=== PATIENT | male | born 1960 | race Caucasian/White ===

== ENCOUNTER 2019-11-11 16:50 | Emergency (ER) | payer OTHER, SELFPAY ==
--- NOTE | ~2019-11-11 | XR_ITS ---
EXAMINATION: XR ankle RT min 3V DATE: 11/11/2019 17:48 INDICATION: Twisting right knee injury with fibular fracture. TECHNIQUE: Anteroposterior, oblique, mortise, and lateral views of the right ankle includes the mid t o distal lower leg were obtained. COMPARISON: Right foot radiographs dated 05/21/2017 FINDINGS: Alignment is normal. No fracture. Joint spaces are normal. Increase in size of a now moderate sized p lantar calcaneal spur. Soft tissues are unremarkable with no ankle joint effusion. IMPRESSION: 1. No acute osseous abnormality. Reviewed, dictated and finalized at location A. CLEANER
--- NOTE | ~2019-11-11 | XR_ITS ---
EXAMINATION: XR knee RT min 4V DATE: 11/11/2019 17:21 INDICATION: Lateral sided right knee pain post twisting injury TECHNIQUE: Anteroposterior, 2 oblique and crosstable lateral views of the right knee were obtained COMPARISON: 07/30/2018 FINDINGS: One cortical width lateral displacement of an oblique extra-articular fracture at the proximal metadi aphyseal region of the right fibula. No other fractures identified. Normal alignment and joint spaces at the right knee on nonweightbearing imaging. No joint effusion/layering lipohemarthrosis. IMPRESSION: 1. One cortical width lateral displacement of an oblique fracture of the proximal right fibular metad iaphysis. Consider dedicated radiographs of the right tibia and fibula to exclude a nonvisualized mor e caudal injury. Reviewed, dictated and finalized at location A. 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 One cortical width lateral displacement of an oblique fracture of the proxim al right fibular metadiaphysis. Consider dedicated radiographs of the right tib ia and fibula to exclude a nonvisualized more caudal injury.
--- NOTE | 2019-11-11 17:47 | ED.LOWEXIN ---
HPI - Extremity Injury (Lower) General Chief Complaint: Extremity Injury, Lower Stated Complaint: knee injury Time Seen by Provider: 11/11/19 17:09 History of Present Illness HPI Narrative: Patient is a 59-year-old male who presents ER with right lower extremity pain. Patient was ambulating up some steps after doing laundry when he turned to the left side while planting his right leg. He then had sudden onset pain in the proximal aspect of his [place] and knee area. Reports his knee gave out on him. He has mild medial ankle pain. He is able to perform range of motion and has no new numbness or tingling. The pain radiates from the knee down to the ankle and then back up. It is worse with pointing his toes. Does not take any pain medicine. Related Data Allergies Allergy/AdvReac Type Severity Reaction Status Date / Time No Known Allergies Allergy Unverified 07/30/18 08:58 Review of Systems Musculoskeletal: Musculoskeletal: Reports arthralgias, Denies joint swelling and Denies muscle cramps Neurologic: Denies focal weakness and Denies numbness PMFSH Past Medical History Medical History (Updated 11/11/19 @ 19:07 by Live Caputo MD) Diabetes type 2, controlled Pneumothorax Traumatic hyphema of left eye Surgical History Surgical History (Updated 11/11/19 @ 17:53 by Live Caputo MD) S/P partial colectomy Family History Family History (Updated 04/13/16 @ 23:19 by DOCTOR UNKNOWN) Father Cerebrovascular accident Family history of diabetes mellitus in first degree relative Family history of malignant neoplasm Mother Family history of arthritis Other Diabetes mellitus Family history of allergic disorder Family history of cardiovascular disease Hypertension Social History Social History Smoking status: Current every day smoker Alcohol intake: current Exam Narrative: Exam Narrative: GENERAL: Well-appearing, well-nourished, and in no acute distress. HEAD: Normocephalic, atraumatic. EXTREMITIES: Normal range of motion. Tender palpation over the proximal fibula in the right lower extremity and mild tenderness over the medial malleolus of the ankle. Otherwise normal strength and sensation to the affected lower extremity on the right. SKIN: Warm, dry, no rash. NEURO: No focal deficits. Alert and oriented x3. PSYCH: Normal mood and affect. Course Course Emergency Course: Patient informed of results. Discussed with Dr. Grebing. Patient will be placed in knee immobilizer by nursing staff and given crutches to ambulate. Vital Signs Vital signs: Vital Signs Temperature 97.8 F 11/11/19 18:02 Pulse Rate 91 11/11/19 18:02 Respiratory Rate 20 11/11/19 18:02 Blood Pressure 121/79 11/11/19 18:02 Pulse Oximetry 95 11/11/19 18:02 Temperature 97.8 F 11/11/19 18:02 Pulse Rate 91 11/11/19 18:02 Respiratory Rate 20 11/11/19 18:02 Blood Pressure 121/79 11/11/19 18:02 Pulse Oximetry 95 11/11/19 18:02 MDM - Extremity Injury (Lower) Imaging Data Radiologist's impression: ITS Impressions Knee X-Ray 11/11/19 17:29 IMPRESSION: 1. One cortical width lateral displacement of an oblique fracture of the proximal right fibular metadiaphysis. Consider dedicated radiographs of the right tibia and fibula to exclude a nonvisualized more caudal injury. Ankle X-Ray 11/11/19 18:06 IMPRESSION: 1. No acute osseous abnormality. Discharge Plan Discharge Clinical Impression: Closed right fibular fracture Qualifiers: Encounter type: initial encounter Fibula location: proximal Fracture morphology: unspecified fracture morphology Qualified Code(s): S82.831A - Other fracture of upper and lower end of right fibula, initial encounter for closed fracture Patient Disposition: Home, Self-Care Condition: Stable Instructions: Leg Fracture (ED) Additional Instructions: Bear weight as tolerated on the affected lower extremity. Take [place] as need
[2019-11-11 18:02] VITALS: BP 121/79; PULSE 91; RESP 20; TEMP 36.6; O2SAT 95
[2019-11-11 19:28] VITALS: BP 140/82; PULSE 80; RESP 18; TEMP 36.8; O2SAT 97
== END 2019-11-11 19:30 | disposition home or self-care (01) ==
PROVIDERS: Emergency Provider Emergency Medicine; PCP Emergency Medicine
DX: S82.831A Other fracture of upper and lower end of right fibula, initial encounter for closed fracture (principal); E11.9 Type 2 diabetes mellitus without complications; X50.0XXA Overexertion from strenuous movement or load, initial encounter
CPT/HCPCS: 73564; 73610; 99284

== ENCOUNTER 2020-04-09 10:40 | Emergency (ER) | payer OTHER, SELFPAY ==
[2020-04-09 11:10] VITALS: BP 148/92; PULSE 118; RESP 20; TEMP 36.6; O2SAT 95
[2020-04-09 11:30] LABS: Basophils Absolute Auto 0.1 K/mm3 (0.0-0.1); Basophils Percent Auto 0.6 % (0.2-1.2); Eosinophils Absolute Auto 0.1 K/mm3 (0-0.3); Eosinophils Percent Auto 1.1 % (0-4.4); Hematocrit 42.4 % (42.0-52.0); Hemoglobin 14.4 g/dL (14.0-18.0); Immature Granulocyte Absolute 0.12 K/mm3 (0.00-0.031); Lymphocytes Absolute Auto 1.71 K/mm3 (0.9-3.2); Lymphocytes Percent Auto 13.9 % (18.3-44.2); Mean Corpuscular Hemoglobin 30.9 pg (26-34); Monocytes Absolute Auto 0.9 K/mm3 (0.1-0.6); Monocytes Percent Auto 6.9 % (2.6-8.5); Neutrophils Absolute Auto 9.4 K/mm3 (1.3-6.7); Neutrophils Percent Auto 76.5 % (45.5-73.1); Platelet Count Result 379 k/mm3 (150-375); Red Blood Count 4.66 M/mm3 (4.6-6.20); Red Cell Distribution Width 14.6 % (11.5-14.5); White Blood Count 12.3 K/mm3 (4.5-10.0)
[2020-04-09] MEDS: CLINDAMYCIN 900 MG/NS 50 ML 900 MG/50 ML PIGGYBACK 50 MG IVPB (11:39)
[2020-04-09 11:44] LABS: Alanine Aminotransferase 29 U/L (4-50); Albumin Level 4.4 g/dL (3.5-5.1); Alkaline Phosphatase 127 U/L (38-126); Anion Gap 16.9 mmol/L (7-16); Aspartate Amino Transferase 20 U/L (17-59); Bilirubin,Total 0.5 mg/dL (0.2-1.3); Blood Urea Nitrogen 9 mg/dL (9-20); CRP 6.4 mg/dL (<1.0); Calcium 9.3 mg/dL (8.4-10.2); Carbon Dioxide 21 mmol/L (22-30); Chloride 101 mmol/L (98-107); Estimated CRCL calculation 126 ml/min; Estimated Glomerular Filt Rate > 60; Glucose 134 mg/dL (75-110); Potassium 3.9 mmol/L (3.4-5.0); Sodium 135 mmol/L (137-145)
[2020-04-09] MEDS: FAMOTIDINE 20 MG/2 ML VIAL IV PUSH (12:06)
--- NOTE | 2020-04-09 12:34 | ED.EXTPRO ---
HPI - Extremity Problem General Chief complaint: Extremity Problem,Nontraumatic <EDGAR Vick Last Filed: 04/09/20 13:09> Stated complaint: abcess lt leg <EDGAR Vick Last Filed: 04/09/20 13:09> Time Seen by Provider: 04/09/20 10:47 <EDGAR Vick Last Filed: 04/09/20 13:09> Source: patient <EDGAR Vick Last Filed: 04/09/20 13:09> Mode of arrival: ambulatory <EDGAR Vick Last Filed: 04/09/20 13:09> Limitations: no limitations <EDGAR Vick Filed: 04/09/20 13:09> History of Present Illness HPI Narrative: Patient is a 59-year-old male who presents to emergency department for evaluation of red tender swollen areas to the left inner thigh patient notes that the pain began over the course of the last week patient attempted to mitesh the lesion unsuccessfully patient notes having had similar occurrences in the past patient noted chills but denies any fever vomiting weakness or immunocompromise. Patient has been taking [id number] medications with minimal improvement patient presents per private vehicle in no distress <EDGAR Vick Last Filed: 04/09/20 13:09> Related Data Home medications: Home Medications Medication Instructions Recorded Confirmed aspirin 81 mg tablet,delayed 81 mg PO DAILY 11/13/19 02/18/20 release bupropion HCl 150 mg 24 hr tablet, 150 mg PO QAM 11/13/19 02/18/20 extended release diltiazem HCl 360 mg 360 mg PO DAILY 11/13/19 02/18/20 capsule,extended release 24 hr losartan 100 mg tablet 100 mg PO DAILY 11/13/19 02/18/20 spironolactone 50 mg tablet 50 mg PO DAILY 11/13/19 02/18/20 tamsulosin 0.4 mg capsule 0.4 mg PO DAILY 11/13/19 02/18/20 omeprazole 40 mg capsule,delayed 40 mg PO DAILY 01/14/20 02/18/20 release ipratropium bromide 0.02 % 2.5 ml INHALATION Q6H PRN 01/27/20 02/18/20 solution for inhalation <Juan Jacob PA-C - Last Filed: 04/09/20 13:09> Allergies/Adverse reactions: Allergies Allergy/AdvReac Type Severity Reaction Status Date / Time No Known Allergies Allergy Verified 04/09/20 11:19 <Jaun Jacob PA-C - Last Filed: 04/09/20 13:09> Review of Systems Review of Systems: All systems reviewed & are unremarkable except as noted in HPI and below <Juan Jacob PA-C - Last Filed: 04/09/20 13:09> [facility] Past Medical History Medical History: Medical History Anxiety Arthritis Arthritis of knee, degenerative Bilateral knee pain BMI greater than 40 Collapsed lung Diabetes type 2, controlled Emphysema of lung Fracture of ankle (11/11/19) GERD (gastroesophageal reflux disease) Hypertension Maisonneuve fracture of right lower extremity Pneumonia Pneumothorax Shortness of breath Sleep apnea Traumatic hyphema of left eye Weight gain <Juan Jacob PA-C - Last Filed: 04/09/20 13:09> Surgical History Surgical History: Surgical History S/P partial colectomy <Juan Jacob PA-C - Last Filed: 04/09/20 13:09> Social History Social History: Social History Smoking status: Former smoker Smoking end date: 09/16/18 Alcohol intake: current Drinks per week: 5 Gender identity (if verbalized by the patient): Male <Juan Jacob PA-C - Last Filed: 04/09/20 13:09> Exam Narrative: Exam Narrative: GENERAL: Well-appearing, obese, and in no acute distress. HEAD: Normocephalic, atraumatic. EYES: No conjunctival injection or discharge noted ENT: Nares clear, no rhinorrhea or epistaxis. Mucous membranes moist. CHEST: Clear to auscultation. No respiratory distress. No wheezes rales or rhonchi HEART: Regular rate and rhythm. No murmur heard. EXTREMITIES: Normal range of motion. No edema. SKIN: Warm, dry, no rash. Te
[2020-04-09 13:20] VITALS: BP 140/88; PULSE 100; RESP 20; O2SAT 96
[2020-04-09] MEDS: TETANUS,DIPHTHERIA,AC PERTUSSIS ADULT (0.5 ML) BOOSTRIX IM (13:32)
== END 2020-04-09 13:40 | disposition home or self-care (01) ==
PROVIDERS: Emergency Medicine Emergency Medical Services; Emergency Provider General Practice; PCP Emergency Medicine
DX: L02.416 Cutaneous abscess of left lower limb (principal); Z23 Encounter for immunization; Z90.49 Acquired absence of other specified parts of digestive tract; Z79.82 Long term (current) use of aspirin; F41.9 Anxiety disorder, unspecified; M19.90 Unspecified osteoarthritis, unspecified site; E11.9 Type 2 diabetes mellitus without complications; J43.9 Emphysema, unspecified; K21.9 Gastro-esophageal reflux disease without esophagitis; I10 Essential (primary) hypertension; G47.30 Sleep apnea, unspecified
CPT/HCPCS: 10061; 36415; 80053; 85025; 86140; 87070; 87075; 87077; 87205; 90471; 90715; 96365; 96367; 96375; 99284; J0131

== ENCOUNTER 2020-06-01 11:42 | Outpatient (CLI) | payer OTHER, SELFPAY ==
--- NOTE | ~2020-06-01 | CT_ITS ---
EXAMINATION: CT lung screening DATE: 06/01/2020 12:15 INDICATION: History of tobacco dependence TECHNIQUE: Computed tomography (CT) of the chest was performed without intravenous contrast. The dose -length product was 461.45 mGy-cm. Automated exposure control and iterative reconstruction technique were employed. COMPARISON: CT dated 02/25/2017 FINDINGS: No thoracic lymphadenopathy. No significant pleural or pericardial effusion. Severe emphyse ma. There is bronchiectasis. Stable 5 mm right upper lobe nodule, image 57. Stable 8 mm left upper lo be nodule, image 50. New right lower lobe nodule measuring 5 mm, image 95. New 4 mm right lower lobe nodule, image 83. New left lower lobe nodules, largest measuring 6 mm, image 69. No pneumothorax. Mild thoracic spondyl osis. IMPRESSION: 1. Lung-Rads 4A: [address], or pet/CT follow-up is recommended. Reviewed, dictated and finalized at location B.
== END 2020-06-01 11:43 | disposition home or self-care (01) ==
LOC: ANHIMG 11:46
PROVIDERS: PCP Emergency Medicine; Visit Provider Emergency Medicine
DX: Z12.2 Encounter for screening for malignant neoplasm of respiratory organs (principal); Z87.891 Personal history of nicotine dependence; R91.8 Other nonspecific abnormal finding of lung field
CPT/HCPCS: G0297

== ENCOUNTER 2020-07-05 11:39 | Outpatient (NON) | payer OTHER, SELFPAY ==
[2020-07-05 22:15] LABS: SARS-CoV-2 RNA PCR Negative
== END 2020-07-05 11:40 ==
PROVIDERS: PCP Emergency Medicine; Visit Provider Emergency Medicine
DX: Z20.828 Contact with and (suspected) exposure to other viral communicable diseases (principal); R05 Cough
CPT/HCPCS: 87635; C9803; U0003

== ENCOUNTER 2020-09-01 06:37 | Outpatient (CLI) | payer OTHER, SELFPAY ==
--- NOTE | ~2020-09-01 | CT_ITS ---
EXAMINATION: CT lung screening DATE: 09/01/2020 07:00 INDICATION: History of tobacco dependence TECHNIQUE: Computed tomography (CT) of the chest was performed without intravenous contrast. The dose -length product was 446.36 mGy-cm. Automated exposure control and iterative reconstruction technique were employed. COMPARISON: Comparison to multiple prior studies sequentially, with oldest reviewed study dated 02/25 FINDINGS: There are are right upper pleural calcifications, possibly from previous asbestos exposure. There is gynecomastia. No thoracic lymphadenopathy. Heart size normal. No significant pleural or per icardial effusion. Severe emphysema.. Left lower lobe nodules are not significantly changed measuring 5 mm maximum dimension, image 65 stable left upper lobe nodule measuring 5 mm, image 55. Mild thorac ic spondylosis. No acute osseous abnormality. Visualized aspects of the upper abdomen are unremarkabl e. Gallbladder is present. Small accessory splenule noted.. IMPRESSION: 1. Lung Rads 4A: 3 month follow-up low dose CT or PET/CT recommended. Reviewed, dictated and finalized at location A. 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
== END 2020-09-01 06:38 | disposition home or self-care (01) ==
PROVIDERS: PCP Emergency Medicine; Visit Provider Nurse Practitioner Family
DX: R91.8 Other nonspecific abnormal finding of lung field (principal)
CPT/HCPCS: G0297

== ENCOUNTER 2020-09-14 08:17 | Outpatient (CLI) | payer OTHER, SELFPAY ==
[2020-09-14 09:00] VITALS: PULSE 98; O2SAT 94
[2020-09-14 09:05] VITALS: PULSE 108; O2SAT 86
[2020-09-14 09:10] VITALS: PULSE 110; O2SAT 87
[2020-09-14 09:15] VITALS: PULSE 116; O2SAT 90
[2020-09-14 09:25] VITALS: PULSE 89; O2SAT 94
--- NOTE | 2020-09-14 09:53 | HOMEO2EVAL ---
Home Oxygen Evaluation RC: Home Oxygen (O2) Evaluation Start: 09/14/20 09:50 Freq: Status: Active Protocol: RPE Activity Type Activity Date Activity User E-Sign Co-Sign Detail Recorded Client Recorded Date Recorded By Document 09/14/20 09:00 [email or web address] [email or web address] 09/14/20 09:52 DJO Document 09/14/20 09:05 [email or web address] [email or web address] 09/14/20 09:52 DJO Document 09/14/20 09:10 [email or web address] [email or web address] 09/14/20 09:52 DJO Document 09/14/20 09:15 [email or web address] [email or web address] 09/14/20 09:52 DJO Document 09/14/20 09:25 [email or web address] [email or web address] 09/14/20 09:52 DJO 09/14/20 09/14/20 09/14/20 09:00 09:05 09:10 Home O2 Evaluation Test Phase Resting Exercise Exercise Oxygen Delivery Room Air Room Air Nasal Cannula Oxygen Flow Rate (L/min) 1 Pulse Oximetry (90-100 %) 94 86 L 87 L Pulse Rate (60-100 beats/min) 98 108 H 110 H Activity Tolerance Rating of Perceived Dyspnea (PD) Ambulation Distance (feet) Treatment Charges O2 Evaluation 09/14/20 09/14/20 09:15 09:25 Home O2 Evaluation Test Phase Exercise Resting Oxygen Delivery Nasal Cannula Room Air Oxygen Flow Rate (L/min) 2 Pulse Oximetry (90-100 %) 90 94 Pulse Rate (60-100 beats/min) 116 H 89 Activity Tolerance Good Rating of Perceived Dyspnea (PD) +2 Mild, Some Difficulty, Noticeable to the Observer Ambulation Distance (feet) 700 Treatment Charges
--- NOTE | 2020-09-14 09:53 | PCRCNOTE ---
PT FAILED 6 MINUTE WALK, HOME O2 EVAL DONE AND FAXED TO [facility]
--- NOTE | 2020-09-15 12:03 | P.PCNPFT_ITS ---
PFT Interpretation Full pulmonary function testing 09/14/2020. 1. Flows appear lower side of normal with FEV1 2.42/79% PRED. 2. Following inhaled bronchodilator, there is little objective change. 3. Lung volumes appear normal. 4. Diffusing capacity appears disproportionately reduced. 5. Comparison to prior full pulmonary function testing of 10/04/2015 finds v olumes and diffusing capacity to be unchanged but flows to have declined since that time, disproportionately to aging. Fuad Bartlett MD MSc FACP FCCP
== END 2020-09-14 08:18 | disposition home or self-care (01) ==
PROVIDERS: PCP Emergency Medicine; Visit Provider Nurse Practitioner Family
DX: J43.9 Emphysema, unspecified (principal)
CPT/HCPCS: 94060; 94618; 94726; 94729

== ENCOUNTER 2020-12-23 09:30 | Outpatient (CLI) | payer OTHER, SELFPAY ==
--- NOTE | ~2020-12-23 | XR_ITS ---
EXAMINATION: XR wrist LT min 3V EXAM DATE: 12/23/2020 09:49 INDICATION: No known recent injury provided at this time. Pain of the left wrist. TECHNIQUE: Left wrist frontal, frontal with ulnar deviation, oblique and lateral projections obtained and reviewed. There is no prior study for comparison. FINDINGS: Left wrist scapholunate joint space is maintained. Moderate primary osteoarthritis at the radioscaphoid articulation and the 1st carpometacarpal joint. There are no bony erosions identified. There are no acute fractures or dislocations identified. There is no subcutaneous gas. The soft tis jennifer is unremarkable. There are no radiopaque foreign bodies. IMPRESSION: Moderate primary osteoarthritis at the left radioscaphoid articulation and the 1st carpom etacarpal joint. Reviewed, dictated and finalized at location A. IMPRESSION: Moderate primary osteoarthritis at the left radioscaphoid articulat ion and the 1st carpometacarpal joint.
== END 2020-12-23 09:31 | disposition home or self-care (01) ==
PROVIDERS: PCP Emergency Medicine; Visit Provider Emergency Medicine
DX: M19.032 Primary osteoarthritis, left wrist (principal)
CPT/HCPCS: 73110

== ENCOUNTER → 2021-02-04 01:39 | Outpatient (CLI) | payer OTHER, SELFPAY ==
[2021-02-04 19:55] LABS: SARS-CoV-2 RNA PCR Negative
== END ==
PROVIDERS: PCP Emergency Medicine; Visit Provider Internal Medicine Gastroenterology
DX: Z01.812 Encounter for preprocedural laboratory examination (principal); Z20.822 Contact with and (suspected) exposure to COVID-19
CPT/HCPCS: C9803; U0003; U0005

== ENCOUNTER 2021-02-07 03:12 | Day surgery (SDC) | payer OTHER, SELFPAY ==
[2021-01-26 14:02] VITALS: BMI 41.9
[2021-02-07 06:46] VITALS: BP 141/75; PULSE 95; RESP 18; TEMP 36.8; O2SAT 95; BMI 41.8
[2021-02-07] MEDS: LACTATED RINGERS 1,000 ML 150 ML IV CONT (06:57)
[2021-02-07 07:04] LABS: Glucose Point of Care 138 mg/dl (65-105)
--- NOTE | 2021-02-07 07:23 | WPDANESEPPF ---
Anes - Initial Pre Proc Eval Procedure: Operation Date: 02/07/21 08:00 Proposed Procedures p Esophagogastroduodenoscopy - Oz Rojas MD Date/Time: 02/07/21 07:23 Surgeon: Oz Rojas MD Pre Op Diagnosis: barretts esophagus Patient Data Age: 60 Gender: M Height: 5 ft 7 in Weight: 121.3 kg Last Vital Signs Temp 98.2 F 02/07/21 06:46 Pulse 95 02/07/21 06:46 Resp 18 02/07/21 06:46 BP 141/75 H 02/07/21 06:46 Pulse Ox 95 02/07/21 06:46 Allergies Allergy/AdvReac Type Severity Reaction Status Date / Time No Known Allergies Allergy Verified 02/07/21 06:42 Home Medications Medication Instructions Recorded Confirmed Type aspirin 81 mg tablet,delayed 81 mg PO DAILY 11/13/19 01/26/21 History release bupropion HCl 150 mg 24 hr tablet, 150 mg PO QAM 11/13/19 01/26/21 History extended release diltiazem HCl 360 mg 360 mg PO DAILY 11/13/19 01/26/21 History capsule,extended release 24 hr losartan 100 mg tablet 100 mg PO DAILY 11/13/19 01/26/21 History spironolactone 50 mg tablet 50 mg PO DAILY 11/13/19 01/26/21 History tamsulosin 0.4 mg capsule 0.4 mg PO DAILY 11/13/19 01/26/21 History omeprazole 40 mg capsule,delayed 40 mg PO DAILY 01/14/20 01/26/21 History release albuterol sulfate 90 mcg/actuation 2 inh INHALATION Q6H PRN #1 each 07/29/20 01/26/21 Rx breath activated powder inhaler fluticasone propionate 50 1 spray NASAL BID PRN #18.2 ml 07/29/20 01/26/21 Rx mcg/actuation nasal spray,suspension ipratropium 0.5 mg-albuterol 3 mg 3 ml INHALATION QID PRN #360 ml 07/29/20 01/26/21 Rx (2.5 mg base)/3 mL nebulization soln mometasone-formoterol HFA 200 2 puff INHALATION BID #13 gm 07/29/20 01/26/21 Rx mcg-5 mcg/actuation aerosol inhaler metformin 500 mg tablet 500 mg PO DAILY 01/04/21 01/26/21 History tiotropium bromide 18 mcg capsule 1 cap INHALATION DAILY #30 cap 01/04/21 01/26/21 Rx with inhalation device metformin 500 mg PO BID 02/07/21 02/07/21 History Laboratory Tests 02/07/21 07:00 POC Capillary Glucose 138 mg/dl H mg/dl (65-105) Patient hx anesthesia problems: none Family hx anesthesia problems: none PMFSH Past Medical History Medical History Anxiety Arthritis Arthritis of knee, degenerative Bilateral knee pain BMI greater than 40 Collapsed lung Diabetes type 2, controlled Emphysema of lung Fracture of ankle (11/11/19) GERD (gastroesophageal reflux disease) Hypertension Left knee DJD Maisonneuve fracture of right lower extremity Pneumonia Pneumothorax Right knee DJD Shortness of breath Sleep apnea Traumatic hyphema of left eye Weight gain Surgical History Surgical History S/P partial colectomy Family History Family History Father Cerebrovascular accident Family history of diabetes mellitus in first degree relative Family history of malignant neoplasm Mother Family history of arthritis Other Arthritis Diabetes mellitus Family history of allergic disorder Family history of cardiovascular disease Heart disease Hypertension Social History Social History Smoking status: Former smoker Tobacco type: cigarettes Smoking end date: 09/16/18 Alcohol intake: current Drinks per week: 5 Substance use: never Substance use type: does not use Living arrangements: with friend(s) Gender identity (if verbalized by the patient): Male Spiritual care concerns: No Anes - Eval Final PreProcedure Day of Procedure 02/07/21 07:23 Patient weight: morbidly obese Heart: regular rate and rhythm Lungs: clear to auscultation Airway: Mallampati scale class III Neurological: alert and oriented Last oral intake: >/= 8 hours ASA classification: IV Emergent: no Anesthetic plan: p
[2021-02-07] MEDS: BENZOCAINE (*SP) 60 ML SPRAY CAN (HURRICAINE) 1 SPRAY MUCOUS MEM (07:49)
[2021-02-07 08:01] VITALS: BP 123/71; PULSE 99; RESP 28; O2SAT 95
[2021-02-07 08:11] VITALS: BP 118/74; PULSE 92; RESP 17; O2SAT 96
[2021-02-07 08:21] VITALS: BP 127/85; PULSE 91; RESP 20; O2SAT 98
--- NOTE | 2021-02-08 14:40 | PM.HPGS ---
History of Present Illness History of Present Illness Consent: Risks, benefits, and alternatives have been discussed and questions answered. Patient agrees to proceed with procedure. Chief complaint: barretts esophagus Narrative: Ivan Lawson is a 60 year old male with known Julian's esophagus who is overdue for his follow-up endoscopy. Also, his father from esophageal cancer. He is having minimal symptoms now and no dysphagia Review of Systems Review of Systems: All systems reviewed & are unremarkable except as noted in HPI and below PMFSH Past Medical History Medical History Anxiety Arthritis Arthritis of knee, degenerative Bilateral knee pain BMI greater than 40 Collapsed lung Diabetes type 2, controlled Emphysema of lung Fracture of ankle (11/11/19) GERD (gastroesophageal reflux disease) Hypertension Left knee DJD Maisonneuve fracture of right lower extremity Pneumonia Pneumothorax Right knee DJD Shortness of breath Sleep apnea Traumatic hyphema of left eye Weight gain Surgical History Surgical History S/P partial colectomy Family History Family History Father Cerebrovascular accident Family history of diabetes mellitus in first degree relative Family history of malignant neoplasm Mother Family history of arthritis Other Arthritis Diabetes mellitus Family history of allergic disorder Family history of cardiovascular disease Heart disease Hypertension Social History Social History Smoking status: Former smoker Tobacco type: cigarettes Smoking end date: 09/16/18 Alcohol intake: current Drinks per week: 5 Substance use: never Substance use type: does not use Living arrangements: with friend(s) Gender identity (if verbalized by the patient): Male Spiritual care concerns: No Meds Home Medications and Allergies Home Medications Medication Instructions Recorded Confirmed Type aspirin 81 mg tablet,delayed 81 mg PO DAILY 11/13/19 01/26/21 History release bupropion HCl 150 mg 24 hr tablet, 150 mg PO QAM 11/13/19 01/26/21 History extended release diltiazem HCl 360 mg 360 mg PO DAILY 11/13/19 01/26/21 History capsule,extended release 24 hr losartan 100 mg tablet 100 mg PO DAILY 11/13/19 01/26/21 History spironolactone 50 mg tablet 50 mg PO DAILY 11/13/19 01/26/21 History tamsulosin 0.4 mg capsule 0.4 mg PO DAILY 11/13/19 01/26/21 History omeprazole 40 mg capsule,delayed 40 mg PO DAILY 01/14/20 01/26/21 History release albuterol sulfate 90 mcg/actuation 2 inh INHALATION Q6H PRN #1 each 07/29/20 01/26/21 Rx breath activated powder inhaler fluticasone propionate 50 1 spray NASAL BID PRN #18.2 ml 07/29/20 01/26/21 Rx mcg/actuation nasal spray,suspension ipratropium 0.5 mg-albuterol 3 mg 3 ml INHALATION QID PRN #360 ml 07/29/20 01/26/21 Rx (2.5 mg base)/3 mL nebulization soln mometasone-formoterol HFA 200 2 puff INHALATION BID #13 gm 07/29/20 01/26/21 Rx mcg-5 mcg/actuation aerosol inhaler metformin 500 mg tablet 500 mg PO DAILY 01/04/21 01/26/21 History tiotropium bromide 18 mcg capsule 1 cap INHALATION DAILY #30 cap 01/04/21 01/26/21 Rx with inhalation device metformin 500 mg PO BID 02/07/21 02/07/21 History Allergies Allergy/AdvReac Type Severity Reaction Status Date / Time No Known Allergies Allergy Verified 02/07/21 06:42 Exam Const: General: alert Orientation/consciousness: patient oriented x3 Resp: Auscultation: clear to auscultation bilaterally Cardio: Rhythm: regular rhythm GI: GI Palp: Yes Soft to palpation and No Tenderness to palpation present (GI) Neuro: General: patient oriented x3 Assessment and Plan Assessment and plan (1) Julian's esophagus: Code(s): K22.70 - B
== END 2021-02-07 08:30 | disposition home or self-care (01) ==
PROVIDERS: PCP Emergency Medicine; Visit Provider Internal Medicine Gastroenterology
PROC: 0DJ08ZZ Inspection of Upper Intestinal Tract, Via Natural or Artificial Opening Endoscopic (ICD-10-PCS; CPT 43235; principal; 2021-02-07 08:00)
DX: K22.70 Barrett's esophagus without dysplasia (principal); I10 Essential (primary) hypertension; E11.9 Type 2 diabetes mellitus without complications; J43.9 Emphysema, unspecified; K21.9 Gastro-esophageal reflux disease without esophagitis; M17.0 Bilateral primary osteoarthritis of knee; R63.5 Abnormal weight gain; G47.30 Sleep apnea, unspecified; F41.9 Anxiety disorder, unspecified; Z90.49 Acquired absence of other specified parts of digestive tract; Z80.0 Family history of malignant neoplasm of digestive organs; Z87.891 Personal history of nicotine dependence
CPT/HCPCS: 43239; 82948; 88305; J2704; J7120

== ENCOUNTER 2021-03-16 05:10 | Emergency (ER) | payer OTHER, SELFPAY ==
[2021-03-16] VITALS (12 sets, daily range): BP systolic 140–164; BP diastolic 88–99; PULSE 95–105; RESP 15–23; TEMP 37.2; O2SAT 96–98
--- NOTE | ~2021-03-16 | CT_ITS ---
EXAMINATION: CT brain wo con DATE: 03/16/2021 05:33 INDICATION: Altered mental status. TECHNIQUE: Computed tomography (CT) of the head was performed without intravenous contrast. Sagittal and coronal reconstructions were performed. The mA was adjusted according to patient size. Iterative reconstruction technique was employed. The dose-length product was 605.33 mGy-cm. COMPARISON: None FINDINGS: No acute intracranial hemorrhage, acute infarction or abnormal extra axial fluid collection. There is mild scattered white matter hypoattenuation consistent with chronic small vessel ischemic disease. V entricles are normal and symmetric. No mass/mass effect. Changes of left intraocular lens replacement . The orbits, paranasal sinuses and mastoid air cells are normal. Intracranial calcified cerebral ath erosclerosis is noted. IMPRESSION: 1. No acute intracranial process. 2. Mild scattered white matter hypoattenuation consistent with chronic small vessel ischemic disease. Reviewed, dictated and finalized at location A. IMPRESSION: 1. No acute intracranial process. 2. Mild scattered white matter hypoattenuation consistent with chronic small ve ssel ischemic disease.
--- NOTE | 2021-03-16 05:54 | ECG_ITS ---
Measurements Intervals [place] Rate: 98 P: 33 [place]: 178 QRS: 10 QRSD: 92 T: 28 QT: 338 QTc: 432 Interpretive Statements SINUS RHYTHM BASELINE ARTIFACT- I, III NORMAL ECG Electronically Signed On 03-16-2021 6:32:25 CDT by Doug Leon D.O.
--- NOTE | 2021-03-16 05:55 | ED.GENADULT ---
HPI - General Adult General Chief complaint: Unspecified Stated complaint: anxiety/weakness Time Seen by Provider: 03/16/21 05:51 Source: patient Mode of arrival: ambulatory Limitations: no limitations History of Present Illness HPI narrative: Patient is a 60-year-old male complaining of having a dream about having a dream about having another dream about having a stroke and so it worried him and now he is here in the emergency room. Patient denies any speech or visual disturbance, focal weakness or numbness, unsteady gait, chest pain, shortness of breath, abdominal pain, nausea, vomiting, fever or chills. Related Data Home Medications Medication Instructions Recorded Confirmed aspirin 81 mg tablet,delayed 81 mg PO DAILY 11/13/19 03/14/21 release bupropion HCl 150 mg 24 hr tablet, 150 mg PO QAM 11/13/19 03/14/21 extended release diltiazem HCl 360 mg 360 mg PO DAILY 11/13/19 03/14/21 capsule,extended release 24 hr losartan 100 mg tablet 100 mg PO DAILY 11/13/19 03/14/21 spironolactone 50 mg tablet 50 mg PO DAILY 11/13/19 03/14/21 tamsulosin 0.4 mg capsule 0.4 mg PO DAILY 11/13/19 03/14/21 omeprazole 40 mg capsule,delayed 40 mg PO DAILY 01/14/20 03/14/21 release metformin 500 mg PO BID 02/07/21 03/14/21 Allergies Allergy/AdvReac Type Severity Reaction Status Date / Time No Known Allergies Allergy Verified 03/16/21 05:21 Review of Systems Review of Systems: All systems reviewed & are unremarkable except as noted in HPI and below Constitutional: Constitutional: Denies body ache(s), Denies chills, Denies excessive sweating, Denies fatigue, Denies fever(s), Denies headache(s), Denies lethargy, Denies malaise, Denies weakness and Denies weight loss Eyes: Eyes: Denies blurry vision, Denies change in vision and Denies loss of vision ENT: Denies dizziness, Denies ear discharge, Denies headache(s), Denies lip swelling, Denies epistaxis, Denies nasal congestion, Denies neck pain, Denies throat swelling and Denies tongue swelling Cardiovascular: Cardiovascular: Denies chest pain, Denies chest pain at rest, Denies chest pain with activity, Denies diaphoresis, Denies rapid heart rate, Denies edema, Denies irregular heart rhythm, Denies lightheadedness, Denies palpitations, Denies dyspnea and Denies dyspnea on exertion Respiratory: Respiratory: Denies chest congestion, Denies cough, Denies hemoptysis, Denies dyspnea and Denies dyspnea on exertion Gastrointestinal: Gastrointestinal: Denies abdominal pain, Denies melena, Denies hematochezia, Denies diarrhea, Denies nausea, Denies vomiting and Denies hematemesis Musculoskeletal: Musculoskeletal: Denies abnormal gait, Denies deformity, Denies joint swelling, Denies limited range of motion, Denies neck pain and Denies numbness Neurologic: Denies Abnormal speech present, Denies abnormal gait, Denies confusion, Denies dizziness, Denies headache(s), Denies focal weakness, Denies loss of vision, Denies numbness, Denies Other visual disturbances, Denies Sensory deficit (Neuro) and Denies weakness Psychiatric: Psychiatric: Denies confusion, Denies depression, Denies auditory hallucinations, Denies homicidal ideation and Denies suicidal ideation Endocrine: Endocrine: Denies cold intolerance, Denies excessive sweating, Denies fatigue, Denies heat intolerance and Denies palpitations Hematologic/Lymphatic: Hematologic/Lymphatic: Denies easy bleeding and Denies easy bruising Allergic/Immunologic: Allergic/Immunologic: Denies lip swelling, Denies throat swelling and Denies tongue swelling PMFSH Past Medical History Medical History Anxiety Arthritis Arthritis of knee, degenerative Bilateral knee pain BMI greater than 40 Collapsed lung Diabetes type 2, controlled Emphysema of lung Fracture of ankle (11/11/19) GERD (gastroesophageal reflux disease) Hypertension Knee joint effusion Left knee DJD Maisonneuve fracture of right lower ex
[2021-03-16 06:04] LABS: Basophils Percent Auto 0.2 % (0.2-1.2); Eosinophils Percent Auto 0.1 % (0-4.4); Hematocrit 44.6 % (42.0-52.0); Hemoglobin 14.9 g/dL (14.0-18.0); Immature Granulocyte Absolute 0.21 K/mm3 (0.00-0.031); Immature Granulocyte Percent A 1.1 % (0-0.5); Lymphocytes Absolute Auto 2.02 K/mm3 (0.9-3.2); Lymphocytes Percent Auto 10.8 % (18.3-44.2); Mean Corpuscular HGB Conc 33.4 g/dl (32-36); Mean Corpuscular Hemoglobin 31.4 pg (26-34); Mean Corpuscular Volume 94.1 fl (80-100); Monocytes Absolute Auto 1.1 K/mm3 (0.1-0.6); Monocytes Percent Auto 5.7 % (2.6-8.5); Neutrophils Absolute Auto 15.3 K/mm3 (1.3-6.7); Neutrophils Percent Auto 82.1 % (45.5-73.1); Platelet Count Result 428 k/mm3 (150-375); Red Blood Count 4.74 M/mm3 (4.6-6.20); Red Cell Distribution Width 13.2 % (11.5-14.5); White Blood Count 18.7 K/mm3 (4.5-10.0)
[2021-03-16 06:24] LABS: Anion Gap 14 mmol/L (8-16); Blood Urea Nitrogen 10 mg/dL (9-20); Calcium 9.5 mg/dL (8.4-10.2); Carbon Dioxide 21 mmol/L (22-30); Chloride 105 mmol/L (98-107); Estimated CRCL calculation 139 ml/min; Estimated Glomerular Filt Rate > 60; Glucose 158 mg/dL (75-110); Potassium 3.8 mmol/L (3.4-5.0); Sodium 140 mmol/L (137-145)
[2021-03-16 06:36] LABS: Troponin I < 0.012 ng/mL (0.000-0.034)
[2021-03-16] MEDS: ASPIRIN 81 MG CHEWABLE TABLET 324 MG PO (07:13)
== END 2021-03-16 07:15 | disposition home or self-care (01) ==
PROVIDERS: Emergency Provider Emergency Medicine; PCP Emergency Medicine
DX: I10 Essential (primary) hypertension (principal); E11.9 Type 2 diabetes mellitus without complications; J43.9 Emphysema, unspecified; F41.9 Anxiety disorder, unspecified; Z87.891 Personal history of nicotine dependence; Z79.82 Long term (current) use of aspirin; Z79.84 Long term (current) use of oral hypoglycemic drugs
CPT/HCPCS: 36415; 70450; 80048; 84484; 85025; 93005; 99284; A9270

== ENCOUNTER 2021-04-06 12:50 | Outpatient (CLI) | payer OTHER, SELFPAY ==
--- NOTE | ~2021-04-06 | US_ITS ---
EXAMINATION: US carotid duplex BI DATE: 04/06/2021 13:39 INDICATION: Slurred speech, hemiparesis and facial weakness. TECHNIQUE: Grayscale, color Doppler, and pulsed Doppler images of the cervical carotid arteries were obtained. The degree of vessel stenosis is placed in one of the following categories: normal, <50%, 5 0-69%, >=70% but less than near-occlusion, near-occlusion, or total occlusion. Note that percent sten osis relative to normal distal artery lumen diameter is indirectly measured from velocity measurement s as described by Williams, et al. Radiology 2003; 229:340-346. COMPARISON: None. FINDINGS: RIGHT: The right common carotid artery (CCA) peak systolic velocity (PSV) is 127 cm/s. The right internal ca rotid artery (ICA) PSV is 59 cm/s. The right ICA end-diastolic velocity (EDV) is 19 cm/s. The right I CA/CCA PSV ratio is 0.5. Grayscale and color Doppler images yield an estimate of <50% diameter reduct ion from plaque in the ICA. The external carotid artery (ECA) PSV is 188 cm/s. There is antegrade kashif w in the right vertebral artery. LEFT: The left CCA PSV is 93 cm/s. The left ICA PSV is 81 cm/s. The left ICA EDV is 28 cm/s. The left ICA/C CA PSV ratio is 0.9. Grayscale and color Doppler images yield an estimate of <50% diameter reduction from plaque in the ICA. The ECA PSV is 93 cm/s. There is antegrade flow in the left vertebral artery. IMPRESSION: 1. <50% stenosis in the right internal carotid artery. 2. <50% stenosis in the left internal carotid artery. Reviewed, dictated and finalized at location A.
== END 2021-04-06 12:51 | disposition home or self-care (01) ==
PROVIDERS: PCP Emergency Medicine; Visit Provider Emergency Medicine
DX: I65.23 Occlusion and stenosis of bilateral carotid arteries (principal); R47.81 Slurred speech; R20.2 Paresthesia of skin
CPT/HCPCS: 93880

== ENCOUNTER 2021-05-11 08:40 | Outpatient (CLI) | payer OTHER, SELFPAY ==
--- NOTE | ~2021-05-11 | CT_ITS ---
EXAMINATION: CT diagnostic chest wo con EXAM DATE: 05/11/2021 09:12 INDICATION: R91.8 - Other nonspecific abnormal finding of lung field. Cough and shortness of breath. TECHNIQUE: Spiral CT of the chest without contrast. Axial, coronal and sagittal images of the chest were reviewed. Coronal maximum intensity pixel images of chest reviewed. The dose-length product ( DLP) for this examination was 451.92 mGy-cm. The exposure was tailored according to patient size (au to mA exposure control), and iterative reconstruction (ASIR) was used as additional dose reduction te chnique. Comparison is made to prior examination from 09/01/2020. FINDINGS: Interval development of left upper lobe peripheral wedge-shaped opacity measuring about 4 cm, with some soft tissue density extension toward the hilum. Differential diagnosis includes pneumon ia and cancer. Please clinically correlate. Interval development of mildly enlarged prevascular lymph node measuring 1.5 x 1.1 cm. There is severe bilateral upper lobe emphysema. There are no pleural or pericardial effusions. Trac heobronchial tree is patent. There is no pneumothorax. Heart normal in size. There is mild to m oderate coronary arterial calcification, arterial sclerosis. Upper abdomen is unremarkable. There is thoracic spondylosis without osteoblastic or osteolytic lesions identified. Right upper pleural ca lcification. Bilateral gynecomastia. IMPRESSION: 1. Interval development of ill-defined 4 cm left upper lobe masslike opacity, differential diagnosis including cancer, pneumonia, cryptogenic organizing pneumonia. If patient has pneumonia clinically, consider treating and obtaining repeat chest x-ray or CT in 2-4 weeks. If not, consider percutaneous biopsy. 2. Development of mildly enlarged prevascular lymph node. 3. Severe upper lobe emphysema. I left a message for Dr. Sadiq Nunez on 05/11/2021 12:37 CDT. I provided my direct number, request ed call back to discuss findings in this case. Reviewed, dictated and finalized at location A. IMPRESSION: 1. Interval development of ill-defined 4 cm left upper lobe masslike opacity, differential diagnosis including cancer, pneumonia, cryptogenic organizing pneu monia. If patient has pneumonia clinically, consider treating and obtaining rep eat chest x-ray or CT in 2-4 weeks. If not, consider percutaneous biopsy. 2. Development of mildly enlarged prevascular lymph node. 3. Severe upper lobe emphysema. I left a message for Dr. Sadiq Nunez on 05/11/2021 12:37 CDT. I provided my direct number, requested call back to discuss findings in this case.
== END 2021-05-11 08:41 | disposition home or self-care (01) ==
PROVIDERS: PCP Emergency Medicine; Visit Provider Nurse Practitioner Family
DX: R91.8 Other nonspecific abnormal finding of lung field (principal); J43.9 Emphysema, unspecified
CPT/HCPCS: 71250

== ENCOUNTER 2021-05-24 09:06 | Outpatient (CLI) | payer OTHER, SELFPAY ==
[2021-05-17 10:24] VITALS: BMI 41.5
--- NOTE | ~2021-05-24 | CT_ITS ---
EXAMINATION:CT diagnostic chest wo con DATE: 05/24/2021 11:12 INDICATION: Left lung upper lobe mass. TECHNIQUE: Computed tomography (CT) of the chest was performed without intravenous contrast. Automate d exposure control and iterative reconstruction technique were employed. The dose-length product (DLP ) was 709.02 mGy-cm. COMPARISON: Chest CT 05/11/2021, 09/01/2020 FINDINGS: There is moderate emphysema including areas of focally severe emphysema in the upper lobes. There is a 5 mm nodule in right lung upper lobe, stable from 09/01/2020, likely benign. There is a 4 mm nodule in right lower lobe is stable from 09/01/2020, likely benign. There are peripheral areas o f mild atelectasis and scarring in right lung. In left upper lobe, there are airspace opacities shanti ing 7.5 x 6.7 cm including areas of cavitation and peripheral air bronchograms. No pleural effusion. There is a staple line in right lung upper lobe. There is a 10 x 14 mm node in the aorticopulmonary w indow, increased from 12 x 9 mm on 09/01/2020. There is mild left hilar lymphadenopathy, similarly wo rsened from 09/01/2020. The heart size is normal. There are coronary artery calcifications. No perica rdial effusion. There is diffuse hepatic steatosis. There is a 13 mm mass in left adrenal gland measu ring low-attenuation, consistent with an adenoma. Bilateral gynecomastia is noted. There is severe th oracic spondylosis. IMPRESSION: 1. Airspace opacities in left lung upper lobe with worsening from 05/11/21, consistent with pneumonia. The patient has not received recent antibiotics. Chest CT with contrast is recommended in [address] administration of a course of antibiotics to confirm improvement or resolution and exclude malign jake. I discussed this case with Sadiq Nunez. 2. Mild left hilar and mediastinal lymphadenopathy, likely reactive. 3. Moderate emphysema. Reviewed, dictated and finalized at location A. IMPRESSION: 1. Airspace opacities in left lung upper lobe with worsening from 05/11/21, cons istent with pneumonia. The patient has not received recent antibiotics. Chest C T with contrast is recommended in 1 month after administration of a course of a ntibiotics to confirm improvement or resolution and exclude malignancy. I discu ssed this case with Sadiq Nunez. 2. Mild left hilar and mediastinal lymphadenopathy, likely reactive. 3. Moderate emphysema.
[2021-05-24 09:46] LABS: Mean Platelet Volume 8.9 fl (7.4-10.4); Platelet Count Result 403 k/mm3 (150-375)
[2021-05-24 09:53] LABS: Prothrombin Time 12.7 Seconds (11.1-14.7)
== END 2021-05-24 09:07 | disposition home or self-care (01) ==
PROVIDERS: Radiology Diagnostic Radiology; PCP Emergency Medicine; Visit Provider Nurse Practitioner Family
DX: J43.9 Emphysema, unspecified (principal); R91.8 Other nonspecific abnormal finding of lung field; R59.0 Localized enlarged lymph nodes
CPT/HCPCS: 36415; 71250; 85049; 85610

== ENCOUNTER 2021-06-21 07:59 | Outpatient (CLI) | payer OTHER, SELFPAY ==
--- NOTE | ~2021-06-21 | XR_ITS ---
XR chest 2V DATE: 06/21/2021 08:14 INDICATION: One-month follow-up of left upper lobe airspace opacities consistent with pneumonia TECHNIQUE: PA and lateral views COMPARISON: 05/24/[address] chest FINDINGS: There is focal patchy consolidation in the left upper lobe which appears mildly improved si nce 05/24/2021 CT chest examination. Continued radiographic follow-up in 2-4 weeks is recommended. Emphysematous changes are again noted. Heart size is within normal range. No pleural effusion or pulmonary vascular congestion or pneumothor ax. IMPRESSION: Mild improvement of patchy left upper lobe consolidating infiltrate; continued radiograph ic follow-up in 2-4 weeks is recommended Emphysema Reviewed, dictated and finalized at location A. IMPRESSION: Mild improvement of patchy left upper lobe consolidating infiltrate ; continued radiographic follow-up in 2-4 weeks is recommended Emphysema
== END 2021-06-21 08:00 | disposition home or self-care (01) ==
LOC: ANHIMG 08:01
PROVIDERS: PCP Emergency Medicine; Visit Provider Nurse Practitioner Family
DX: J43.9 Emphysema, unspecified (principal)
CPT/HCPCS: 71046

== ENCOUNTER 2021-07-03 08:45 | Outpatient (CLI) | payer OTHER, SELFPAY ==
--- NOTE | ~2021-07-03 | CT_ITS ---
EXAMINATION:CT diagnostic chest wo con DATE: 07/03/2021 09:31 INDICATION: Other nonspecific abnormal finding of lung field. TECHNIQUE: Computed tomography (CT) of the chest was performed without intravenous contrast. Automate d exposure control and iterative reconstruction technique were employed. The dose-length product (DLP ) was 645.54 mGy-cm. COMPARISON: Chest CT 05/24/2021, 09/01/2020, 05/11/2021, chest 2 views 06/21/2021 FINDINGS: There is moderate emphysema. There is mild atelectasis and scarring bilaterally. There is a 5 mm nodule in peripheral right upper lobe, stable from 09/01/20. There are airspace opacities in le ft upper lobe measuring 5.7 x 5.0 cm, decreased from 7.1 x 6.1 cm on 05/24/21 and with interval change in morphology. There are 4 mm and 3 mm nodules in left lower lobe, stable from 09/01/20. There is a s taple line in right upper lobe. No pleural effusion. There is diffuse hepatic steatosis. The heart si ze is normal. There are coronary artery calcifications. No pericardial effusion. There is mild medias tinal and left hilar lymphadenopathy. A node in the aorticopulmonary window measures 14 x 10 mm. Ther e is severe thoracic spondylosis. IMPRESSION: 1. Left upper lobe airspace opacities with interval improvement, consistent with pneumonia. Continued imaging follow-up is recommended to confirm resolution. 2. Moderate emphysema. 3. Mild mediastinal and left hilar lymphadenopathy, likely reactive. Reviewed, dictated and finalized at location A. IMPRESSION: 1. Left upper lobe airspace opacities with interval improvement, consistent wit h pneumonia. Continued imaging follow-up is recommended to confirm resolution. 2. Moderate emphysema. 3. Mild mediastinal and left hilar lymphadenopathy, likely reactive.
== END 2021-07-03 08:46 | disposition home or self-care (01) ==
LOC: ANHIMG 08:46
PROVIDERS: PCP Emergency Medicine; Visit Provider Nurse Practitioner Family
DX: R91.8 Other nonspecific abnormal finding of lung field (principal); J43.9 Emphysema, unspecified; R59.0 Localized enlarged lymph nodes
CPT/HCPCS: 71250

== ENCOUNTER 2021-09-12 11:38 | Outpatient (CLI) | payer OTHER, SELFPAY ==
--- NOTE | ~2021-09-12 | XR_ITS ---
EXAMINATION: XR chest 2V DATE: 09/12/2021 11:54 INDICATION: Pneumonia, unspecified organism. TECHNIQUE: Frontal and lateral views of the chest were obtained. COMPARISON: Chest 2 views 06/21/2021, chest CT 07/03/2021 FINDINGS: The lungs demonstrate lucencies and reticular opacities with architectural distortion, cons istent with emphysema. There is a nodule in left upper lobe. No pleural effusion or pneumothorax. The heart size is normal. IMPRESSION: 1. Nodule in left lung upper lobe with interval improvement, likely infection. 2. Emphysema. Reviewed, dictated and finalized at location B. NG OFFICER
== END 2021-09-12 11:39 | disposition home or self-care (01) ==
LOC: ANHIMG 11:39
PROVIDERS: PCP Emergency Medicine; Visit Provider Nurse Practitioner Family
DX: J18.9 Pneumonia, unspecified organism (principal); J43.9 Emphysema, unspecified
CPT/HCPCS: 71046

== ENCOUNTER 2021-10-03 07:46 | Outpatient (CLI) | payer OTHER, SELFPAY ==
--- NOTE | 2021-10-03 07:54 | ECG_ITS ---
Measurements Intervals [place] Rate: 93 P: 14 HI: 191 QRS: 10 QRSD: 89 T: 46 QT: 334 QTc: 416 Interpretive Statements SINUS RHYTHM BASELINE ARTIFACT- AVF, V5 NORMAL ECG Electronically Signed On 10-03-2021 8:18:12 DIRECTOR HEDIS by Doug Leon D.O.
[2021-10-03 08:34] LABS: Anion Gap 12 mmol/L (8-16); Blood Urea Nitrogen 8 mg/dL (9-20); Calcium 9.1 mg/dL (8.4-10.2); Carbon Dioxide 26 mmol/L (22-30); Chloride 97 mmol/L (98-107); Estimated Glomerular Filt Rate > 60; Glucose 141 mg/dL (65-110); Potassium 4.4 mmol/L (3.4-5.0); Sodium 135 mmol/L (137-145)
== END 2021-10-03 07:47 | disposition home or self-care (01) ==
LOC: ANHSURGERY 07:52
PROVIDERS: Anesthesiology; PCP Emergency Medicine; Visit Provider Plastic Surgery
DX: E11.9 Type 2 diabetes mellitus without complications (principal); I10 Essential (primary) hypertension; Z01.818 Encounter for other preprocedural examination
CPT/HCPCS: 36415; 80048; 93005

== ENCOUNTER 2021-10-05 01:32 | Day surgery (SDC) | payer OTHER, SELFPAY ==
[2021-09-29 14:20] VITALS: BMI 41.6
--- NOTE | 2021-09-29 14:33 | PC.NURSE ---
Report to the Outpatient Waiting Room, entrance under the green pavilion located off [facility], at time 7:00 on date 10/05/21. OR Time: 9:00. - You will be asked a series of questions to screen for COVID 19 for your protection. - A mask is required within the hospital. - No visitors are allowed at this time. Preoperative COVID Testing Requirements: TO BRING COPY OF CARD No COVID Test needed if: (proof is required; if not received patient will have Rapid Test prior to entry) - Patient has received COVID Vaccine at least 14 days prior to procedure date or - Patient has positive COVID test result within last 90 days of surgery date. COVID Test needed if above criteria is not met Patients may have clear liquids (water, carbonated beverages, clear teas, apple juice) until 3 hours prior to surgery (6:00) with a maximum of 20 ounces. - No food from midnight until time of surgery Take the following medications with a SIP of water the morning of surgery: INHALERS, BUPROPION, DILTIAZEM Medications to discontinue per physician: VITAMINS/SUPPLEMENTS Date to take last dose: 10/01/21 Please no make-up, nail khmer, hairspray, perfume, deodorant, or body powder the day of surgery. No jewelry (including any body piercings) or valuables the day of surgery, leave them at home. Please take a shower or bath the night before, or the morning of, surgery with an antibacterial soap. Wear comfortable, loose fitting clothing. - Jewelry must be removed prior to entering the operating room. Rings and piercings that are not removed may be cut off. - The hospital will not accept responsibility for valuables. - Please leave all valuables, including medications, at home the day of surgery. If you are going home after surgery, a licensed milk wagon driver must drive you home. - NO public transportation without another adult. - We recommend that an adult stay with you for 24 hours following discharge. - We also recommend that you do not drive, make important decision, drink alcoholic beverages, or take any drugs that were not prescribed by your health care provider for at least 24 hours after your discharge time. Follow any additional instructions given to you from your surgeon. Telephone instructions given to BRIAN VALDEZ and asked if any additional questions and then verbalized understanding. Patient advised to call surgeon office or pre surgery nurse liaison [phone] if any additional questions.
--- NOTE | 2021-10-04 16:01 | WPDANESEPPF ---
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 Patient Data Age: 61 Gender: M Height: 1.71 m Weight: 122.47 kg Allergies Allergy/AdvReac Type Severity Reaction Status Date / Time No Known Allergies Allergy Verified 10/05/21 07:30 Home Medications Medication Instructions Recorded Confirmed Type aspirin 81 mg tablet,delayed 81 mg PO DAILY 11/13/19 09/29/21 History release bupropion HCl 150 mg 24 hr tablet, 150 mg PO QAM 11/13/19 09/29/21 History extended release diltiazem HCl 360 mg 360 mg PO DAILY 11/13/19 09/29/21 History capsule,extended release 24 hr losartan 100 mg tablet 100 mg PO DAILY 11/13/19 09/29/21 History spironolactone 50 mg tablet 50 mg PO DAILY 11/13/19 09/29/21 History tamsulosin 0.4 mg capsule 0.4 mg PO DAILY 11/13/19 09/29/21 History omeprazole 40 mg capsule,delayed 40 mg PO DAILY 01/14/20 09/29/21 History release fluticasone propionate 50 1 spray NASAL BID PRN #18.2 ml 07/29/20 09/29/21 Rx mcg/actuation nasal spray,suspension ipratropium 0.5 mg-albuterol 3 mg 3 ml INHALATION QID PRN #360 ml 07/29/20 09/29/21 Rx (2.5 mg base)/3 mL nebulization soln mometasone-formoterol HFA 200 2 puff INHALATION BID #13 gm 07/29/20 09/29/21 Rx mcg-5 mcg/actuation aerosol inhaler tiotropium bromide 18 mcg capsule 1 cap INHALATION DAILY #30 cap 01/04/21 09/29/21 Rx with inhalation device metformin 500 mg PO BID 02/07/21 09/29/21 History Ventolin HFA 90 mcg/actuation See Rx Instructions .ROUTE 06/28/21 09/29/21 Rx aerosol inhaler .COMPLEX #18 gram NS multivitamin 1 tablet PO DAILY 09/29/21 09/29/21 History Patient hx anesthesia problems: none Family hx anesthesia problems: none Results Review: All pre-operative results and documents have been reviewed as part of the pre-operative evaluation. [facility] Past Medical History Medical History (Updated 10/04/21 @ 16:02 by Gabriele Ortiz MD) Anxiety Arthritis Arthritis of knee, degenerative Julian's esophagus Bilateral knee pain BMI greater than 40 Collapsed lung Diabetes type 2, controlled Emphysema of lung Fracture of ankle (11/11/19) GERD (gastroesophageal reflux disease) Hepatomegaly Hypertension Hypoxemia Knee joint effusion Left knee DJD Lung nodules Maisonneuve fracture of right lower extremity Morbid obesity with BMI of 40.0-44.9, adult Pneumonia Pneumothorax Right knee DJD Shortness of breath Sleep apnea Traumatic hyphema of left eye Weight gain Surgical History Surgical History S/P partial colectomy Family History Family History Father Cerebrovascular accident Family history of diabetes mellitus in first degree relative Family history of malignant neoplasm Mother Family history of arthritis Other Arthritis Diabetes mellitus Family history of allergic disorder Family history of cardiovascular disease Heart disease Hypertension Social History Social History Smoking packs per day: 1 Smoking cigarettes per day: 20.0 Years smoked: 20 Smoking pack-years: 20.00 Smoking status: Former smoker Tobacco type: cigarettes Smoking end date: 09/16/15 Alcohol intake: current Drinks per week: 5 Alcohol use details: 4-5/MONTH Substance use: never Substance use type: does not use Living arrangements: with family Gender identity (if verbalized by the patient): Male Spiritual care concerns: No Anes - Eval Final PreProcedure Day of Procedure 10/04/21 16:01 Patient weight: morbidly obese Heart: regular rate and rhythm Lungs: clear to auscultation and normal air movement Airway: Mallamp
[2021-10-05] VITALS (9 sets, daily range): BP systolic 122–153; BP diastolic 65–89; PULSE 81–99; RESP 14–20; TEMP 36.2–36.4; O2SAT 93–98
--- NOTE | ~2021-10-05 | XR_ITS ---
EXAMINATION: XR surgery orthopedic DATE: 10/05/2021 10:59 INDICATION: Left wrist proximal row carpectomy TECHNIQUE: 4 fluoroscopic images of the left wrist and carpus were obtained during procedure performe d by Dr. Ty. Radiologist was not present for the imaging or procedure. The amount of fluoroscopy t francy used during this procedure was 0.3 minutes. COMPARISON: None. FINDINGS: Initial image demonstrates the needle was projecting over the midcarpal joint and subsequen tly the adjacent proximal pole of the scaphoid which appears subtly sclerotic relative to the distal pole and surrounding carpal bones. Subsequent image demonstrates resection of the scaphoid and proxim al/radial aspect of the capitate. Expected postoperative gas at the site of the osteotomy and extendi ng into the adjacent joint spaces. IMPRESSION: 1. Fluoroscopy utilized during resection of the scaphoid and proximal left radial aspect of the capit ate. See procedure note for further detail. Reviewed, dictated and finalized at location A. OSOPHY FACULTY IMPRESSION: 1. Fluoroscopy utilized during resection of the scaphoid and proximal left radi al aspect of the capitate. See procedure note for further detail.
[2021-10-05] MEDS: ACETAMINOPHEN 500 MG TABLET 1000 MG PO (07:39)
[2021-10-05 08:04] LABS: Glucose Point of Care 137 mg/dl (65-105)
[2021-10-05] MEDS: LACTATED RINGERS 1,000 ML 30 ML IV CONT ×2 (08:15→10:58)
[2021-10-05] MEDS: KETOROLAC 15 MG/ML VIAL (*BKC) IV PUSH (08:22)
[2021-10-05] MEDS: ceFAZolin 2 GM/D5W 50 ML 2 GM/50 ML BAG IVPB (08:30)
[2021-10-05] MEDS: BUPIVACAINE HCL 0.5% PF 30 ML VIAL INFILTRATE (09:08)
--- NOTE | 2021-10-05 11:19 | SUR.PHASEI ---
Simple mask removed at 1118.
[2021-10-05 11:26] LABS: Glucose Point of Care 129 mg/dl (65-105)
--- NOTE | 2021-10-05 16:31 | P.OP_ITS ---
Procedure Note - Detailed Date of Procedure 10/06/21 Pre-op Diagnosis Radio-scaphoid osteoarthritis of left wrist. Post-op Diagnosis same Procedure Performed Single bone carpectomy of left wrist. Surgeon Horacio Ty MD Window Glass Cutter Off Ezekiel Anesthesia general Indications Debilitating pain of left wrist do to localized radio-scaphoid osteoarthritis. Findings Same Description of Procedure The left dorsal wrist was marked as the patient waited in the holding area. He was then taken to the operating and placed supine on the operating table. Time- out was held and confirmed. He was given endotracheal anesthesia. The left upper extremity was prepped and draped in the usual fashion. The surgical access site was marked with a pen, the line running longitudinally centered on Ruddy's tubercle. This area was locally infiltrated with 1% lidocaine with epinephrine. The hand and forearm were exsanguinated with an Esmarch bandage and the tourniquet inflated to 250 mmHg. The incision was made and carefully dissected through the subcutaneous tissue to the extensor retinaculum. This was dissected free with blunt dissection from the overlying subcutaneous tissue exposing broadly the extensor retinaculum. The 3rd extensor compartment was incised and the extensor pollicis longus retracted radially. The 4th dorsal compartment was opened longitudinally. The dorsal interosseous nerve was identified and a 1 1/2 cm segmental resection was made. The capsule was further opened as needed. The scaphoid was identified visually. The radial and lateral extent of that confirmed with C-arm images with hypodermic needle orientation. This was removed piecemeal with a rongeur. Care was taken to preserve the radial scaphoid capitate volar ligament. Additional images were made to identif y the capito- lunate interval . As the process of proximal row carpectomy proceeded, images revealed inadvertent removal of a portion of the capitate. This irreversibly changed my plans. The area was reexamined visually and radiographically confirming the lunate and lunate fossa were in satisfactory condition At that point I stepped out to review preoperative x-rays and the patient's history. I placed a call to Dr. Grant at the plastic surgery department at [facility]. Our conversation led to the plan to close this wound and refer the patient to Dr. Grant's clinic next week for further intervention. I was not prepared at this time to perform a fusion alternative. The pt was appraised of this development after he had recovered and prior to discharge. Estimated Blood Loss 10 Drains No Packing No Pathology none sent Complications Other complications (See procedure dictation.) Condition stable Disposition PACU
== END 2021-10-05 13:30 | disposition home or self-care (01) ==
PROVIDERS: PCP Emergency Medicine; Visit Provider Plastic Surgery
PROC: (CPT 25215; principal; 2021-10-05 08:30)
DX: M19.032 Primary osteoarthritis, left wrist (principal); E11.9 Type 2 diabetes mellitus without complications; I10 Essential (primary) hypertension; G47.30 Sleep apnea, unspecified; F41.9 Anxiety disorder, unspecified; K21.9 Gastro-esophageal reflux disease without esophagitis; Z90.49 Acquired absence of other specified parts of digestive tract; Z87.891 Personal history of nicotine dependence; E66.01 Morbid (severe) obesity due to excess calories; Z68.41 Body mass index [BMI] 40.0-44.9, adult; Z79.82 Long term (current) use of aspirin; Z79.51 Long term (current) use of inhaled steroids; Z79.84 Long term (current) use of oral hypoglycemic drugs
CPT/HCPCS: 25210; 82948; A9270; J0690; J1885; J2250; J2405; J2704; J3010; J7120

== ENCOUNTER → 2022-02-09 01:05 | Outpatient (CLI) | payer OTHER, SELFPAY ==
[2022-02-09 13:34] LABS: SARS-CoV-2 RNA PCR Negative
== END ==
PROVIDERS: PCP Emergency Medicine; Visit Provider Emergency Medicine
DX: Z20.822 Contact with and (suspected) exposure to COVID-19 (principal)
CPT/HCPCS: C9803; U0003; U0005

== ENCOUNTER 2022-02-22 07:36 | Outpatient (CLI) | payer OTHER, SELFPAY ==
--- NOTE | ~2022-02-22 | XR_ITS ---
EXAMINATION: XR hip BI wo pelvis DATE: 02/22/2022 07:50 INDICATION: Bilateral hip pain. TECHNIQUE: 2 views of right hip and 2 views of left hip were obtained. COMPARISON: Left hip radiographs 03/28/2017 FINDINGS: Bone alignment is normal. No fracture. There is mild left hip osteoarthritis. Right hip denise nt space is normal. IMPRESSION: 1. Mild left hip osteoarthritis. Reviewed, dictated and finalized at location A.
== END 2022-02-22 07:37 | disposition home or self-care (01) ==
PROVIDERS: PCP Emergency Medicine; Visit Provider Emergency Medicine
DX: M16.12 Unilateral primary osteoarthritis, left hip (principal)
CPT/HCPCS: 73521

== ENCOUNTER 2022-04-16 08:32 | Outpatient (CLI) | payer OTHER, SELFPAY ==
--- NOTE | ~2022-04-16 | XR_ITS ---
XR chest 2V DATE: 04/16/2022 09:05 INDICATION: Abnormal lung field finding. COPD. TECHNIQUE: PA and lateral views COMPARISON: 09/04/2011 2 view chest 07/03/2021 CT chest FINDINGS: Approximately 3.3 cm cavitary lesion is suggested in the left upper lobe. Prominent bullous emphysema and fibrotic change of the lungs. No pleural effusion or pulmonary vascular congestion or pneumothorax. Normal heart size. IMPRESSION: Bullous emphysema and chronic fibrotic changes 3.3 cm cavitary lesion of left upper lobe is suggested Reviewed, dictated and finalized at location B.
== END 2022-04-16 08:33 | disposition home or self-care (01) ==
LOC: ANHIMG 08:42
PROVIDERS: PCP Emergency Medicine; Visit Provider Emergency Medicine
DX: R91.8 Other nonspecific abnormal finding of lung field (principal); J43.8 Other emphysema
CPT/HCPCS: 71046

== ENCOUNTER 2022-05-07 09:12 | Outpatient (CLI) | payer OTHER, SELFPAY ==
--- NOTE | ~2022-05-07 | CT_ITS ---
EXAMINATION:CT diagnostic chest wo con DATE: 05/07/2022 09:35 INDICATION: Left upper lobe pulmonary nodule. TECHNIQUE: Computed tomography (CT) of the chest was performed without intravenous contrast. Automate d exposure control and iterative reconstruction technique were employed. The dose-length product (DLP ) was 384.24 mGy-cm. COMPARISON: Chest CT 07/03/2021, chest 2 views 04/16/2022 FINDINGS: There is moderate emphysema. There is a stable 5 mm nodule in right middle lobe, likely viktoriya ign. There is a 3.4 x 2.0 cm thick-walled cavitary mass in left upper lobe that measured 5.7 x 5.4 cm on 07/03/2021. No pleural effusion. There is a staple line in right upper lobe. The heart size is no rmal. There are coronary artery calcifications. No pericardial effusion. There is bilateral gynecomas tia. There is stable mild mediastinal lymphadenopathy, likely reactive. For example, a prevascular no de measures 15 x 11 mm. There is severe thoracic spondylosis. IMPRESSION: 1. Cavitary mass in left lung upper lobe with improvement from 07/03/2021, most likely infection. 2. Moderate emphysema. 3. Chronic mild mediastinal lymphadenopathy, likely reactive. Reviewed, dictated and finalized at location A.
== END 2022-05-07 09:13 | disposition home or self-care (01) ==
PROVIDERS: PCP Emergency Medicine; Visit Provider Nurse Practitioner Family
DX: R91.8 Other nonspecific abnormal finding of lung field (principal); J43.9 Emphysema, unspecified
CPT/HCPCS: 71250

== ENCOUNTER 2022-09-04 10:34 | Outpatient (CLI) | payer OTHER, SELFPAY ==
--- NOTE | ~2022-09-04 | XR_ITS ---
Clinical Indication: Cough PA and lateral views of the chest: Comparison: 04/16/2022 Findings: Extensive chronic interstitial disease in the lungs is similar to prior exam. Suspected cav itary lesion left upper lobe, probably unchanged.. Cardiomediastinal silhouette is within normal anderson its. Bones and soft tissues are unremarkable. Impression: Left upper lobe cavitary lesion, probably unchanged from most recent prior exam. Stable chronic interstitial disease in the lungs. Reviewed, dictated and finalized at location M. OLOGY TECHNOLOGIST Impression: Left upper lobe cavitary lesion, probably unchanged from most recent prior exam . Stable chronic interstitial disease in the lungs.
== END 2022-09-04 10:35 | disposition home or self-care (01) ==
LOC: ANHIMG 10:39
PROVIDERS: PCP Emergency Medicine; Visit Provider Emergency Medicine
DX: R05.9 Cough, unspecified (principal)
CPT/HCPCS: 71046

== ENCOUNTER 2022-11-07 08:01 | Outpatient (CLI) | payer OTHER, SELFPAY ==
--- NOTE | ~2022-11-07 | CT_ITS ---
CT Scan of the Chest without Contrast: Clinical Indication: Pulmonary nodules Technique: Contiguous sections were acquired throughout the chest without intravenous contrast. Dose reduction technique was used on this scan by utilizing automated exposure control and iterative recon struction technique. The dose-length product (DLP) was 532.27 mGy-cm. COMPARISON: 05/07/2022, 09/01/2020 Findings: There is no evidence of any significant mediastinal, hilar or axillary lymphadenopathy. Coronary arlene ry calcifications are present. No aortic aneurysm. There is no evidence of pleural or pericardial effusion. Advanced emphysema is present, especially the upper lobes, similar to prior exams. Cavitary lesion in the left upper lobe is decreased since 05/07/2022, now measuring approximately 2.6 x 1.9 cm in extent . Stable 5 mm pleural-based nodule at the right middle lobe. Images through the upper abdomen reveal no abnormalities. Impression: Continued interval decrease in size of cavitary lesion in the left upper lobe, which now measures 2.6 x 1.9 cm. Stable 5 mm right middle lobe pulmonary nodule. Advanced emphysema. Reviewed, dictated and finalized at [facility]. CTOR OF MATH Impression: Continued interval decrease in size of cavitary lesion in the left upper lobe, which now measures 2.6 x 1.9 cm. Stable 5 mm right middle lobe pulmonary nodule. Advanced emphysema.
== END 2022-11-07 08:02 | disposition home or self-care (01) ==
LOC: ANHIMG 08:03
PROVIDERS: PCP Emergency Medicine; Visit Provider Nurse Practitioner Family
DX: R91.8 Other nonspecific abnormal finding of lung field (principal); J43.9 Emphysema, unspecified
CPT/HCPCS: 71250

== ENCOUNTER 2023-02-20 08:26 | Outpatient (CLI) | payer OTHER, SELFPAY ==
[2023-02-20 08:37] LABS: Basophils Absolute Auto 0.1 K/mm3 (0.0-0.1); Basophils Percent Auto 0.9 % (0.2-1.2); Eosinophils Absolute Auto 0.4 K/mm3 (0-0.3); Eosinophils Percent Auto 4.1 % (0-4.4); Hemoglobin 14.3 g/dL (14.0-18.0); Immature Granulocyte Absolute 0.07 K/mm3 (0.00-0.031); Immature Granulocyte Percent A 0.7 % (0-0.5); Lymphocytes Absolute Auto 2.48 K/mm3 (0.9-3.2); Lymphocytes Percent Auto 23.1 % (18.3-44.2); Mean Corpuscular Volume 90.9 fl (80-100); Mean Platelet Volume 8.5 fl (7.4-10.4); Monocytes Absolute Auto 0.7 K/mm3 (0.1-0.6); Monocytes Percent Auto 6.6 % (2.6-8.5); Neutrophils Absolute Auto 6.9 K/mm3 (1.3-6.7); Neutrophils Percent Auto 64.6 % (45.5-73.1); Platelet Count Result 349 k/mm3 (150-375); Red Blood Count 4.62 M/mm3 (4.6-6.20); Red Cell Distribution Width 13.5 % (11.5-14.5); White Blood Count 10.7 K/mm3 (4.5-10.0)
[2023-02-20 09:28] LABS: Iron 65 ug/dL (49-181)
[2023-02-20 09:37] LABS: Alanine Aminotransferase 34 U/L (6-50); Albumin Level 4.3 g/dL (3.5-5.1); Alkaline Phosphatase 111 U/L (38-126); Anion Gap 10 mmol/L (8-16); Aspartate Amino Transferase 24 U/L (17-59); Bilirubin,Total 0.3 mg/dL (0.2-1.3); Blood Urea Nitrogen 8 mg/dL (9-20); Calcium 8.5 mg/dL (8.4-10.2); Carbon Dioxide 23 mmol/L (22-30); Chloride 103 mmol/L (98-107); Estimated Glomerular Filt Rate > 60; Glucose 109 mg/dL (65-110); Potassium 4.5 mmol/L (3.4-5.0); Sodium 136 mmol/L (137-145)
[2023-02-20 09:41] LABS: Percent Iron Saturation 17 % (20-50)
[2023-02-26 11:44] LABS: CALR Exon 9 Mutation Not Detected (Not Detected); CSF3R Exon 14/17 Mutation Not Detected (Not Detected); JAK2 Exon 12 Mutation Not Detected (Not Detected); JAK2 V617F Mutation Not Detected (Not Detected); MPL Exon 10 Mutation Not Detected (Not Detected); Specimen Source Blood
== END 2023-02-20 08:27 | disposition home or self-care (01) ==
PROVIDERS: PCP Emergency Medicine; Visit Provider Internal Medicine Hematology & Oncology
DX: D47.3 Essential (hemorrhagic) thrombocythemia (principal)
CPT/HCPCS: 36415; 80053; 81219; 81270; 81279; 81339; 81479; 82728; 83540; 83550; 85025; 86140

== ENCOUNTER 2023-06-26 11:33 | Outpatient (CLI) | payer OTHER, SELFPAY ==
--- NOTE | ~2023-06-26 | XR_ITS ---
Right foot Technique: AP, oblique, and lateral views were obtained. Clinical History: Pain and swelling Findings: No acute fracture or dislocation is seen. Osseous alignment is anatomic. There is moderate degenerative change at the first MTP joint. Soft tissues are unremarkable. Impression: Moderate degenerative change the first MTP joint. Reviewed, dictated and finalized at [facility]. Impression: Moderate degenerative change the first MTP joint.
== END 2023-06-26 11:34 | disposition home or self-care (01) ==
PROVIDERS: PCP Emergency Medicine; Visit Provider Emergency Medicine
DX: M19.071 Primary osteoarthritis, right ankle and foot (principal)
CPT/HCPCS: 73630

== ENCOUNTER 2023-07-12 07:12 | Outpatient (CLI) | payer OTHER, SELFPAY ==
--- NOTE | ~2023-07-12 | US_ITS ---
US abdomen limited INDICATION: Right upper abdominal pain PROCEDURE: Realtime right upper abdominal ultrasound. COMPARISON: Ultrasound dated 06/10/2019 FINDINGS: The pancreas is normal without focal mass or pancreatic ductal dilation. Liver echotexture is increased, consistent with fatty infiltration. There is normal directional flow in the portal ve in. There are gallstones. Common bile duct measures 3 mm. IMPRESSION: 1: Cholelithiasis. 2: Fatty infiltration of the liver. Reviewed, dictated and finalized at location B.
== END 2023-07-12 07:13 | disposition home or self-care (01) ==
PROVIDERS: PCP Emergency Medicine; Visit Provider Emergency Medicine
DX: R10.11 Right upper quadrant pain (principal); M79.671 Pain in right foot; K80.20 Calculus of gallbladder without cholecystitis without obstruction; K76.0 Fatty (change of) liver, not elsewhere classified
CPT/HCPCS: 76705

== ENCOUNTER 2023-08-26 10:46 | Outpatient (CLI) | payer OTHER, SELFPAY ==
[2023-08-26 11:09] LABS: Basophils Absolute Auto 0.1 K/mm3 (0.0-0.1); Basophils Percent Auto 0.9 % (0.2-1.2); Eosinophils Absolute Auto 0.3 K/mm3 (0-0.3); Eosinophils Percent Auto 2.2 % (0-4.4); Hemoglobin 13.6 g/dL (14.0-18.0); Immature Granulocyte Absolute 0.09 K/mm3 (0.00-0.031); Immature Granulocyte Percent A 0.8 % (0-0.5); Lymphocytes Absolute Auto 1.68 K/mm3 (0.9-3.2); Lymphocytes Percent Auto 14.9 % (18.3-44.2); Mean Corpuscular Hemoglobin 31.2 pg (26-34); Mean Corpuscular Volume 91.7 fl (80-100); Mean Platelet Volume 8.4 fl (7.4-10.4); Monocytes Absolute Auto 0.7 K/mm3 (0.1-0.6); Monocytes Percent Auto 5.8 % (2.6-8.5); Neutrophils Absolute Auto 8.5 K/mm3 (1.3-6.7); Neutrophils Percent Auto 75.4 % (45.5-73.1); Platelet Count Result 348 k/mm3 (150-375); Red Blood Count 4.36 M/mm3 (4.6-6.20); Red Cell Distribution Width 12.8 % (11.5-14.5); White Blood Count 11.3 K/mm3 (4.5-10.0)
== END 2023-08-26 10:47 | disposition home or self-care (01) ==
PROVIDERS: PCP Emergency Medicine; Visit Provider Internal Medicine Hematology & Oncology
DX: D47.3 Essential (hemorrhagic) thrombocythemia (principal)
CPT/HCPCS: 36415; 85025

== ENCOUNTER 2023-10-28 09:23 | Outpatient (CLI) | payer OTHER, SELFPAY ==
--- NOTE | ~2023-10-28 | CT_ITS ---
CT Scan of the Chest without Contrast: Clinical Indication: Pulmonary nodules Technique: Contiguous sections were acquired throughout the chest without intravenous contrast. Dose reduction technique was used on this scan by utilizing automated exposure control and iterative recon struction technique. The dose-length product (DLP) was 460.23 mGy-cm. COMPARISON: 11/07/2022 Findings: There is no evidence of any significant mediastinal, hilar or axillary lymphadenopathy. Coronary calc ification are present. There is no evidence of pleural or pericardial effusion. Severe emphysema present. Spiculated lesion with focal central cavitation left upper lobe is mildly d ecreased from prior exam, measuring up to approximately 2 cm in diameter currently. There are multipl e subcentimeter groundglass opacities/nodules at the left lung base, suggestive of small airways infe ctious process. Images through the upper abdomen reveal no abnormalities. Impression: Continued interval decrease of spiculated cavitary lesion in the left upper lobe, now measuring appro ximately 2 cm in overall maximum diameter. Subcentimeter groundglass nodules at the left lung base, suggestive a small areas infectious process. Advanced emphysema. Reviewed, dictated and finalized at location . E MILL MILL HAND Impression: Continued interval decrease of spiculated cavitary lesion in the left upper lob e, now measuring approximately 2 cm in overall maximum diameter. Subcentimeter groundglass nodules at the left lung base, suggestive a small are as infectious process. Advanced emphysema.
== END 2023-10-28 09:24 | disposition home or self-care (01) ==
LOC: ANHIMG 09:25
PROVIDERS: PCP Emergency Medicine; Visit Provider Nurse Practitioner Family
DX: R91.8 Other nonspecific abnormal finding of lung field (principal); J43.9 Emphysema, unspecified
CPT/HCPCS: 71250

== ENCOUNTER 2024-01-08 00:29 | Day surgery (SDC) | payer OTHER, SELFPAY ==
[2023-12-27 09:44] VITALS: BMI 40.4
[2024-01-08 11:42] VITALS: BP 147/82; PULSE 103; RESP 20; TEMP 36.5; O2SAT 95
[2024-01-08] MEDS: LACTATED RINGERS 1,000 ML 150 ML IV CONT (11:47)
--- NOTE | 2024-01-08 12:11 | WPDANESEPPF ---
Anes - Initial Pre Proc Eval Procedure: Operation Date: 01/08/24 13:00 Proposed Procedures p Esophagogastroduodenoscopy - Maulik Quiñones MD Date/Time: 01/08/24 12:11 Surgeon: Maulik Quiñones MD Pre Op Diagnosis: Julian's Esophagus Patient Data Age: 63 Gender: M Height: 1.68 m Weight: 125.9 kg Last Vital Signs Temp 97.7 F 01/08/24 11:42 Pulse 103 H 01/08/24 11:42 Resp 20 01/08/24 11:42 BP 147/82 H 01/08/24 11:42 Pulse Ox 95 01/08/24 11:42 O2 Del Method Room Air 01/08/24 11:42 Allergies Allergy/AdvReac Type Severity Reaction Status Date / Time No Known Allergies Allergy Verified 01/08/24 11:41 Home Medications Medication Instructions Recorded Confirmed Type aspirin 81 mg tablet,delayed 81 mg PO DAILY 11/13/19 12/27/23 History release bupropion HCl 150 mg 24 hr tablet, 150 mg PO QAM 11/13/19 12/27/23 History extended release diltiazem HCl 360 mg 360 mg PO DAILY 11/13/19 12/27/23 History capsule,extended release 24 hr losartan 100 mg tablet 100 mg PO DAILY 11/13/19 12/27/23 History spironolactone 50 mg tablet 50 mg PO DAILY 11/13/19 12/27/23 History (Aldactone) tamsulosin 0.4 mg capsule 0.4 mg PO DAILY 11/13/19 12/27/23 History omeprazole 40 mg capsule,delayed 40 mg PO DAILY 01/14/20 12/27/23 History release ipratropium 0.5 mg-albuterol 3 mg 3 ml inhalation QID PRN shortness 07/29/20 12/27/23 Rx (2.5 mg base)/3 mL nebulization of breath or wheezing #360 mL soln mometasone-formoterol HFA 200 2 puff inhalation BID #13 grams 07/29/20 12/27/23 Rx mcg-5 mcg/actuation aerosol inhaler (Dulera) tiotropium bromide 18 mcg capsule 1 cap inhalation DAILY #30 caps 01/04/21 12/27/23 Rx with inhalation device (Spiriva with HandiHaler) metformin 500 mg tablet 500 mg PO BID 02/07/21 12/27/23 History Ventolin HFA 90 mcg/actuation See Rx Instructions .Route 06/28/21 12/27/23 Rx aerosol inhaler (albuterol sulfate) .COMPLEX #18 grams multivitamin 1 tablet PO DAILY 09/29/21 12/27/23 History fluticasone propionate 50 1 spray intranasal BID PRN nasal 10/14/23 12/27/23 Rx mcg/actuation nasal congestion #18.2 mL spray,suspension simvastatin 20 mg tablet 20 mg PO DAILY 12/27/23 12/27/23 History Patient hx anesthesia problems: none Family hx anesthesia problems: none Results Review: All pre-operative results and documents have been reviewed as part of the pre-operative evaluation. [facility] Past Medical History Medical History (Updated 07/24/23 @ 08:30 by Trey Flores MD) Anxiety Arthritis Arthritis of knee, degenerative Julian's esophagus Bilateral knee pain BMI greater than 40 Collapsed lung Diabetes type 2, controlled Emphysema of lung Fracture of ankle (11/11/19) GERD (gastroesophageal reflux disease) Hallux rigidus of right foot Hepatomegaly Hypertension Hypoxemia Knee joint effusion Left knee DJD Lung nodules Maisonneuve fracture of right lower extremity Morbid obesity with BMI of 40.0-44.9, adult Pneumonia Pneumothorax Right knee DJD Shortness of breath Sleep apnea Smoking Traumatic hyphema of left eye Weight gain Surgical History Surgical History S/P partial colectomy Family History Family History Father Cerebrovascular accident Family history of diabetes mellitus in first degree relative Family history of malignant neoplasm Mother Family history of arthritis Other Arthritis Diabetes mellitus Family history of allergic disorder Family history of cardiovascular disease Heart disease Hypertension Social History Social History Years smoked: 20 Smoking status: Current some day smoker Tobacco type: cigarettes and cigars Smoking end date: 09/16/15 Alcohol intake: current Substance use: never Substance use
[2024-01-08 12:14] LABS: Glucose Point of Care 128 mg/dl (65-105)
--- NOTE | 2024-01-08 13:30 | PM.HPGS ---
History of Present Illness History of Present Illness Consent: Risks, benefits, and alternatives have been discussed and questions answered. Patient agrees to proceed with procedure. 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, on omeprazole daily Review of Systems Review of Systems: All systems reviewed & are unremarkable except as noted in HPI and below PMFSH Past Medical History Medical History (Updated 07/24/23 @ 08:30 by Trey Flores MD) Anxiety Arthritis Arthritis of knee, degenerative Solomon's esophagus Bilateral knee pain BMI greater than 40 Collapsed lung Diabetes type 2, controlled Emphysema of lung Fracture of ankle (11/11/19) GERD (gastroesophageal reflux disease) Hallux rigidus of right foot Hepatomegaly Hypertension Hypoxemia Knee joint effusion Left knee DJD Lung nodules Maisonneuve fracture of right lower extremity Morbid obesity with BMI of 40.0-44.9, adult Pneumonia Pneumothorax Right knee DJD Shortness of breath Sleep apnea Smoking Traumatic hyphema of left eye Weight gain Surgical History Surgical History S/P partial colectomy Family History Family History Father Cerebrovascular accident Family history of diabetes mellitus in first degree relative Family history of malignant neoplasm Mother Family history of arthritis Other Arthritis Diabetes mellitus Family history of allergic disorder Family history of cardiovascular disease Heart disease Hypertension Social History Social History Years smoked: 20 Smoking status: Current some day smoker Tobacco type: cigarettes and cigars Smoking end date: 09/16/15 Alcohol intake: current Substance use: never Substance use type: does not use Lack of Transportation: No Lack of Food: Never True Current Housing: I Have Housing Concerned About Future Housing: No Difficulty Paying Gas/Electric Bills: YES Difficulty Paying for Meds: No Currently Unemployed: No Education: High School Diploma/GED Difficulty w/ Childcare or Family Care: No Living arrangements: with family Gender identity (if verbalized by the patient): Male Spiritual care concerns: No Meds Home Medications and Allergies Home Medications Medication Instructions Recorded Confirmed Type aspirin 81 mg tablet,delayed 81 mg PO DAILY 11/13/19 12/27/23 History release bupropion HCl 150 mg 24 hr tablet, 150 mg PO QAM 11/13/19 12/27/23 History extended release diltiazem HCl 360 mg 360 mg PO DAILY 11/13/19 12/27/23 History capsule,extended release 24 hr losartan 100 mg tablet 100 mg PO DAILY 11/13/19 12/27/23 History spironolactone 50 mg tablet 50 mg PO DAILY 11/13/19 12/27/23 History (Aldactone) tamsulosin 0.4 mg capsule 0.4 mg PO DAILY 11/13/19 12/27/23 History omeprazole 40 mg capsule,delayed 40 mg PO DAILY 01/14/20 12/27/23 History release ipratropium 0.5 mg-albuterol 3 mg 3 ml inhalation QID PRN shortness 07/29/20 12/27/23 Rx (2.5 mg base)/3 mL nebulization of breath or wheezing #360 mL soln mometasone-formoterol HFA 200 2 puff inhalation BID #13 grams 07/29/20 12/27/23 Rx mcg-5 mcg/actuation aerosol inhaler (Dulera) tiotropium bromide 18 mcg capsule 1 cap inhalation DAILY #30 caps 01/04/21 12/27/23 Rx with inhalation device (Spiriva with HandiHaler) metformin 500 mg tablet 500 mg PO BID 02/07/21 12/27/23 History Ventolin HFA 90 mcg/actuation See Rx Instructions .Route 06/28/21 12/27/23 Rx aerosol inhaler (albuterol sulfate) .COMPLEX #18 grams multivitamin 1 tablet PO DAILY 09/29/21 12/27/23 History fluticasone propionate 50 1 spray intranasal BID PRN nasal 10/14/23 12/27/23 Rx mcg/actuation nasal congestion #18.2 mL spray,suspension
[2024-01-08 13:48] VITALS: BP 116/69; PULSE 100; RESP 19; O2SAT 96
[2024-01-08 13:58] VITALS: BP 122/74; PULSE 94; RESP 24; O2SAT 96
[2024-01-08 14:08] VITALS: BP 123/84; PULSE 93; RESP 18; O2SAT 96
== END 2024-01-08 14:14 | disposition home or self-care (01) ==
PROVIDERS: PCP Emergency Medicine; Visit Provider Internal Medicine Gastroenterology
PROC: 0DJ08ZZ Inspection of Upper Intestinal Tract, Via Natural or Artificial Opening Endoscopic (ICD-10-PCS; CPT 43235; principal; 2024-01-08 13:00)
DX: K22.70 Barrett's esophagus without dysplasia (principal); K44.9 Diaphragmatic hernia without obstruction or gangrene; K21.00 Gastro-esophageal reflux disease with esophagitis, without bleeding; E11.9 Type 2 diabetes mellitus without complications; J43.9 Emphysema, unspecified; K21.9 Gastro-esophageal reflux disease without esophagitis; I10 Essential (primary) hypertension; E66.01 Morbid (severe) obesity due to excess calories; Z68.41 Body mass index [BMI] 40.0-44.9, adult; Z79.82 Long term (current) use of aspirin; Z79.51 Long term (current) use of inhaled steroids; Z90.49 Acquired absence of other specified parts of digestive tract; Z87.891 Personal history of nicotine dependence
CPT/HCPCS: 43239; 82948; 88305; J2704; J7120

== ENCOUNTER 2024-11-23 00:58 | Day surgery (SDC) | payer OTHER, SELFPAY ==
[2024-11-12 14:09] VITALS: BMI 42.0
--- OUTSIDE RECORDS SUMMARY | 2024-11-23 01:01 | XMS_ITS | Referral Summary ---
Author Organization [email or web address] Address [address] [place] [address] Care Team Providers Care Thermo Processor Name Role Phone Mesfin Mitchell MD Primary Care Provider Source Comments [email or web address],non-owned Affiliates and Associated Physician Practices is amultiple site organization consisting of ambulatory clinics and hospital sitesin [place], [place], [place] and [place]. This disclosure is being madepursuant to the Care Everywhere program and may not contain all information available regarding this patient. Last updated [employer] [email or web address] Allergies No known active allergies Medications * Be aware that medications may not be up to date on this document. Alwaysverify current medications with the patient. Medication Sig Dispensed Refills Start Date End Date Status buPROPion XL 24hr (WELLBUTRIN-XL) 150 MG tablet 02/12/2018 Active fluticasone propionate (FLONASE) 50 MCG/ACT nasal spray 02/12/2018 Active losartan-hydroCHLOROt hiazide (HYZAAR) 100-25 MG tablet 02/12/2018 Active spironolactone (ALDACTONE) 50 MG tablet Take 50 mg by mouth once daily 01/24/2018 Active tamsulosin (FLOMAX) 0.4 MG capsule Take 0.4 mg by mouth once daily 01/22/2018 Active aspirin EC (ECOTRIN) 81 MG tablet Take 81 mg by mouth once daily Active Omeprazole (PRILOSEC PO) Take 40 mg by mouth as directed Active metFORMIN (GLUCOPHAGE) 500 MG tablet Take 500 mg by mouth 2 times daily with morning and evening meal Active dilTIAZem coated beads 24hr (DILTIAZEM CD) 240 MG capsule Take 240 mg by mouth once daily Active dilTIAZem coated beads 24hr (DILTIAZEM CD) 120 MG capsule Take 120 mg by mouth once daily Do not crush or chew. Active simvastatin (ZOCOR) 20 MG tablet Take 20 mg by mouth at bedtime Active tiotropium (SPIRIVA HANDIHALER) 18 MCG inhalation capsule Inhale 1 capsule by mouth once daily Active mometasone-formoterol (DULERA) 200-5 MCG/ACT inhaler Inhale 1 puff by mouth once daily Active ALBUTEROL IN Inhale by mouth as needed Active Oxygen Use as directed 2l/min as needed for SOB Active Active Problems No known active problems Social History Tobacco Use Types Packs/Day Years Used Date Smoking Tobacco: Former Cigarettes 0.5 25 0 01/27/1993 - 01/27/2018 Smokeless Tobacco: Never Tobacco Cessation:Counseling Given: No Alcohol Use Standard Drinks/Week Comments Yes 1 (1 standard drink = 0.6 oz pur e alcohol) 1 - 2 cans per week Sex and Gender Information Value Date Recorded Sex Assigned at Not on file Gender Identity Not on file Sexual Orientation Not on file Last Filed Vital Signs Vital Sign Reading Time Taken Comments Blood Pressure 133/80 07/06/2021 10:56 AM CDT Pulse 104 07/06/2021 10:56 AM CDT Temperature 36.8 C (98.3 F) 03/28/2018 12:45 PM CDT Respiratory Rate 16 07/06/2021 10:5 6 AM CDT Oxygen Saturation 98% 03/28/2018 3:14 PM CDT Inhaled Oxygen Concentration - - Weight 119.5 kg (263 lb 6.4 oz) 03/21/2023 9:01 AM CDT Height 168.9 cm (5' 6.5 ) 03/21/2023 9:01 AM CDT Body Mass Index 41.88 03/21/2023 9:01 AM CDT Plan of Treatment Not on file Care Teams Thermo Processor Relationship Specialty Start Date End Date Mesfin Mitchell MD [address] [place] [address] PCP - General 04/03/17
--- OUTSIDE RECORDS SUMMARY | 2024-11-23 01:01 | XMS_ITS | Referral Summary ---
Author Organization [facility] Address [address] [place] [address] Care Team Providers Care Broaching Machine Operator Name Role Phone Mesfin Mitchell MD Primary Care Provider [phone] Mesfin Mitchell MD Unavailable Allergies No known active allergies Medications ipratropium-albut lorraine (DUO-NEB) 0.5-2.5 mg/3 mL nebulizer solutionIndicatio ns:Chronic Obstructive Pulmonary Disease with Bronchospasms Take 3 mL by nebulization every morning Active losartan-hydrochl orothiazide (HYZAAR) 100-25 mg per tabletIndications :hypertension Take 1 tablet by mouth daily Active buPROPion XL (WELLBUTRIN XL) 150 mg 24 hr tabletIndications :Anxiety with Depression Take 150 mg by mouth every morning Active tamsulosin (FLOMAX) 0.4 mg capsule,extended release 24hrIndications:b enign prostatic hyperplasia with lower urinary tract sx Take 0.4 mg by mouth every morning Active dilTIAZem CD (CARDIZEM CD) 300 mg 24 hr capsuleIndication s:Ventricular Tachycardia Take 300 mg by mouth every morning Active albuterol (PROAIR RESPICLICK) 90 mcg/actuation inhalerIndication s:Chronic Obstructive Pulmonary Disease Inhale 2 puffs every morning Active omeprazole (PriLOSEC) 10 mg capsuleIndication s:Stress Ulcer Prophylaxis Take 40 mg by mouth every morning Active oxygenIndications :Dyspnea 2 L/min by Not Applicable route as needed Active amLODIPine (NORVASC) 10 mg tabletIndications :hypertension Take 10 mg by mouth every morning Active aspirin 81 mg enteric coated tabletIndications :prevention of thrombosis Take 81 mg by mouth every morning 09/16/18 70 Active cefuroxime (CEFTIN) 250 mg tabletIndications :COPD Exacerbation Take 250 mg by mouth every morning Active diclofenac DR (VOLTAREN) 75 mg EC tabletIndications :Osteoarthritis Take 75 mg by mouth every morning Active influenza quadrivalent [id number] (FLUZONE) 60 mcg (15 mcg x 4)/0.5 mL syringe Fluzone Quad (PF) 60 mcg(15 mcgx4)/0.5 mL intramuscular syringe Active fluticasone propionate (FLONASE) 50 mcg/actuation nasal sprayIndications: Allergic Rhinitis Administer 1 spray into each nostril as needed 02/13/20 18 Active metFORMIN (GLUCOPHAGE) 500 mg tabletIndications :type 2 diabetes mellitus Take 500 mg by mouth 2 (two) times a day 09/16/18 70 Active mometasone-formot lorraine (DULERA 200) 200-5 mcg/actuation inhalerIndication s:Bronchospasm Prevention with COPD Inhale 1 puff every morning Active raNITIdine (ZANTAC) 150 mg tablet ranitidine 150 mg tablet Active simvastatin (ZOCOR) 20 mg tabletIndications :hyperlipidemia Take 20 mg by mouth every morning Active spironolactone (ALDACTONE) 25 mg tabletIndications :hypertension Take 25 mg by mouth every morning Active acetaminophen (TYLENOL) 500 mg tabletIndications :Pain Take 2 tablets (1,000 mg total) by mouth every 6 (six) hours as needed for pain 30 tablet 10/26/19 22 Active oxyCODONE (ROXICODONE) 5 mg immediate release tabletIndications :Pain Take 1 tablet (5 mg total) by mouth every 4 (four) hours as needed for pain for up to 12 doses 12 tablet 10/26/19 22 Active Additional Information Patient not taking.Reported on 02/26/2022 ibuprofen (ADVIL,MOTRIN) 600 mg tabletIndications :Pain Take 1 tablet (600 mg total) by mouth every 6 (six) hours as needed for pain 20 tablet 10/26/19 22 Active ergocalciferol (VITAMIN D) 50,000 unit capsule Take 50,000 Units by mouth once a week 08/01/20 21 Active losartan (COZAAR) 100 mg tablet Take 100 mg by mouth daily 12/06/19 Active traMADoL (ULTRAM) 50 mg tablet 12/27/19 Active dilTIAZem CD 240 mg 24 hr capsule ONE CAPSULE DAILY ( ALONG WITH ONE 120MG CAPSULE FOR TOTAL DOSE OF 360 MG) 12/20/19 Active dilTIAZem CD 120 mg 24 hr capsule 01/23/20 Active omeprazole (PriLOSEC) 40 mg capsule Take 40 mg by mouth daily 01/17/20 Active spironolactone (ALDACTONE) 50 mg tablet Take 50 mg by mouth daily 12/20/19 Active Hospital, Clinic, or Other Facility Administered Medication Ordered Dose Route Frequency Start Date End Date Status triamcinolone (KENALOG) 40 mg/mL injection 40 mgIndications:Primary osteoarthritis of left knee 40 mg intra-artic 06/05/2017 Active Active Problems Problem Noted Date Diagnosed Date Arthritis of left wrist 10/11/2021 Overview (10/11/2021): Added automatically from request for surgery [id number] Arthritis 10/11/2021 Hand injuries 10/11/2021 Diabetes mellitus, type II 01/06/2021 Arm pain, left 12/17/2019 Osteoarthritis of left knee 06/05/2017 Chronic midline low back pain without sciatica 0 06/05/2017 Right foot pain 06/05/2017 Joint pain 05/14/2017 Cardiovascular symptoms 02/01/2017 Chest pain 02/01/2017 Chronic obstructive pulmonary disease 02/01/2017 Gastroesophageal reflux disease 02/01/2017 Hypertension 02/01/2017 Nicotine dependence, unspecified, uncomplicated 02/01/2017 Sleep apnea 02/01/2017 Immunizations Immunization Administration Dates Next Due Influenza, Quadrivalent, Spl it, Preservative Free, Intramuscular 10/24/2019,08/26/2018,11/25/2015 Tdap 04/09/2020 Social History Tobacco Use Types Packs/Day Years Used Date Smoking Tobacco: Former Cigarettes Q uit: 2019 Smokeless Tobacco: Never Tobacco Cessation:Counseling Given: No Alcohol Use Standard Drinks/Week Comments No 0 (1 standard drink = 0.6 oz pur e alcohol) AUDIT-C Answer Date Recorded Q1: How often do you have a drink containing alc ohol? Monthly or less 10/13/2021 Q2: How many drinks containi ng alcohol do you have on a typical day when you are drinking? 1 or 2 10/13/2021 Q3: How often do you have si x or more drinks on one occasion? Never 10/13/2021 Sex and Gender Information Value Date Recorded Sex Assigned at Not on file Legal Sex Male 3:55 AM ORGANIZATIONAL DEVELOPMENT DIRECTOR Gender Identity Not on file Sexual Orientation Not on file Last Filed Vital Signs Vital Sign Reading Time Taken Comments Blood Pressure 101/57 10/26/2021 6:00 PM ORGANIZATIONAL DEVELOPMENT DIRECTOR Pulse 90 10/26/2021 6:00 PM ORGANIZATIONAL DEVELOPMENT DIRECTOR Temperature 36.5 C (97.7 F) 09/05/2017 9:43 AM ORGANIZATIONAL DEVELOPMENT DIRECTOR Respiratory Rate 17 10/26/2021 6:00 PM ORGANIZATIONAL DEVELOPMENT DIRECTOR Oxygen Saturation 98% 10/26/2021 6:00 PM ORGANIZATIONAL DEVELOPMENT DIRECTOR Inhaled Oxygen Concentration - - Weight 122.2 kg (269 lb 6.4 oz) 02/26/2022 1:12 PM CDT Height 167.6 cm (5' 6 ) 02/26/2022 1:12 PM CDT Body Mass Index 43.48 02/26/2022 1:12 PM CDT Plan of Treatment Not on file Medical Devices Implanted Type Area Classroom Coordinator Device Identifier Shelf Expiration Date Model / Serial / Lot Synthes 02.110.152 Lcp 112mm Fusion Wrist Straight Plate Bone Stainless Steel - [id number] Implanted:Qty: 1 on 10/26/2021 by Rowdy Grant MD at [facility] Plate Left: Wrist Synthes I 02.110.152 / / Synthes 202.872 2.7mm 5mm 12mm 2.5mm Self Tap Stardrive Cortical T8 Screw Bone - [id number] Implanted:Qty: 1 on 10/26/2021 by Rowdy Grant MD at [facility] [employer] [facility] Screw Left: Wrist Synthes I 202.872 / / Synthes 202.220 2.7mm 2.1mm 20mm Self Tap Lock Stardrive Thread Head Profile T8 - [id number] Implanted:Qty: 1 on 10/26/2021 by Rowdy Grant MD at [facility] [employer] Screw Left: Wrist Synthes I 202.220 / / Synthes 202.216 2.7mm 2.1mm 16mm Self Tap Lock Stardrive Thread Head Profile T8 - [id number] Implanted:Qty: 1 on 10/26/2021 by Rowdy Grant MD at [facility] Screw Left: Wrist Synthes I 202.216 / / Synthes 212.104 3.5mm 2.9mm 16mm Self Tap Lock Stardrive Conical Head T15 Full - [id number] Implanted:Qty: 2 on 10/26/2021 by Rowdy Grant MD at [facility] Screw Left: Wrist Synthes I 212.104 / / Synthes 02.200.018 3.5mm 6mm 18mm Self Tap Low Profile Stardrive Cortex T15 Full - [id number] Implanted:Qty: 1 on 10/26/2021 by Rowdy Grant MD at [facility] Screw Left: Wrist Synthes I 02.200.018 / / Synthes 02.200.016 3.5mm 6mm 16mm Self Tap Low Profile Stardrive Cortex T15 Full - [id number] Implanted:Qty: 1 on 10/26/2021 by Rowdy Grant MD at [facility] Screw Left: Wrist Synthes I 02.200.016 / / Insurance [facility] Care Teams Broaching Machine Operator Relationship Specialty Start Date End Date Mesfin Mitchell MD PCP - General 01/11/21 Mesfin Mitchell MD Emergency Medicine 01/11/21
--- OUTSIDE RECORDS SUMMARY | 2024-11-23 01:01 | XMS_ITS | Clinical Summary ---
Author Organization [facility] Fraire Address [address] [place] [address] Care Team Providers Care Appliance Service Supervisor Name Role Phone Unavailable Primary Care Provider Unavailabl e Allergies No known active allergies Medications metFORMIN (GLUCOPHAGE) 500 mg tablet Take 500 mg by mouth 2 times daily with meals. 3 Active spironolactone (ALDACTONE) 50 mg tablet spironolactone 50 mg tablet 2 Active tamsulosin (FLOMAX) 0.4 mg capsule Take 0.4 mg by mouth daily. 3 Active simvastatin (ZOCOR) 20 mg tablet Take 20 mg by mouth late in the day. 3 Active buPROPion HCL (WELLBUTRIN XL) 150 mg Extended Release 24 hour tablet Take 150 mg by mouth. Active losartan (COZAAR) 100 mg tablet Take 100 mg by mouth daily. 3 Active aspirin (ECOTRIN EC) 81 mg Tablet, Delayed Release (E.C.) Take 81 mg by mouth daily. Active mometasone-for moterol (DULERA) 200-5 mcg/actuation inhaler Take 1 Puff by inhalation. Active diltiaZEM (CARDIZEM CD) 120 mg Controlled Delivery 24 hour capsule Take 120 mg by mouth daily. 3 Active diltiaZEM (TIAZAC) 240 mg Extended Release capsule ONE CAPSULE DAILY ( ALONG WITH ONE 120MG CAPSULE FOR TOTAL DOSE OF 360 MG) 2 Active Active Problems No known active problems Encounters Date Type Department Care Team Description 10/08/2024 External Device Data [facility] ABSTRACTION Provider, Abstract from Last 3 Months Family History Medical History Relation Name Comments Diabetes Father Heart Disease Father Relation Name Status Comments Brother Alive Father Mother Alive Sister Alive Social History Tobacco Use Types Packs/Day Years Used Date Smoking Tobacco: Former Cigarettes Smokeless Tobacco: Former Tobacco Cessation:Counseling Given: Not Answered Alcohol Use Standard Drinks/Week Comments Yes 0 (1 standard drink = 0.6 oz pur e alcohol) occasional Sex and Gender Information Value Date Recorded Sex Assigned at Not on file Legal Sex Male 10:33 PM CDT Gender Identity Not on file Sexual Orientation Not on file Last Filed Vital Signs Vital Sign Reading Time Taken Comments Blood Pressure 123/77 08/28/2023 2:28 PM SUPERVISOR MODERN LANGUAGES Pulse 103 08/28/2023 2:28 PM SUPERVISOR [employer]ANGUAGES Temperature 36.9 C (98.4 F) 08/28/2023 2:28 PM SUPERVISOR [employer]ERN LANGUAGES Respiratory Rate 18 08/28/2023 2:28 PM SUPERVISOR [employer]ANGUAGES Oxygen Saturation 95% 08/28/2023 2:28 PM SUPERVISOR [employer] LANGUAGES Inhaled Oxygen Concentration - - Weight 120.8 kg (266 lb 6.4 oz) 08/28/2023 2:28 PM SUPERVISOR [employer] LANGUAGES Height - - Body Mass Index - - Plan of Treatment Health Maintenance Due Date Last Done Comments PNEUMOCOCCAL VACCINE 0-49 YE ARS (1 of 2 - PCV) 1968 DIABETES ANNUAL FOOT EXAM 1980 DIABETES ANNUAL RETINAL EXAM 1980 DIABETES HBA1C Q 6 MONTHS 1980 DIABETES MICROALBUMIN ANNUAL SCREEN 1980 LDL CHOLESTEROL ANNUAL 1980 COLORECTAL SCREENING 2007 Colorectal Cancer Screening 2007 FIT-DNA Q 3 years 2007 FIT/FOBT Q 1 year 2007 Flex Sig/CT Colonography Q 5 years 2007 ZOSTER VACCINE (1 of 2) 2012 RSV VACCINE (60+ or ) (1 - Risk 60-74 years 1-dose series) 2022 INFLUENZA VACCINE (#1) 2024 0, 08/26/2018, 11/25/2015 DTAP/TDAP/TD VACCINES (2 - T d or Tdap) 04/09/2030 04/09/2020 Insurance [facility] MEDICA[facility]
--- OUTSIDE RECORDS SUMMARY | 2024-11-23 01:01 | XMS_ITS | Clinical Summary ---
Author Organization [facility] Address [address] [place] [address] Care Team Providers Care Websphere Consultant Name Role Phone Mesfin Mitchell MD Primary Care Provider [phone] Source Comments [facility],non-owned Affiliates and Associated Physician Practices is amultiple site organization consisting of ambulatory clinics and hospital sitesin [place], [place], [place] and [place]. This disclosure is being madepursuant to the Care Everywhere program and may not contain all information available regarding this patient. Last updated 18.[employer] Allergies No known active allergies Medications * [...] 03/21/2023 9:01 AM CDT Plan of Treatment Health Maintenance Due Date Last Done Comments COLOGUARD (AGES 45-75) - COL ON CA SCREENING 1962 COLON MONITORING 1962 COLONOSCOPY - COLON CA SCREENING 1962 CT COLONOGRAPHY - COLON CA SCREENING 1962 Colorectal Cancer Screening 1962 FIT - COLON CA SCREENING 1962 FLEX SIG - COLON CA SCREENING 1962 HIV SCREENING 1977 HEPATITIS C SCREENING 07/26/1980 DTAP/TDAP/TD VACCINES (1 - Tdap) 1981 PNEUMOCOCCAL VACCINE 50+ (1 of 1 - PCV) 2012 ZOSTER VACCINE (1 of 2) 2012 Respiratory Syncytial Virus (RSV) Vaccine Pt: or over 60 yrs (1 - Risk 60-74 years 1-dose series) 2022 SCREENING FOR DIABETES 03/21/2023 COVID-19 VACCINE (1 - 2023-2 5 season) 2024 INFLUENZA VACCINE (#1) 2024 0, 08/26/2018, 11/25/2015 DEPRESSION SCREENING 09/16/2024 HEPATITIS B VACCINE Aged Out No longe r eligible based on patient's age to complete this topic HIB VACCINE Aged Out No longer eligi ble based on patient's age to complete this topic HPV VACCINE Aged Out No longer eligi ble based on patient's age to complete this topic MENINGOCOCCAL (Group B) VACCINE Aged Out No longer eligible b ased on patient's age to complete this topic MENINGOCOCCAL VACCINE Aged Out No ángel david eligible based on patient's age to complete this topic PNEUMOCOCCAL VACCINE Aged Out No long er eligible based on patient's age to complete this topic Care Teams Websphere Consultant Relationship Specialty Start Date End Date Mesfin Mitchell MD [address] [place] [address] PCP - General 04/03/17
--- OUTSIDE RECORDS SUMMARY | 2024-11-23 01:01 | XMS_ITS | Patient Health Summary ---
Author Organization [facility] [employer] Address [address] [place] [address] Care Team Providers Care Regional Dedicated Truck Driver Name Role Phone Mesfin Mitchell MD Primary Care Provider [phone] Note from [facility] [employer] [facility],non-owned Affiliates and Associated Physician Practices is amultiple site organization consisting of ambulatory clinics and hospital sitesin [place], [place], [place] and [place]. This disclosure is being madepursuant to the Care Everywhere program and may not contain all information available regarding this patient. Last updated 18.[facility] [employer] Allergies No known active allergies Medications * Be aware that medications may not be up to date on this document. Alwaysverify current medications with the patient. * buPROPion XL 24hr (WELLBUTRIN-XL) 150 MG tablet(Started 02/12/2018) * fluticasone propionate (FLONASE) 50 MCG/ACT nasal spray(Started 02/12/2018) * losartan-hydroCHLOROthiazide (HYZAAR) 100-25 MG tablet(Started 02/12/2018) * spironolactone (ALDACTONE) 50 MG tablet(Started 01/24/2018) Take 50 mg by mouth once daily * tamsulosin (FLOMAX) 0.4 MG capsule(Started 01/22/2018) Take 0.4 mg by mouth once daily * aspirin EC (ECOTRIN) 81 MG tablet Take 81 mg by mouth once daily * Omeprazole (PRILOSEC PO) Take 40 mg by mouth as directed * metFORMIN (GLUCOPHAGE) 500 MG tablet Take 500 mg by mouth 2 times daily with morning and evening meal * dilTIAZem coated beads 24hr (DILTIAZEM CD) 240 MG capsule Take 240 mg by mouth once daily * dilTIAZem coated beads 24hr (DILTIAZEM CD) 120 MG capsule Take 120 mg by mouth once daily Do not crush or chew. * simvastatin (ZOCOR) 20 MG tablet Take 20 mg by mouth at bedtime * tiotropium (SPIRIVA HANDIHALER) 18 MCG inhalation capsule Inhale 1 capsule by mouth once daily * mometasone-formoterol (DULERA) 200-5 MCG/ACT inhaler Inhale 1 puff by mouth once daily * ALBUTEROL IN Inhale by mouth as needed * Oxygen Use as directed 2l/min as needed for SOB Active Problems No known active problems Social [...] Mass Index 41.88 03/21/2023 9:01 AM CDT Procedures * XR KNEE LEFT 4VW OR MORE(Performed 03/21/2023) Performed for Pain in both knees, unspecified chronicity * XR KNEE RIGHT 4VW OR MORE(Performed 03/21/2023) Performed for Pain in both knees, unspecified chronicity * SC DRAIN/INJECT LARGE JOINT/BURSA(Performed 09/22/2018) Performed for Primary osteoarthritis of right knee * XR KNEE RIGHT 4VW OR MORE(Performed 09/22/2018) Performed for Right knee pain, unspecified chronicity * SC DRAIN/INJECT LARGE JOINT/BURSA(Performed 08/13/2018) Performed for Primary osteoarthritis of left knee * XR KNEE RIGHT 4VW OR MORE(Performed 08/11/2018) Performed for Right knee pain, unspecified chronicity * IR NERVE BLOCK L OR S UNILAT(Performed 03/28/2018) Performed for Chronic left-sided low back pain, with sciatica presence unspecified * SC DRAIN/INJECT LARGE JOINT/BURSA(Performed 03/04/2018) Performed for Primary osteoarthritis of left knee * XR LUMBAR SPINE 4VW OR MORE(Performed 03/04/2018) Performed for Other chronic pain * XR KNEE LEFT 4VW OR MORE(Performed 03/04/2018) Performed for Other chronic pain Results * XR KNEE LEFT 4VW OR MORE (03/21/2023 9:01 AM CDT) Only the most recent of2 resultswithin the time period is included. Anatomical Region Laterality Modality Lower Extremity Radiographic Maya ging 03/21/2023 9:04 AM CDT Impressions 03/21/2023 9:12 AM CDT IMPRESSION: Osteoarthritis, severe in the medial compartment. Report dictated by David Rush MD (residential property tax appraiser). I, Micha Fleming MD have personally reviewed and interpreted this examination/study. > Interpreting Provider: Micha Fleming MD on 03/21/2023 9:12 AM Narrative 03/21/2023 9:12 AM CDT PROCEDURE: XR KNEE LEFT 4VW OR MORE, DATE/TIME OF EXAM: 03/21/2023 9:02 AM, LOCATION [facility] INDICATION: M25.561: Pain in both knees, unspecified chronicity M25.562: Pain in both knees, unspecified chronicity ADDITIONAL CLINICAL INFORMATION: Ordering Provider Reason For Exam: PAIN COMPARISON: Left knee x-ray from 03/04/2018. FINDINGS: Redemonstrated osteoarthritis of the knee, most significant in the medial compartment where there is severe joint space narrowing and thcv-dy-[id number] contact. Osteophytes are noted in the all compartments. No acute fracture. A small effusion. Procedure Note Micha Fleming MD - 03/21/2023 PROCEDURE: XR KNEE LEFT 4VW OR MORE, DATE/TIME OF EXAM: 03/21/2023 9:02AM, LOCATION [facility] INDICATION: M25.561: Pain in both knees, unspecified chronicity M25.562: Pain in both knees, unspecified chronicity ADDITIONAL CLINICAL INFORMATION: Ordering Provider Reason For Exam: PAIN COMPARISON: Left knee x-ray from 03/04/2018. FINDINGS: Redemonstrated osteoarthritis of the knee, most significant in themedial compartment where there is severe joint space narrowing and crfu-ux-kzvh contact. Osteophytes are noted in the all compartments. No acutefracture. A small effusion. IMPRESSION: Osteoarthritis, severe in the medial compartment. Report dictated by David Rush MD (residential property tax appraiser). Micha Reeves MD have personally reviewed and interpreted this examination/study. > Interpreting Provider: Micha Fleming MD on 03/21/2023 9:12 AM Jocelyn Sherman MD DIAGNOSTIC IMAGING O RDERABLES * XR KNEE RIGHT 4VW OR MORE (03/21/2023 9:01 AM CDT) Only the most recent of3 resultswithin the time period is included. Anatomical Region Laterality Modality Lower Extremity Radiographic Maya ging 03/21/2023 9:07 AM CDT Impressions 03/21/2023 9:11 AM CDT IMPRESSION: Moderate osteoarthritis in the medial compartment. Report dictated by David Rush MD (residential property tax appraiser). Micha Reeves MD have personally reviewed and interpreted this examination/study. > Interpreting Provider: Micha Fleming MD on 03/21/2023 9:11 AM Narrative 03/21/2023 9:11 AM CDT PROCEDURE: XR KNEE RIGHT 4VW OR MORE, DATE/TIME OF EXAM: 03/21/2023 9:01 AM, LOCATION [facility] INDICATION: M25.561: Pain in both knees, unspecified chronicity M25.562: Pain in both knees, unspecified chronicity ADDITIONAL CLINICAL INFORMATION: Ordering Provider Reason For Exam: PAIN COMPARISON: Right knee x-ray from 09/22/2018. FINDINGS: Moderate joint space narrowing in the medial compartment, increased from prior study. Osteophytes are present. No acute fracture. Mild chronic deformity of the proximal fibula is likely an old fracture. Small joint effusion is present. Procedure Note Micha Fleming MD - 03/21/2023 PROCEDURE: XR KNEE RIGHT 4VW OR MORE, DATE/TIME OF EXAM: 03/21/2023 9:01 AM, LOCATION [facility] INDICATION: M25.561: Pain in both knees, unspecified chronicity M25.562: Pain in both knees, unspecified chronicity ADDITIONAL CLINICAL INFORMATION: Ordering Provider Reason For Exam: PAIN COMPARISON: Right knee x-ray from 09/22/2018. FINDINGS: Moderate joint space narrowing in the medial compartment, increased from prior study. Osteophytes are present. No acute fracture. Mild chronic deformity of the proximal fibula is likely an old fracture. Small joint effusion is present. IMPRESSION: Moderate osteoarthritis in the medial compartment. Report dictated by David Rush MD (residential property tax appraiser). I, Micha Fleming MD have personally reviewed and interpreted this examination/study. > Interpreting Provider: Micha Fleming MD on 03/21/2023 9:11 AM Jocelyn Sherman MD DIAGNOSTIC IMAGING O RDERABLES * SC DRAIN/INJECT LARGE JOINT/BURSA (09/22/2018 10:42 PM PRODUCT DEVELOPMENT CONSULTANT) Narrative Rosalie Tinoco PA-C - 09/22/2018 10:42 PM PRODUCT DEVELOPMENT CONSULTANT Rosalie Tinoco PA-C 09/22/2018 10:42 PM Orthopaedic Surgery Procedure Note Diagnosis: Right knee pain Procedure: Injection of Corticosteroid into the Right knee. Indications: Ivan Lawson is a 58 y.o. male who has Right knee pain and arthritis. Procedure Details: Mr. Lawson was informed of his condition, and the potential benefits of injection of steroid. The patient was counseled as to the risks of the procedure. He was understanding and agreeable. The patient was placed into the supine position. The area was prepped with beta-dine. Utilizing the supralateral patellar portal, the skin, subcutaneous, and pericapsular tissues were injected with 3 cc 1% lidocaine without epinephrine using a 21 Ga needle. The patient's Right knee was then entered. Confirmation of location inside the joint was evidenced by aspiration of straw colored synovial fluid. 2 cc of Kenalog and 3 cc 1% lidocaine without epinephrine was injected into the joint. The needle was removed and the needle site dressed with a semi-sterile bandage. The patient tolerated the procedure well. Remainder of plan per note. Rosalie Tinoco PA-C 09/22/2018 4:17 PM Rosalie Tinoco PA-C PROCEDURE/MINOR SURGICAL ORDERABLES * SC DRAIN/INJECT LARGE JOINT/BURSA (08/13/2018 10:08 PM PRODUCT DEVELOPMENT CONSULTANT) Narrative Rosalie Tinoco PA-C - 08/13/2018 10:08 PM PRODUCT DEVELOPMENT CONSULTANT Rosalie Tinoco PA-C 08/13/2018 10:08 PM Orthopaedic Surgery Procedure Note Diagnosis: Left knee pain Procedure: Injection of Corticosteroid into the Left knee. Indications: Ivan Lawson is a 58 y.o. male who has Left knee pain and arthritis. Procedure Details: Mr. Lawson was informed of his condition, and the potential benefits of injection of steroid. The patient was counseled as to the risks of the procedure. He was understanding and agreeable. The patient was placed into the supine position. The area was prepped with beta-dine. Utilizing the supralateral patellar portal, the skin, subcutaneous, and pericapsular tissues were injected with 3 cc 1% lidocaine without epinephrine using a 21 Ga needle. The patient's Left knee was then entered. Confirmation of location inside the joint was evidenced by aspiration of straw colored synovial fluid. 2 cc of Kenalog and 3 cc 1% lidocaine without epinephrine was injected into the joint. The needle was removed and the needle site dressed with a semi-sterile bandage. The patient tolerated the procedure well. Remainder of plan per note. Rosalie Tinoco PA-C 08/11/2018 4:44 PM Rosalie Tinoco PA-C PROCEDURE/MINOR SURGICAL ORDERABLES * IR NERVE BLOCK L OR S UNILAT (03/28/2018 2:59 PM CDT) Anatomical Region Laterality Modality X-Ray Angiograph y 03/29/2018 2:33 PM CDT Impressions 03/29/2018 2:44 PM CDT IMPRESSION: 1.Successful therapeutic transforaminal epidural injection at left L4-L5 nerve root under fluoroscopic guidance. 2.Pre-procedure pain was 4/10 and post-procedure pain was 3/10. IDr. Mcconnell, performed/was present throughout the procedure. This report was electronically signed by MATTY MCCONNELL M.D. on 03/29/2018 2:44 PM . Narrative 03/29/2018 2:44 PM CDT History: 57 yo male with a low back pain and imaging demonstrating L4-L5 bilateral foraminal narrowing. Patient presents for left L4-L5 transforaminal epidural spinal injection. He reports that his pain is currently 4/10. Operators: 1.Dr. Mcconnell, Attending Physician Anesthesia: 1.Local anesthesia - 5 ml of 1 % lidocaine Procedure: 1.Rod Drawer radiograph of the lumbar spine. 2.Fluoroscopic-guided transforaminal epidural injection at left L4-L5 nerve root. Sedation time: None. Fluoroscopic time: 2.6 minute Contrast: 5 mL of Isovue-200 Procedure in detail: The procedure, risks, and possible complications were explained to the patient in detail, and informed consent was obtained. The patient was placed in a prone position on the procedure table. The lower back was prepped and draped in the usual sterile manner. A change control specialist radiograph of the lumbar spine was obtained, which demonstrated moderate degenerative changes of the lower lumbar spine. An appropriate percutaneous entry site was marked on the skin. The skin around the region was prepped and draped in a sterile fashion. Local anesthesia was provided by the injection with 1% Lidocaine. Under intermittent fluoroscopic guidance, a 22-gauge, 5 inch needle was inserted adjacent to the left L4-L5 neural foramen. Position at that location was confirmed by injecting a small volume of Isovue 200 contrast. Once verified, an 6 mL solution was injected into the space containing 3 mL of Betamethasone and 3 mL of Bupivacaine 0.5%. The needle was removed, and a sterile dressing was applied. The patient tolerated the procedure well. The patient was transferred to the holding area in stable condition. Procedure Note Matty Mcconnell MD - 03/29/2018 History: 57 yo male with a low back pain and imaging demonstrating L4-L5 bilateral foraminal narrowing. Patient presents for left L4-L5 transforaminal epidural spinal injection. He reports that his pain is currently 4/10. Operators: 1.Dr. Mcconnell, Attending Physician Anesthesia: 1.Local anesthesia - 5 ml of 1 % lidocaine Procedure: 1.Rod Drawer radiograph of the lumbar spine. 2.Fluoroscopic-guided transforaminal epidural injection at left L4-L5 nerve root. Sedation time: None. Fluoroscopic time: 2.6 minute Contrast: 5 mL of Isovue-200 Procedure in detail: The procedure, risks, and possible complications were explained to the patient in detail, and informed consent was obtained. The patient was placed in a prone position on the procedure table. The lower back was prepped and draped in the usual sterile manner. A change control specialist radiograph of the lumbar spine was obtained, which demonstrated moderate degenerative changes of the lower lumbar spine. An appropriate percutaneous entry site was marked on the skin. The skin around theregion was prepped and draped in a sterile fashion. Local anesthesia wasprovided by the injection with 1% Lidocaine. Under intermittent fluoroscopic guidance, a 22-gauge, 5 inch needle was inserted adjacent to the left L4-L5 neural foramen. Position at that location was confirmed by injecting a small volume of Isovue 200contrast. Once verified, an 6 mL solution was injected into the space containing 3 mL of Betamethasone and 3 mL of Bupivacaine 0.5%. The needle wasremoved, and a sterile dressing was applied. The patient tolerated the procedure well. The patient was transferred to the holding area in stable condition. IMPRESSION: 1.Successful therapeutic transforaminal epidural injection at left L4-L5 nerve root under fluoroscopic guidance. 2.Pre-procedure pain was 4/10 and post-procedure pain was 3/10. IDr. Mcconnell, performed/was present throughout the procedure. This report was electronically signed by MATTY MCCONNELL M.D. on 03/29/2018 2:44 PM . Rosalie Tinoco PA-C IR ORDERABLES * SC DRAIN/INJECT LARGE JOINT/BURSA (03/04/2018 12:30 PM CDT) Narrative Rosalie Tinoco PA-C - 03/04/2018 12:30 PM CDT Rosalie Tinoco PA-C 03/04/2018 12:30 PM Orthopaedic Surgery Procedure Note Diagnosis: Left knee pain Procedure: Injection of Corticosteroid into the Left knee. Indications: Ivan Lawson is a 57 y.o. male who has Left knee pain and arthritis. Procedure Details: Mr. Lawson was informed of his condition, and the potential benefits of injection of steroid. The patient was counseled as to the risks of the procedure. He was understanding and agreeable. The patient was placed into the supine position. The area was prepped with beta-dine. Utilizing the supralateral patellar portal, the skin, subcutaneous, and pericapsular tissues were injected with 3 cc 1% lidocaine without epinephrine using a 21 Ga needle. The patient's Left knee was then entered. Confirmation of location inside the joint was evidenced by aspiration of 24 cc straw colored synovial fluid. 2 cc of Kenalog and 3 cc 1% lidocaine without epinephrine was injected into the joint. The needle was removed and the needle site dressed with a semi-sterile bandage. The patient tolerated the procedure well. Remainder of plan per note. Rosalie Tinoco PA-C 03/04/2018 12:30 PM Rosalie Tinoco PA-C PROCEDURE/MINOR SURGICAL ORDERABLES * XR LUMBAR SPINE 4VW OR MORE (03/04/2018 10:48 AM CDT) Anatomical Region Laterality Modality Spine Radiographic Maya ging 03/04/2018 6:39 PM CDT Impressions 03/04/2018 6:40 PM CDT IMPRESSION: Mild to moderate degenerative changes. This report was electronically signed by MICHA FLEMING MD on 03/04/2018 6:40 PM . Narrative 03/04/2018 6:40 PM CDT Exam: XR LUMBAR SPINE 4VW OR MORE History: include flexion and extension Comparison: None. Findings: The lumbar lordosis is normal. There is mild dextroscoliosis of the lower thoracic and lumbar spine. Mild multilevel degenerative disc disease and moderate facet degeneration are present. No fracture or subluxation is seen. Procedure Note Micha Fleming MD - 03/04/2018 Exam: XR LUMBAR SPINE 4VW OR MORE History: include flexion and extension Comparison: None. Findings: The lumbar lordosis is normal. There is mild dextroscoliosis of thelower thoracic and lumbar spine. Mild multilevel degenerative disc disease and moderate facet degeneration are present. No fracture or subluxation is seen. IMPRESSION: Mild to moderate degenerative changes. This report was electronically signed by MICHA FLEMING MD on03/04/2018 6:40 PM . Rosalie Tinoco PA-C DIAGNOSTIC IMAG ING ORDERABLES Care Teams Regional Dedicated Truck Driver Relationship Specialty Start Date End Date Mesfin Mitchell MD [facility] [address] [address] PCP - General 04/03/17
--- OUTSIDE RECORDS SUMMARY | 2024-11-23 01:01 | XMS_ITS | Clinical Summary ---
Author Organization [facility] Address [address] [place] [address] Care Team Providers Care Finance Administrator Name Role Phone Mesfin Mitchell MD Primary Care Provider [phone] Mesfin Mitchell MD Unavailable Allergies No known [...] by mouth every morning Active influenza quadrivalent [id number] (FLUZONE) 60 mcg (15 mcg x 4)/0.5 [...] (10/11/2021): Added automatically from request for surgery [id number] Arthritis 10/11/2021 Hand injuries 10/11/2021 Diabetes mellitus, [...] it, Preservative Free, Intramuscular 10/24/2019,08/26/2018,11/25/2015 Tdap 04/09/2020 Surgical History Surgery Date Site/Laterality Comments IMPLANTABLE CONTACT LENS IMPLANTATION PLEURAL SCARIFICATION SIGMOID RESECTION / RECTOPEXY ABDOMINAL HERNIA REPAIR INGUINAL HERNIA REPAIR Medical History Medical History Date Comments Hypertension Depression Anxiety Julian esophagus COPD (chronic obstructive pulmonary disease) (HC C) Pneumonia Poor circulation Difficulty walking Back pain Arthritis Shortness of breath Pneumonia 2017 Sleep apnea Hiatal hernia Acid reflux Diabetes mellitus (HCC) Full dentures Wears glasses Anxiety Family History Medical History Relation Name Comments No Known Problems Father No Known Problems Mother Anesthesia problems Neg Hx Relation Name Status Comments Father Mother Social History Tobacco Use Types Packs/Day Years [...] on file Legal Sex Male 3:55 AM [employer] Gender Identity Not on file Sexual Orientation Not on file Obstetrics History Last Filed Vital Signs Vital Sign Reading Time Taken Comments Blood Pressure 101/57 10/26/2021 6:00 PM [employer] Pulse 90 10/26/2021 6:00 PM [employer] Temperature 36.5 C (97.7 F) 09/05/2017 9:43 AM [employer] Respiratory Rate 17 10/26/2021 6:00 PM [employer] Oxygen Saturation 98% 10/26/2021 6:00 PM [employer] Inhaled Oxygen Concentration - - Weight 122.2 kg (269 lb 6.4 oz) 02/26/2022 1:12 PM CDT Height 167.6 cm (5' 6 ) 02/26/2022 1:12 PM CDT Body Mass Index 43.48 02/26/2022 1:12 PM CDT Plan of Treatment Health Maintenance Due Date Last Done Comments Albumin Creatinine Ratio, Urine 1962 Colon Cancer Screening-Colonoscopy 1962 Depression Screening 1962 Hemoglobin A1C 1962 Hepatitis C Screening 1962 Prostate Cancer Screening-PSA 1962 eGFR 1962 Dilated Eye Exam 1962 Foot Exam 1962 Lipid Panel 1962 Hepatitis B Screening 1980 Regular Well Visit/Exam 18-64 1980 Pneumococcal vaccine <65 (1 of 2 - PCV) 1981 Zoster Vaccine (1 of 2) 2012 Covid-19 Vaccine (3 - 2023- season) 05/17/202401/2021, 11/21/2020 Influenza Vaccine (#1) 2024 , 08/26/2018, 11/25/2015 DTaP/Tdap/Td Vaccine (2 - Td or Tdap) 04/09/2030 Medical Devices Implanted Type Area Laundry Press Operator Device Identifier Shelf Expiration Date Model / Serial / Lot Synthes 02.110.152 Lcp 112mm Fusion Wrist Straight Plate Bone Stainless Steel - [id number] Implanted:Qty: 1 on 10/26/2021 by Rowdy Grant MD at [facility] Plate Left: Wrist Synthes I 02.110.152 / / Synthes 202.872 2.7mm 5mm 12mm 2.5mm Self Tap St[employer]rive Cortical T8 Screw Bone - [id number] Implanted:Qty: 1 on 10/26/2021 by Rowdy Grant MD at [facility] Screw Left: Wrist Synthes I 202.872 / / Synthes 202.220 2.7mm 2.1mm 20mm Self Tap Lock [employer] Thread Head Profile T8 - [id number] Implanted:Qty: 1 on 10/26/2021 by Rowdy Grant MD at [facility] [employer] Screw Left: Wrist Synthes I 202.220 / / Synthes 202.216 2.7mm 2.1mm 16mm Self Tap Lock [employer] Thread Head Profile T8 - [id number] Implanted:Qty: 1 on 10/26/2021 by Rowdy Grant MD at [facility] Screw Left: Wrist Synthes I 202.216 / / Synthes 212.104 3.5mm 2.9mm 16mm Self Tap Lock [employer] Conical Head T15 Full - [id number] Implanted:Qty: 2 on 10/26/2021 by Rowdy Grant MD at [facility] [employer] Screw Left: Wrist Synthes I 212.104 / / Synthes 02.200.018 3.5mm 6mm 18mm Self Tap Low Profile [employer] Cortex T15 Full - [id number] Implanted:Qty: 1 on 10/26/2021 by Rowdy Grant MD at [facility] Screw Left: Wrist Synthes I 018 / / Synthes 3.5mm 6mm 16mm Self Tap Low Profile [employer] Cortex T15 Full - [id number] Implanted:Qty: 1 on 10/26/2021 by Rowdy Grant MD at [facility] [employer] Screw Left: Wrist Synthes I 016 / / [facility] Care Teams Finance Administrator Relationship Specialty Start Date End Date Mesfin Mitchell MD PCP - General 01/11/21 Mesfin Mitchell MD Emergency Medicine 01/11/21
[2024-11-23 12:27] VITALS: BP 138/92; PULSE 86; RESP 18; TEMP 36.4; O2SAT 96
[2024-11-23 12:40] LABS: Glucose Point of Care 309 mg/dl (65-105)
[2024-11-23] MEDS: LACTATED RINGERS 1,000 ML 150 ML IV CONT (12:54)
--- NOTE | 2024-11-23 13:34 | P.PNAN_ITS ---
Anes - Initial Pre Proc Eval Procedure: Operation Date: 11/23/24 13:30 Proposed Procedures p Screening Colonoscopy - Maulik Quiñones MD Date/Time: 11/23/24 13:34 Surgeon: Maulik Quiñones MD Pre Op Diagnosis: Screening Patient Data Age: 64 Gender: M Height: 1.68 m Weight: 114 kg Last Vital Signs Temp 36.4 C 11/23/24 12:27 Pulse 86 11/23/24 12:27 Resp 18 11/23/24 12:27 BP 138/92 H 11/23/24 12:27 Pulse Ox 96 11/23/24 12:27 O2 Del Method Room Air 11/23/24 12:27 Allergies Allergy/AdvReac Type Severity Reaction Status Date / Time No Known Allergies Allergy Verified 11/23/24 12:21 Home Medications ?Medication ?Instructions ?Recorded ?Confirmed ?Type aspirin 81 mg tablet,delayed 81 mg PO DAILY 11/13/19 11/23/24 History release bupropion HCl 150 mg 24 hr tablet, 150 mg PO QAM 11/13/19 11/23/24 History extended release diltiazem HCl 360 mg 360 mg PO DAILY 11/13/19 11/23/24 History capsule,extended release 24 hr losartan 100 mg tablet 100 mg PO DAILY 11/13/19 11/23/24 History spironolactone 50 mg tablet 50 mg PO DAILY 11/13/19 11/23/24 History (Aldactone) tamsulosin 0.4 mg capsule 0.4 mg PO DAILY 11/13/19 11/23/24 History omeprazole 40 mg capsule,delayed 40 mg PO DAILY 01/14/20 11/23/24 History release metformin 500 mg tablet 500 mg PO BID 02/07/21 11/23/24 History Ventolin HFA 90 mcg/actuation See Rx Instructions .Route 06/28/21 11/23/24 Rx aerosol inhaler (albuterol sulfate) .COMPLEX #18 grams multivitamin 1 tablet PO DAILY 09/29/21 11/23/24 History fluticasone propionate 50 1 spray intranasal BID PRN nasal 10/14/23 11/23/24 Rx mcg/actuation nasal congestion #18.2 mL spray,suspension simvastatin 20 mg tablet 20 mg PO DAILY 12/27/23 11/23/24 History RSVPreF3 antigen-AS01E 0.5 ml IM ONCE #1 ea 08/11/24 11/12/24 Rx adjuvant(PF) 120 mcg/0.5 mL IM suspension, kit mometasone-formoterol HFA 100 2 puff inhalation Q12H COPD 1 08/11/24 11/23/24 Rx mcg-5 mcg/actuation aerosol month #13 grams inhaler (Dulera) tiotropium bromide 2.5 2 puff inhalation DAILY 1 month #4 08/11/24 11/23/24 Rx mcg/actuation mist for inhalation grams (Spiriva Respimat) albuterol sulfate 2.5 mg/3 mL 2.5 mg inhalation ONCE PRN 11/12/24 11/23/24 History (0.083 %) solution for nebulization shortness of breath or wheezing Laboratory Tests 11/23/24 12:37 POC Capillary Glucose 309 H mg/dl (65-105) Patient hx anesthesia problems: none Family hx anesthesia problems: none Results Review: All pre-operative results and documents have been reviewed as part of the pre- operative evaluation. [facility] Past Medical History Medical History Hallux rigidus of right foot Smoking Morbid obesity with BMI of 40.0-44.9, adult Knee joint effusion Hepatomegaly Julian's esophagus Left knee DJD Right knee DJD Lung nodules BMI greater than 40 Bilateral knee pain Hypoxemia Arthritis of knee, degenerative Collapsed lung Arthritis Anxiety GERD (gastroesophageal reflux disease) Hypertension Sleep apnea Pneumonia Emphysema of lung Shortness of breath Weight gain Maisonneuve fracture of right lower extremity Fracture of ankle (11/11/19) Traumatic hyphema of left eye Pneumothorax Diabetes type 2, controlled Surgical History Surgical History S/P partial colectomy Family History Family History Father Cerebrovascular accident Family history of diabetes mellitus in first degree relative Family history of malignant neoplasm Mother Family history of arthritis Other Arthritis Diabetes mellitus Family history of allergic disorder Family history of cardiovascular disease Heart disease Hypertension Social History Social History Smoking packs per day: 1 Smoking cigarettes per day: 20.0 Years smoked: 25 Smoking pack-years: 25.00 Smoking status: Former smoker Tobacco type: cigarettes Smoking end date: 09/16/15 Alcohol intake: never Substance use: never Substance use type: does not use Lack of Transportation: No Lack of Food: Never True Current Housing: I Have Housing Concerned About Future Housing: No Difficulty Paying Gas/Electric Bills: YES Difficulty Paying for Meds: No Currently Unemployed: No Education: High School Diploma/GED Difficulty w/ Childcare or Family Care: No Living arrangements: with friend(s) Gender identity (if verbalized by the patient): Male Spiritual care concerns: No Anes - Eval Final PreProcedure Day of Procedure 11/23/24 13:34 Patient weight: morbidly obese Heart: regular rate and rhythm Lungs: decreased breath sounds Airway: Mallampati scale class II Neurological: alert and oriented Last oral intake: >/= 8 hours ASA classification: III Emergent: no Anesthetic plan: proceed Anesthesia type and monitoring: general GIVS and standard monitoring Results Review: All pre-operative results and documents have been reviewed as part of the pre- operative evaluation. Informed Consent: The patient's anesthetic plan and its attendant risks and benefits were discussed with the patient/family/POA. Questions were solicited and answers provided to the satisfaction of the patient/family/POA.
--- NOTE | 2024-11-23 13:53 | PM.HPGS ---
History of Present Illness History of Present Illness Consent: Risks, benefits, and alternatives have been discussed and questions answered. Patient agrees to proceed with procedure. Chief complaint: Screening Narrative: Ivan Lawson is a 64 year old male here for screening colonoscopy, last one about 10 years ago Review of Systems Review of Systems: All systems reviewed & are unremarkable except as noted in HPI and below PMFSH Past Medical History Medical History (Updated 11/23/24 @ 13:54 by Maulik Quiñones MD) Colon cancer screening Hallux rigidus of right foot Smoking Morbid obesity with BMI of 40.0-44.9, adult Knee joint effusion Hepatomegaly Julian's esophagus Left knee DJD Right knee DJD Lung nodules BMI greater than 40 Bilateral knee pain Hypoxemia Arthritis of knee, degenerative Collapsed lung Arthritis Anxiety GERD (gastroesophageal reflux disease) Hypertension Sleep apnea Pneumonia Emphysema of lung Shortness of breath Weight gain Maisonneuve fracture of right lower extremity Fracture of ankle (11/11/19) Traumatic hyphema of left eye Pneumothorax Diabetes type 2, controlled Surgical History Surgical History S/P partial colectomy Family History Family History Father Cerebrovascular accident Family history of diabetes mellitus in first degree relative Family history of malignant neoplasm Mother Family history of arthritis Other Arthritis Diabetes mellitus Family history of allergic disorder Family history of cardiovascular disease Heart disease Hypertension Social History Social History Smoking packs per day: 1 Smoking cigarettes per day: 20.0 Years smoked: 25 Smoking pack-years: 25.00 Smoking status: Former smoker Tobacco type: cigarettes Smoking end date: 09/16/15 Alcohol intake: never Substance use: never Substance use type: does not use Lack of Transportation: No Lack of Food: Never True Current Housing: I Have Housing Concerned About Future Housing: No Difficulty Paying Gas/Electric Bills: YES Difficulty Paying for Meds: No Currently Unemployed: No Education: High School Diploma/GED Difficulty w/ Childcare or Family Care: No Living arrangements: with friend(s) Gender identity (if verbalized by the patient): Male Spiritual care concerns: No Meds Home Medications and Allergies Home Medications ?Medication ?Instructions ?Recorded ?Confirmed ?Type aspirin 81 mg tablet,delayed 81 mg PO DAILY 11/13/19 11/23/24 History release bupropion HCl 150 mg 24 hr tablet, 150 mg PO QAM 11/13/19 11/23/24 History extended release diltiazem HCl 360 mg 360 mg PO DAILY 11/13/19 11/23/24 History capsule,extended release 24 hr losartan 100 mg tablet 100 mg PO DAILY 11/13/19 11/23/24 History spironolactone 50 mg tablet 50 mg PO DAILY 11/13/19 11/23/24 History (Aldactone) tamsulosin 0.4 mg capsule 0.4 mg PO DAILY 11/13/19 11/23/24 History omeprazole 40 mg capsule,delayed 40 mg PO DAILY 01/14/20 11/23/24 History release metformin 500 mg tablet 500 mg PO BID 02/07/21 11/23/24 History Ventolin HFA 90 mcg/actuation See Rx Instructions .Route 06/28/21 11/23/24 Rx aerosol inhaler (albuterol sulfate) .COMPLEX #18 grams multivitamin 1 tablet PO DAILY 09/29/21 11/23/24 History fluticasone propionate 50 1 spray intranasal BID PRN nasal 10/14/23 11/23/24 Rx mcg/actuation nasal congestion #18.2 mL spray,suspension simvastatin 20 mg tablet 20 mg PO DAILY 12/27/23 11/23/24 History RSVPreF3 antigen-AS01E 0.5 ml IM ONCE #1 ea 08/11/24 11/12/24 Rx adjuvant(PF) 120 mcg/0.5 mL IM suspension, kit mometasone-formoterol HFA 100 2 puff inhalation Q12H COPD 1 08/11/24 11/23/24 Rx mcg-5 mcg/actuation aerosol month #13 grams inhaler (Dulera) tiotropium bromide 2.5 2 puff inhalation DAILY 1 month #4 08/11/24 11/23/24 Rx mcg/actuation mist for inhalation grams (Spiriva Respimat) albuterol sulfate 2.5 mg/3 mL 2.5 mg inhalation ONCE PRN 11/12/24 11/23/24 History (0.083 %) solution for nebulization shortness of breath or wheezing Allergies Allergy/AdvReac Type Severity Reaction Status Date / Time No Known Allergies Allergy Verified 11/23/24 12:21 Vital Signs Vital Signs - 24 hr 11/23/24 12:27 Temperature 97.6 F Pulse Rate 86 Respiratory Rate 18 Blood Pressure 138/92 H Pulse Oximetry 96 Oxygen Delivery Room Air Exam Const: General: comfortable and no acute distress HENMT: Face/Nose/Sinus: Normal nares present Eyes: General: appearance normal, both eyes and all related structures Neck: Neck: no JVD Resp: Auscultation: clear to auscultation bilaterally Cardio: Rate: regular rate Rhythm: regular rhythm GI: Inspection: non-distended GI Palp: Yes Soft to palpation Skin: General skin exam: normal color Neuro: Speech: normal speech Extrem: General: normal to inspection Psych: Mental Status: mental status grossly normal Assessment and Plan Assessment and plan (1) Colon cancer screening: Code(s): Z12.11 - Encounter for screening for malignant neoplasm of colon Status: Acute Assessment and Plan: colonoscopy
[2024-11-23 14:14] VITALS: BP 116/75; PULSE 100; RESP 20; O2SAT 95
[2024-11-23 14:24] VITALS: BP 109/74; PULSE 102; RESP 20; O2SAT 94
[2024-11-23 14:34] VITALS: BP 117/69; PULSE 89; RESP 20; O2SAT 98
== END 2024-11-23 14:44 | disposition home or self-care (01) ==
PROVIDERS: PCP Emergency Medicine; Referring Provider Emergency Medicine; Visit Provider Internal Medicine Gastroenterology
PROC: 0DJD8ZZ Inspection of Lower Intestinal Tract, Via Natural or Artificial Opening Endoscopic (ICD-10-PCS; CPT 45378; principal; 2024-11-23 13:30)
DX: Z12.11 Encounter for screening for malignant neoplasm of colon (principal); D12.3 Benign neoplasm of transverse colon; K57.30 Diverticulosis of large intestine without perforation or abscess without bleeding; K64.8 Other hemorrhoids; Z98.0 Intestinal bypass and anastomosis status; Z90.49 Acquired absence of other specified parts of digestive tract; E11.9 Type 2 diabetes mellitus without complications; Z87.891 Personal history of nicotine dependence; E66.01 Morbid (severe) obesity due to excess calories; Z68.41 Body mass index [BMI] 40.0-44.9, adult
CPT/HCPCS: 45385; 45381; 82948; 88305; J2003; J2704; J7120

== ENCOUNTER 2024-11-25 09:22 | Outpatient (CLI) | payer OTHER, SELFPAY ==
--- NOTE | ~2024-11-25 | CT_ITS ---
CT Scan of the Chest without Contrast: Clinical Indication: Lung cancer screening, nicotine dependence Technique: Contiguous sections were acquired throughout the chest without intravenous contrast. Dose reduction technique was used on this scan by utilizing automated exposure control and iterative recon struction technique. The dose-length product (DLP) was 327.39 mGy-cm. COMPARISON: 10/28/2023 Findings: Mildly prominent mediastinal lymph nodes are stable from prior exam. Coronary artery calcifications a re present. There is no evidence of pleural or pericardial effusion. Severe emphysema present. Stable spiculated nodule at the left lung apex. Stable scarring at the righ t middle lobe. Images through the upper abdomen reveal no abnormalities. Impression: Lung RADS 2: Benign appearance. 12 month follow-up screening CT advised. Severe emphysema stable spiculated nodule at the left lung apex. Reviewed, dictated and finalized at [facility]. Impression: Lung RADS 2: Benign appearance. 12 month follow-up screening CT advised. Severe emphysema stable spiculated nodule at the left lung apex.
--- OUTSIDE RECORDS SUMMARY | 2024-11-25 10:04 | XMS_ITS | Clinical Summary ---
Author Organization [facility] Address [address] [place] [address] Care Team Providers Care Engineering Specialist Name Role Phone Mesfin Mitchell MD Primary Care Provider [phone] Source Comments [facility],non-owned Affiliates and Associated Physician Practices is amultiple site organization consisting of ambulatory clinics and hospital sitesin [place], [place], [place] and [place]. This disclosure is being madepursuant to the Care Everywhere program and may not contain all information available regarding this patient. Last updated 18.[facility] Citizen Allergies No known active allergies Medications * [...] complete this topic MENINGOCOCCAL (Group B) VACCINE SHARED DECISION-MAKING Aged Out No longer eligible based on patient's age to complete this topic MENINGOCOCCAL GROUPS A/C/Y/W VACCINE Aged Out No longer eligible b ased on patient's age to complete this topic PNEUMOCOCCAL VACCINE Aged Out No long er eligible based on patient's age to complete this topic Care Teams Engineering Specialist Relationship Specialty Start Date End Date Mesfin Mitchell MD [address] [place] [address] [address] [place] [address] PCP - General 04/03/17
--- OUTSIDE RECORDS SUMMARY | 2024-11-25 10:04 | XMS_ITS | Clinical Summary ---
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 Gender Identity Not on file Sexual Orientation Not on file Obstetrics History Last Filed Vital Signs Vital Sign Reading Time Taken Comments Blood Pressure 101/57 10/26/2021 6:00 PM POOL HALL INSPECTOR Pulse 90 10/26/2021 6:00 PM POOL HALL INSPECTOR Temperature 36.5 C (97.7 F) 09/05/2017 9:43 AM POOL HALL INSPECTOR Respiratory Rate 17 10/26/2021 6:00 PM POOL HALL INSPECTOR Oxygen Saturation 98% 10/26/2021 6:00 PM POOL HALL INSPECTOR Inhaled Oxygen Concentration - - Weight 122.2 [...] Tdap) 04/09/2030 Medical Devices Implanted Type Area Technical Instructor Course Developer Device Identifier Shelf Expiration Date Model / Serial / Lot Synthes 02.110.152 Lcp 112mm Fusion Wrist Straight Plate Bone Stainless Steel - [id number] Implanted:Qty: 1 on 10/26/2021 by Rowdy Grant MD at [facility] Plate Left: Wrist Synthes I 02.110.152 / / Synthes 202.872 2.7mm 5mm 12mm 2.5mm Self Tap Stardrive Cortical T8 Screw Bone - [id number] Implanted:Qty: 1 on 10/26/2021 by Rowdy Grant MD at [facility] Screw Left: Wrist Synthes I 202.872 / / Synthes 202.220 2.7mm 2.1mm 20mm Self Tap Lock Stardrive Thread Head Profile T8 - [id number] Implanted:Qty: 1 on 10/26/2021 by Rowdy Grant MD at [facility] Screw Left: Wrist Synthes I 202.220 / / Synthes 202.216 2.7mm 2.1mm 16mm Self Tap Lock Stardrive Thread Head Profile T8 - [id number] Implanted:Qty: 1 on 10/26/2021 by Rowdy Grant MD at [facility] Screw Left: Wrist Synthes I 202.216 / / Synthes 212.104 3.5mm 2.9mm 16mm Self Tap Lock Stardrive Conical Head T15 Full - [id number] Implanted:Qty: 2 on 10/26/2021 by Rowdy Grant MD at [facility] Screw Left: Wrist Synthes I 212.104 / / Synthes 02.200.018 3.5mm 6mm 18mm Self Tap Low Profile Stardrive Cortex T15 Full - [id number] Implanted:Qty: 1 on 10/26/2021 by Rowdy Grant MD at [facility] Screw Left: Wrist Synthes I 018 / / Synthes 3.5mm 6mm 16mm Self Tap Low Profile Stardrive Cortex T15 Full - [id number] Implanted:Qty: 1 on 10/26/2021 by Rowdy Grant MD at [facility] Screw Left: Wrist Synthes I 016 / / Insurance [facility] [facility] Care Teams Water Plant Operator Relationship Specialty Start Date End Date Mesfin Mitchell MD PCP - General 01/11/21 Mesfin Mitchell MD Emergency Medicine 01/11/21
--- OUTSIDE RECORDS SUMMARY | 2024-11-25 10:04 | XMS_ITS | Clinical Summary ---
Author Organization [facility] Angela Fraire Address [address] [place] [address] Care Team Providers Care Aluminizer Name Role Phone Unavailable Primary Care Provider [...] Comments Blood Pressure 123/77 08/28/2023 2:28 PM MINERAL ENGINEER Pulse 103 08/28/2023 2:28 PM MINERAL ENGINEER Temperature 36.9 C (98.4 F) 08/28/2023 2:28 PM MINERAL ENGINEER Respiratory Rate 18 08/28/2023 2:28 PM MINERAL ENGINEER Oxygen Saturation 95% 08/28/2023 2:28 PM MINERAL ENGINEER Inhaled Oxygen Concentration - - Weight 120.8 kg (266 lb 6.4 oz) 08/28/2023 2:28 PM MINERAL ENGINEER Height - - Body Mass Index - [...] T d or Tdap) 04/09/2030 04/09/2020 Insurance [facility] MEDICAID
--- OUTSIDE RECORDS SUMMARY | 2024-11-25 10:04 | XMS_ITS | Referral Summary ---
Author Organization 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 Gender Identity Not on file Sexual Orientation Not on file Last Filed Vital Signs Vital Sign Reading Time Taken Comments Blood Pressure 101/57 10/26/2021 6:00 PM MOLDING ENGINEER Pulse 90 10/26/2021 6:00 PM MOLDING ENGINEER Temperature 36.5 C (97.7 F) 09/05/2017 9:43 AM MOLDING ENGINEER Respiratory Rate 17 10/26/2021 6:00 PM MOLDING ENGINEER Oxygen Saturation 98% 10/26/2021 6:00 PM MOLDING ENGINEER Inhaled Oxygen Concentration - - Weight 122.2 kg (269 lb 6.4 oz) 02/26/2022 1:12 PM CDT Height 167.6 cm (5' 6 ) 02/26/2022 1:12 PM CDT Body Mass Index 43.48 02/26/2022 1:12 PM CDT Plan of Treatment Not on file Medical Devices Implanted Type Area Facing Slitter Device Identifier Shelf Expiration Date Model / Serial / Lot Synthes 02.110.152 Lcp 112mm Fusion Wrist Straight Plate Bone Stainless Steel - [id number] Implanted:Qty: 1 on 10/26/2021 by Rowdy Grant MD at [facility] Plate Left: Wrist Synthes I 02.110.152 / / Synthes 202.872 2.7mm 5mm 12mm 2.5mm Self Tap Stardrive Cortical T8 Screw Bone - [id number] Implanted:Qty: 1 on 10/26/2021 by Rowdy Grant MD at [facility] Screw Left: Wrist Synthes I 202.872 / / Synthes 202.220 2.7mm 2.1mm 20mm Self Tap Lock Stardrive Thread Head Profile T8 - [id number] Implanted:Qty: 1 on 10/26/2021 by Rowdy Grant MD at [facility] Screw Left: Wrist Synthes I 202.220 / / Synthes 202.216 2.7mm 2.1mm 16mm Self Tap Lock Stardrive Thread Head Profile T8 - [id number] Implanted:Qty: 1 on 10/26/2021 by Rowdy Grant MD at [facility] Screw Left: Wrist Synthes I 202.216 / / Synthes 212.104 3.5mm 2.9mm 16mm Self Tap Lock Stardrive Conical Head T15 Full - [id number] Implanted:Qty: 2 on 10/26/2021 by Rowdy Grant MD at [facility] Screw Left: Wrist Synthes I 212.104 / / Synthes 02.200.018 3.5mm 6mm 18mm Self Tap Low Profile Stardrive Cortex T15 Full - [id number] Implanted:Qty: 1 on 10/26/2021 by Rowdy Grant MD at [facility] Screw Left: Wrist Synthes I 02.200.018 / / Synthes 02.200.016 3.5mm 6mm 16mm Self Tap Low Profile Stardrive Cortex T15 Full - [id number] Implanted:Qty: 1 on 10/26/2021 by Rowdy Grant MD at [facility] Screw Left: Wrist Synthes I 02.200.016 / / Insurance [facility] Care Teams Pipe Recovery Specialist Relationship Specialty Start Date End Date Mesfin Mitchell MD PCP - General 01/11/21 Mesfin Mitchell MD Emergency Medicine 01/11/21
--- OUTSIDE RECORDS SUMMARY | 2024-11-25 10:04 | XMS_ITS | Patient Health Summary ---
Author Organization [facility] Address [address] [place] [address] Care Team Providers Care Change Management Name Role Phone Mesfin Mitchell MD Primary Care Provider [phone] Note from [facility],non-owned Affiliates and Associated Physician Practices is amultiple site organization consisting of ambulatory clinics and hospital sitesin [place], [place], [place] and [place]. This disclosure is being madepursuant to the Care Everywhere program and may not contain all information available regarding this patient. Last updated 18.[facility] Allergies No known active allergies Medications * [...] Pain in both knees, unspecified chronicity * MN DRAIN/INJECT LARGE JOINT/BURSA(Performed 09/22/2018) Performed for Primary osteoarthritis of right knee * XR KNEE RIGHT 4VW OR MORE(Performed 09/22/2018) Performed for Right knee pain, unspecified chronicity * MN DRAIN/INJECT LARGE JOINT/BURSA(Performed 08/13/2018) Performed for Primary osteoarthritis of left knee * XR KNEE RIGHT 4VW OR MORE(Performed 08/11/2018) Performed for Right knee pain, unspecified chronicity * IR NERVE BLOCK L OR S UNILAT(Performed 03/28/2018) Performed for Chronic left-sided low back pain, with sciatica presence unspecified * MN DRAIN/INJECT LARGE JOINT/BURSA(Performed 03/04/2018) Performed for Primary [...] compartment. Report dictated by David Rush MD (radiology nurse). I, Micha Fleming MD have personally reviewed and interpreted this examination/study. > Interpreting Provider: Micha Fleming MD on 03/21/2023 9:12 AM Narrative 03/21/2023 9:12 AM CDT PROCEDURE: XR KNEE LEFT 4VW OR MORE, DATE/TIME OF EXAM: 03/21/2023 9:02 AM, LOCATION [facility] INDICATION: M25.561: Pain in both knees, unspecified chronicity M25.562: Pain in both knees, unspecified chronicity ADDITIONAL CLINICAL INFORMATION: Ordering Provider Reason For Exam: PAIN COMPARISON: Left knee x-ray from 03/04/2018. FINDINGS: Redemonstrated osteoarthritis of the knee, most significant in the medial compartment where there is severe joint space narrowing and nivi-ru-sphx contact. Osteophytes are noted in the all compartments. No acute fracture. A small effusion. Procedure Note Micha Fleming MD - 03/21/2023 PROCEDURE: XR KNEE LEFT 4VW OR MORE, DATE/TIME OF EXAM: 03/21/2023 9:02AM, LOCATION [facility] INDICATION: M25.561: Pain in both knees, unspecified chronicity M25.562: Pain in both knees, unspecified chronicity ADDITIONAL CLINICAL INFORMATION: Ordering Provider Reason For Exam: PAIN COMPARISON: Left knee x-ray from 03/04/2018. FINDINGS: Redemonstrated osteoarthritis of the knee, most significant in themedial compartment where there is severe joint space narrowing and kwyo-ay-kwzq contact. Osteophytes are noted in the all compartments. No acutefracture. A small effusion. IMPRESSION: Osteoarthritis, severe in the medial compartment. Report dictated by David Rush MD (radiology nurse). Micha Reeves MD have personally reviewed and [...] compartment. Report dictated by David Rush MD (radiology nurse). Micha Reeves MD have personally reviewed and interpreted this examination/study. > Interpreting Provider: Micha Fleming MD on 03/21/2023 9:11 AM Narrative 03/21/2023 9:11 AM CDT PROCEDURE: XR KNEE RIGHT 4VW OR MORE, DATE/TIME OF EXAM: 03/21/2023 9:01 AM, LOCATION [facility] INDICATION: M25.561: Pain in both [...] DATE/TIME OF EXAM: 03/21/2023 9:01 AM, LOCATION [facility] INDICATION: M25.561: Pain in both [...] compartment. Report dictated by David Rush MD (radiology nurse). I, Micha Fleming MD have personally reviewed and interpreted this examination/study. > Interpreting Provider: Micha Fleming MD on 03/21/2023 9:11 AM Jocelyn Sherman MD DIAGNOSTIC IMAGING O RDERABLES * MN DRAIN/INJECT LARGE JOINT/BURSA (09/22/2018 10:42 PM DRUG ABUSE TREATMENT SPECIALIST) Narrative Rosalie Tinoco PA-C - 09/22/2018 10:42 PM DRUG ABUSE TREATMENT SPECIALIST Rosalie Tinoco PA-C 09/22/2018 10:42 PM Orthopaedic [...] Rosalie Tinoco PA-C PROCEDURE/MINOR SURGICAL ORDERABLES * MN DRAIN/INJECT LARGE JOINT/BURSA (08/13/2018 10:08 PM DRUG ABUSE TREATMENT SPECIALIST) Narrative Rosalie Tinoco PA-C - 08/13/2018 10:08 PM DRUG ABUSE TREATMENT SPECIALIST Rosalie Tinoco PA-C 08/13/2018 10:08 PM Orthopaedic [...] 5 ml of 1 % lidocaine Procedure: 1.Cargoman radiograph of the lumbar spine. 2.Fluoroscopic-guided transforaminal [...] draped in the usual sterile manner. A life skills teacher radiograph of the lumbar spine was obtained, [...] 5 ml of 1 % lidocaine Procedure: 1.Cargoman radiograph of the lumbar spine. 2.Fluoroscopic-guided transforaminal [...] draped in the usual sterile manner. A life skills teacher radiograph of the lumbar spine was obtained, [...] . Rosalie Tinoco PA-C IR ORDERABLES * MN DRAIN/INJECT LARGE JOINT/BURSA (03/04/2018 12:30 PM CDT) [...] PA-C DIAGNOSTIC IMAG ING ORDERABLES Care Teams Change Management Relationship Specialty Start Date End Date Mesfin Mitchell MD [facility] [address] [address] PCP - General 04/03/17
--- OUTSIDE RECORDS SUMMARY | 2024-11-25 10:04 | XMS_ITS | Referral Summary ---
Author Organization [facility] Address [address] [place] [address] Care Team Providers Care Dry Transfer Man Name Role Phone Mesfin Mitchell MD Primary Care Provider [phone] Source Comments [facility],non-owned Affiliates and Associated Physician Practices is amultiple site organization consisting of ambulatory clinics and hospital sitesin [place], [place], [place] and [place]. This disclosure is being madepursuant to the Care Everywhere program and may not contain all information available regarding this patient. Last updated 18.[facility] Allergies No known active allergies Medications * [...] of Treatment Not on file Care Teams Dry Transfer Man Relationship Specialty Start Date End Date Mesfin Mitchell MD [address] [place] [address] PCP - General 04/03/17
--- OUTSIDE RECORDS SUMMARY | 2024-11-25 10:04 | XMS_ITS | Continuity of Care Document ---
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 Name Role Phone Edwin Shepherd MD Unavailable Unavailable Allergies, Adverse Reactions, Alerts Substance Reaction Status Criticality No Known Allergies Active No Inform ation Medications Medication Instructions Dosage Effective Dates (start - stop) Status Comments [place] 10 mg-325 mg tablet take 1 tablet by oral route every 4 hours as needed for pain - Active PRN for pain, avoid driving or operate machines Zantac 300 mg tablet take 1 tablet by oral route every day at bedtime - Active Wellbutrin XL 150 mg 24 hr tablet, extended release take 1 tablet by oral route every morning 150 MG - Active omeprazole 20 mg capsule,delayed release take 1 capsule by oral route every day before a meal 20 MG - Active Norvasc 10 mg tablet take 1 tablet by oral route every day 10 MG - Active losartan 100 mg-hydrochlorothi azide 25 mg tablet take 1 tablet by oral route every day 1.00 tablet - Active Procedures Procedure Date OFFICE/OUTPATIENT VISIT, EST OFFICE/OUTPATIENT VISIT, EST OFFICE/OUTPATIENT VISIT, EST OFFICE/OUTPATIENT VISIT, EST OFFICE/OUTPATIENT VISIT, EST OFFICE/OUTPATIENT VISIT, EST PREV VISIT, EST, AGE 40-64 OFFICE/OUTPATIENT VISIT, EST OFFICE/OUTPATIENT VISIT, EST OFFICE/OUTPATIENT VISIT, EST OFFICE/OUTPATIENT VISIT, EST OFFICE/OUTPATIENT VISIT, EST OFFICE/OUTPATIENT VISIT, EST OFFICE/OUTPATIENT VISIT, EST PREV VISIT, NEW, AGE 40-64 Advance Directives Directive Yes / No Effective Date File Name No Information Encounters Encounter Description Practice Location Reason(s) For Visit Diagnoses Date Provider Providers Copied on Encounter OFFICE/OUTPA TIENT VISIT, [facility], [address], [place], [place], [address], tel:[phone] [facility] LBP (chief complaint) HTN (chief complaint) BPH (chief complaint) sleep apnea1 (chief complaint) Solomon (chief complaint) Sleep apneaBarrett's esophagus without dysplasiaLumbagoEss ential (primary) hypertension 7 Joao Pineda. [address], [place], [place], [address] , [place]. tel:[phone] Referring Provider: Jonathan Gomez [address], [place], [place], [address]. tel:[phone] OFFICE/OUTPA TIENT VISIT, [facility], [address], [place], [place], [address], [place] tel:[phone] [facility] LBP1 (chief complaint) Solomon (chief complaint) anxiety1 (chief complaint) sick (chief complaint) LumbagoBarrett's esophagus without dysplasiaGeneralize d Anxiety DisorderBody mass index (BMI) 35.0-35.9, adult 6 Joao Pineda. [address], [place], [place], [address] , [place]. tel:[phone] Referring Provider: Jonathan Gomez [address], [place], [place], [address]. tel:[phone] OFFICE/OUTPA TIENT VISIT, [facility], [address], [place], [place], [address], [place] tel:[phone] [facility] GERD1 (chief complaint) HTN (chief complaint) sleep apnea (chief complaint) back pian1 (chief complaint) Essential (primary) hypertensionBarrett 's esophagus without dysplasiaLumbagoSle ep apnea 6 Joao Pineda. [address], [place], [place], [address] , [place]. tel:[phone] Referring Provider: Edwin Shepherd, [address], [place], [place], [address]. tel:[phone] [facility], [address], [place], [place], [address], [place] tel:[phone] [facility] No Information 6 Joao Pineda. [address], [place], [place], [address] , [place]. tel:[phone] OFFICE/OUTPA TIENT VISIT, [facility], [address], [place], [place], [address], [place] tel:[phone] [facility] knee pain1 (chief complaint) HLP (chief complaint) preDM (chief complaint) Solomon (chief complaint) Solomon's esophagus without dysplasiaAnemiaHype rlipidemiaMetabolic syndrome 6 Joao Pineda. [address], [place], [place], [address] , [place]. tel:[phone] Referring Provider: Edwin Shepherd, [address], [place], [place], [address]. tel:[phone] OFFICE/OUTPA TIENT VISIT, [facility], [address], [place], [place], [address], [place] tel:[phone] [facility] HTN (chief complaint) knee pain1 (chief complaint) anemia1 (chief complaint) Essential (primary) hypertensionAnemiaP ain in left kneeHyperlipidemia 6 Joao Pineda. [address], [place], [place], [address] , [place]. tel:[phone] Referring Provider: Jonathan Gomez [address], [place], [place], [address]. tel:[phone] OFFICE/OUTPA TIENT VISIT, EST [facility], [address], [place], [place], [address], [place] tel:[phone] [facility] HTn (chief complaint) GERD1 (chief complaint) chronic pain1 (chief complaint) COPD1 (chief complaint) Essential (primary) hypertensionBarrett 's esophagus without dysplasiaChronic pain syndromeCOPD 5201 6 Joao Pineda. [address], [place], [place], [address] , [place]. tel:[phone] Referring Provider: Jonathan Gomez [address], [place], [place], [address]. tel:[phone] PREV VISIT, EST, AGE 40-64 [facility], [address], [place], [place], [address], [place] tel:[phone] [facility] Pneumonia (chief complaint) Encounter for general adult medical exam w abnormal findingsPneumoniaAn emiaElevated C-reactive protein (CRP) Nov-2 6 Joao Pineda. [address], [place], [place], [address] , [place]. tel:[phone] Referring Provider: Jonathan Gomez [address], [place], [place], [address]. tel:[phone] OFFICE/OUTPA TIENT VISIT, EST [facility], [address], [place], [place], [address], [place] tel:[phone] [facility] sleep apnea (chief complaint) tobacco (chief complaint) joint pain1 (chief complaint) SOB (chief complaint) Other sleep apneaTobacco useEdemaPain in joint Nov-0 2201 6 Joao Pineda. [address], [place], [place], [address] , [place]. tel:[phone] Referring Provider: Jonathan Gomez [address], [place], [place], [address]. tel:[phone] OFFICE/OUTPA TIENT VISIT, EST [facility], [address], [place], [place], [address], [place] tel:[phone] [facility] hernia1 (chief complaint) HTN1 (chief complaint) elbow pain1 (chief complaint) tobacco1 (chief complaint) Essential (primary) hypertensionPain in lt elbowOther sleep apneaTobacco use 6 Joao Pineda. [address], [place], [place], [address] , [place]. tel:[phone] Referring Provider: Jonathan Gomez [address], [place], [place], [address]. tel:[phone] OFFICE/OUTPA TIENT VISIT, [facility], [address], [place], [place], [address], [place] tel:[phone] [facility] HTN (chief complaint) sleep apnea1 (chief complaint) cardiac1 (chief complaint) testicular pain1 (chief complaint) Other sleep apneaOther testicular dysfunctionEssentia l (primary) hypertensionEdema Joao Albright [address], [place], [place], [address] , [place]. tel:[phone] Referring Provider: Jonathan Gomez [address], [place], [place], [address]. tel:[phone] OFFICE/OUTPA TIENT VISIT, [facility], [address], [place], [place], [address], [place] tel:[phone] [facility] urinary frequency (chief complaint) urine (chief complaint) urinary frequency1 (chief complaint) snoring (chief complaint) Dietary surveillance and counselingUnspecifi ed essential hypertensionUnspeci fied sleep apneaUrinary frequency 5 Joao Pineda. [address], [place], [place], [address] , [place]. tel:[phone] Referring Provider: Jonathan Gomez [address], [place], [place], [address]. tel:[phone] OFFICE/OUTPA TIENT VISIT, [facility], [address], [place], [place], [address], [place] tel:[phone] [facility] HTN (chief complaint) hand pain (chief complaint) BPH (chief complaint) depression (chief complaint) Dietary surveillance and counselingPain in limbUnspecified essential hypertensionChronic depressionBPH 5 Joao Pineda. [address], [place], [place], [address] , . tel:[phone] Referring Provider: Edwin Shepherd, Jonathan [facility], [place], [place], [address]. tel:[phone] OFFICE/OUTPA TIENT VISIT, [facility], [address] [place], [address], [place] tel:[phone] [facility] HLP (chief complaint) vitamin D (chief complaint) hand pain (chief complaint) HTN (chief complaint) BPH (chief complaint) depression (chief complaint) Dietary surveillance and counselingOther and unspecified hyperlipidemiaHyper tension, UnspecifiedPain in limbSleep Apnea 5 Joao Pineda. [address], [place], [place], [address] , [place]. tel:[phone] Referring Provider: Jonathan Gomez [facility] [address], [place], [place], [address]. tel:[phone] PREV VISIT, NEW, AGE 40-64 [facility], [address] [place], [address], [place] tel:[phone] [facility] Physical (chief complaint) Dietary surveillance and counselingRoutine Medical ExamRoutine Medical Exam 5 Joao Pineda. [address], [place], [address] , [place]. tel:[phone] Family History Family Member Type Diagnosis Age At Onset Brother Problem (finding) Alive and well Father Problem (finding) Cancer, esophageal Father Problem (finding) Coronary artery disease Brother Problem (finding) Hypertension Mother Problem (finding) Hypertension Payers Payer name Insurance type Covered democrat ID Authoriza tion(s) No Information Social History Type Description Quantity Date Captured Comments Alcohol Use Details Caffeine Use Details Unknown Tobacco Use Status Smoker Smoking Status Current some day smoker 017 Sex Male Vital Signs Date / Time: Height Weight BMI Pulse Rate Blood Pressure Temperature Respiratory Rate Body Surface Area Head Circumference BMI percentile Pulse Ox Inhaled Ox 3:54 PM 172.72 cm 241.00 lbs 36.6 4 kg/m eter (2) 103 /min 147/96 mm[Hg] 98.5 F 18 /min Chief Complaint And Reason For Visit From encounter dated '11/05/2016 15:53'. LBP (chief complaint). Description: Pt has chronic low back pain. Pt denie any wrosening pain or any loss of bowel o bladder control. Pt denie any sciatica HTN (chief complaint). Description: Pt taks losartan,hctz and also norvasc His BP is borderline today. Pt denies any laura pain or headache BPH (chief complaint). Description: Additional information: Pt has history of BPH. Pt notices of weak stream and frequent urination at night Pt also drinks a lot of water at night. Pt denies any UTI symptoms. sleep apnea1 (chief complaint). Description: Pt has sleep apnea. Pt uses CPAP nightly .Pt feels well Pt denies any snoring Solomon (chief complaint). Description: Pt has Scar. Pt takes omepraole and zantac. Pt doing ok Pt denies any abd pain or GERD symptoms Plan Of Treatment Date Type Action Status Goal Tobacco cessation counseling completed Goal Tobacco cessation counseling completed Referral Ordered: Physical Therapy (related to Lumbago) ordered Referral Referred To: Physical Therapy Ordered: Referrals: Physical Therapy. Evaluate and treat ordered Referral Ordered: LUMBAR XRAY AP AND LAT ONLY ordered Referral Ordered: [facility] Jiménez (related to Metabolic syndrome) ordered Referral Ordered: MRI LOWER EXTREMITY W/O DYE Left knee ordered Referral Ordered: AP PELVIS AND BILATERAL HIPS XRAY ordered Referral Ordered: OPERATIVE UPPER GI ENDOSCOPY ordered Referral Ordered: CHEST X-RAY PA/LAT TWO-VIEWS ordered Referral Ordered: Montana Jiménez (related to Pain in lt elbow) ordered Referral Ordered: ELBOW XRAY Bilateral ordered Referral Referred To: Montana Jiménez [address] [place], [id number] Ordered: Referrals: Montana Jiménez. Evaluate and treat ordered Referral Ordered: Cardiology (related to Essential (primary) hypertension) ordered Referral Ordered: Alonso Jones (related to Other sleep apnea) ordered Referral Ordered: Referrals: Cardiology. Evaluate and treat ordered Referral Referred To: Alonso Jones [address] [place], [id number] Ordered: Referrals: Alonso Jones. Evaluate and treat ordered Referral Ordered: PHIL MURRELL (related to Urinary frequency) ordered Referral Ordered: DOPPLER ECHO EXAM, HEART ordered Referral Referred To: PHIL MURRELL [address] [place], [place], [id number] Ordered: Referrals: PHIL MURRELL. Evaluate and treat ordered Referral Ordered: Plastic Surgery (related to Pain in limb) ordered Referral Ordered: US TESTES-SCROTAL ordered Referral Ordered: Referrals: Plastic Surgery ordered Referral Ordered: Pulmonary Diseases (related to Sleep apnea) ordered Referral Ordered: HAND XRAY, TWO VIEW Bilateral ordered Referral Ordered: Referral: Pulmonary Diseases. ordered Referral Ordered: MOTOR NERVE CONDUCTION TEST ordered Referral Ordered: COLONOSCOPY AND BIOPSY ordered History Of Present Illness Encounter Date Complaint History Of Prese nt Illness Solomon Pt has Scar. P t takes omepraole and zantac. 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 Pt notices of weak stream and frequent urination at night Pt also drinks a lot of water at night. Pt denies any UTI symptoms. HTN Pt taks losartan ,hctz and also norvasc His BP is borderline today. Pt denies any laura pain or headache LBP Pt has chronic l ow back pain. Pt denie any wrosening pain or any loss of bowel o bladder control. Pt denie any sciatica sick Pt has sinus con gestion, coughing with phelgm sore throat for one week. Pt failed OTC meds. Pt told me he had subjecitve fever yesterday anxiety1 Pt has chronic a nxiety and depression. Pt takes wellbutirn and is helping. Pt denies any suicidal or homicidal thought. Pt denies any crying spells Solomon Pt has been taki ng omeprzole daily and he started zantac last month and is helping his GERD symptoms pt denies any abd pain or GERd while on meds. LBP1 pt has chronic l ow back pain. Pt denies any sciatica or any loss of bowel or bladder control. Pt has 5/10 pain. Pt unable to tolerate NSAID. Xray showed some spondylosis back pian1 Pt has chronic l ow back pain for years. Pt denies any injury. Pt notices mild right sciatica Pt denies any numnbess. Pt recently did some ceiling tile and he injuried his low back again since last week Pt c/o 8/10 pain initially, currently pt has 4/10 pain Pt denies any loss of bowel or bladder control sleep apnea Relevant history : a BMI of 35.27. Additional information: pt has sleep apnea Pt has been using CPAP nightly Pt uses at least 4-5 hours of CPAP nightly. Pt feels better and less fatigue in morning. HTN Pt takse losarta n and norvasc and his bp is stable GERD1 Pt has solomon. Pt takes 40 mg omeprazole and he still has almost daily GERD. Pt sometimes has tot celia 80 mg omeprazole. Pt denies any abd pain Solomon Pt is on omepraz ole from GI for solomon and esophagitis. Pt denies any abd pain or GERd symptoms preDM Pt does not have DM. Pt is prediabetic Pt is on low fat and low carb diet. Pt has been trying to exercise HLP Pt has mild high TG Pt is on low fat and low carb diet knee pain1 Pt has chronic l eft knee pain. Pt has severe chondrosis on MRi. Pt notices mild swelling at times. Pt denies any injury HTN P thas hTN. Pt t akes norvasc and losartna.HCTZ and his BP is stable. Pt denies any chest pain or headache knee pain1 Pt c/o bilateral knee pain and also hip pain. Pt has arthritis on hip and knee xray normal. Pt takes norco PRN for pain and doing better anemia1 Pt has mild anem ia and high gluocse and high lipid profile on recent lab. HTn Pt has HTN and h e takes losartan.HTZ and also norvasc and his BP is ok today. Pt denies any chest pain or hedache GERD1 Pt just had EGD recently and he has solomon. Pt is on omeprazole 40 mg daily now. Pt supposes to repeat EGD in two years. chronic pain1 Pt has pain arou nd hip , knee and elbow due to arthritis. Pt has carpal tunnel but he does not want surgery. Pt denies any injury COPD1 Pt is seeing jr simms and he is on atrovent and albutero neb and doing ok. Pt denies any worsening SOB Pneumonia Pt recently admi yanely to hospital for pneumonia and copd exacerbation. Pt is on albueterl neb and oxygen. Pt is on atroven neb. Pt is on oxygen at night. Pt just finished augmentin. Pt still rattling in his lung. Pt denies any fever, chill. Pt c/o persistent cough with clear phlegm. Pt also had lab done which showed mildly elevaetd CRP, low D, DM, elevated TG and mild anemia Pt no longer smoking. Pt is still on patch. Pt c/o chronic GERD symptoms. Pt denies any acute abd pain or any symptoms Pt denies any other complaints SOB Pt feels SOB all the time. Exertion makes it worse. Pt had PFT done which could be signs of early COPD joint pain1 Pt c/o bilatearl hip and knee pain for 2 months Pt is concerned about lyme disease. Pt has multiple tick bite in the past .Pt denies any injury tobacco Pt has been usin g nicoderm 21 mg. Pt is out of the patch for several days. Pt smokes about 4 cig per day. Pt wants to continue on patch sleep apnea Relevant history : a BMI of 32.92. Additional information: Pt has been using CPAP nightly throughout the night. Pt feels more rested Pt denies any snoring. Pt feels more rested in the morning. Pt tolerating CPAP ok. hernia1 Pt has bilateral inguinal hernia and he will have surgery by Dr. Robert null. pt has chronic left testicular pain and he has appointmetn with Dr. Murrell next week. Pt denies any worsening pain HTN1 Pt takes losarta n.HCTZ and norvasc and his BP is stalbe. Pt denies any chset pain or headache. elbow pain1 Pt c/o bilateral elbow throbbing pain for two month. pt denies any radiation of pain down to hand Pt had negative NCS last year. Pt has arthritis of hand per Dr. Valdovinos. tobacco1 Pt smokes about tobacco for one pack per day Pt denies any SOB testicular pain1 Pt has chronic left testicular pain and swelling. Pt appears to have hydrocele and left inguinal hernia Pt denies any inguinal pain. Pt has not made appointemnt with Dr. Luna yet cardiac1 Pt has dilated a ortic root on cardiac echo. Pt has mild chronic LE edema. Pt denies any chest pain or SOB sleep apnea1 Pt does have sle ep apnea. Pt snores and has diffiuclty with breathing at night Pt has CPAP study set up later this week HTN Pt takes losarta n and norvac. His BP is still high. Pt denies any ches tpain or headache urine urinary frequency1 Pt has chroni c frequent urination at night. Pt wakes up at least 3-4 at night to go urinate. Pt denies any slow or weaker stream. Pt denies any UTI symptoms. Pt denies any urgency .Pt denies any SOB at night. Pt denies any chest pain urinary frequency Pertinent nega tives include constipation, diarrhea, vomiting, dysuria, hematuria or slow stream. snoring Pertinent negati ves include nasal drainage. Additional information: Pt snores very loudly at night and he feels very tired the next day. Pt has above symptoms for several years. HTN Pt takes norvasc and his BP is still mildly high today. Pt denies any chest apin hand pain Location: hand. Additional information: Pt has some arthritis on hand xray Pt denies any hand numbness. Pt c/o hand pain. No swelling or injury. BPH Additional infor mation: Pt notices weak urine stream. Pt takes flomax which helps. Pt sophy any UTI symptoms. depression Additional infor mation: Pt has chronic anxiety and depression. Pt takes wellbutrin. Pt denies any suicidasl thought. Instructions Date Instruction Additional Infor mation Prescribed Activity and Exercise Education Related to Dietary Surveillance and Counseling Prescribed Diet Educ ation/Lifestyle Education Regarding Diet Related to Dietary Surveillance and Counseling Prescribed Activity and Exercise Education Related to Dietary Surveillance and Counseling Prescribed Diet Educ ation/Lifestyle Education Regarding Diet Related to Dietary Surveillance and Counseling Prescribed Activity and Exercise Education Related to Dietary Surveillance and Counseling Prescribed Diet Educ ation/Lifestyle Education Regarding Diet Related to Dietary Surveillance and Counseling Prescribed Activity and Exercise Education Related to Dietary Surveillance and Counseling Prescribed Diet Educ ation/Lifestyle Education Regarding Diet Related to Dietary Surveillance and Counseling Prescribed Diet Educ ation/Lifestyle Education Regarding Diet Related to Dietary Surveillance and Counseling Prescribed Activity and Exercise Education Related to Dietary Surveillance and Counseling Prescribed Activity and Exercise Education Related to Dietary Surveillance and Counseling Prescribed Diet Educ ation/Lifestyle Education Regarding Diet Related to Dietary Surveillance and Counseling Prescribed Activity and Exercise Education Related to Dietary Surveillance and Counseling Prescribed Diet Educ ation/Lifestyle Education Regarding Diet Related to Dietary Surveillance and Counseling Prescribed Diet Educ ation/Lifestyle Education Regarding Diet Related to Dietary Surveillance and Counseling Prescribed Activity and Exercise Education Related to Dietary Surveillance and Counseling Prescribed Activity and Exercise Education Related to Dietary Surveillance and Counseling Prescribed Diet Educ ation/Lifestyle Education Regarding Diet Related to Dietary Surveillance and Counseling Prescribed Diet Educ ation/Lifestyle Education Regarding Diet Related to Dietary Surveillance and Counseling Prescribed Activity and Exercise Education Related to Dietary Surveillance and Counseling Prescribed Diet Educ ation/Lifestyle Education Regarding Diet Related to Dietary Surveillance and Counseling Prescribed Activity and Exercise Education Related to Dietary Surveillance and Counseling Prescribed Activity and Exercise Education Related to Dietary Surveillance and Counseling Prescribed Diet Educ ation/Lifestyle Education Regarding Diet Related to Dietary Surveillance and Counseling Physical activity counseling Rel ated to Dietary surveillance counseling Decrease caloric intake Related to Dietary surveillance counseling Decrease caloric intake Related to Dietary surveillance counseling Physical activity counseling Rel ated to Dietary surveillance counseling Assessments Type Assessment Date assessment Sleep apnea assessment Solomon's esophagus without dysp lasia assessment Lumbago assessment Essential (primary) hypertension Mental Status Date Cognitive Assessment Orientation - Dillwyn ed to time, place, person, situation.
--- OUTSIDE RECORDS SUMMARY | 2024-11-25 10:04 | XMS_ITS | CONTINUITY OF CARE DOCUMENT ---
Author Name joseph ruiz Address Unknown Organization [facility] Address [address] [place] [address] Phone [phone] Care Team Providers Care Nutrition Consultant Name Role Phone Bakari Perez MD Unavailable [phone] SHEILA HELLER MD Unavailable [phone] SHEILA HELLER MD Unavailable [phone] PROBLEMS Condition Status Date Provider Notes Family History of CVA or Stroke: active ? Murali Perez MD Family History of Hypertension: active ? Mary Perez MD Other symptoms involving car diovascular system active Bakari Perez MD GERD active Bakari Perez MD COPD active Bakari Perez MD HYPERTENSION active Bakari Perez MD Chest pain active Bakari Perez MD TOBACCO ABUSE-QUIT active Bakari Perez MD Sleep apnea--on C-pap active Bakari Stewart Preoperative cardiovascular examination active Bakari Perez MD Arm pain, left active Bakari Perez MD Diabetes mellitus, Type II active Bakari wong MD ENCOUNTERS Date Type Provider Location Encounter Diag nosis 6 - 6 In-person encounter Office Visit Bakari Perez MD [place] [facility] 7 - 7 In-person encounter Office Visit Bakari Perez MD [place] [facility] 3 - 3 In-person encounter Office Visit Bakari Perez MD [place] [facility] TOBACCO ABUSE-QUITDiabetes mellitus, Type II 2 - 2 In-person encounter Office Visit René Malagon MD [place] [facility] 9 - 9 In-person encounter Office Visit Bakari Perez MD [place] [facility] 2 - 3 In-person encounter Office Visit Bakari Perez MD [place] [facility] Arm pain, left 2 - 2 In-person encounter Office Visit Bakari Perez MD [place] [facility] Preoperative cardiovascular examination 4 - 4 In-person encounter Office Visit Bakari Perez MD [place] [facility] 7 - 7 In-person encounter Office Visit Bakari Perez MD [place] [facility] 6 - 7 In-person encounter Office Visit Bakari Perez MD [place] [facility] 6 - 6 In-person encounter Office Visit Bakari Perez MD [facility] Office 9 - 9 In-person encounter Office Visit Bakari Perez MD [place] [facility] Family History of CVA or Stroke:Family History of Hypertension:Other symptoms involving cardiovascular systemGERDCOPDHYPERTENSIONChest painTOBACCO ABUSE-QUITSleep apnea--on C-pap VITAL SIGNS Date Observation Value Provider Body Mass Index (Ratio) 40.29 kg/m2 Mary Perez MD weight E&M 265 [lb_av] Caitlyn Escobar blood pressure, diastolic 83 mm[Hg] An miles Escobar blood pressure, systolic 145 mm[Hg] Sadaf Escobar pulse rate 109 /min Caitlyn Escobar oxygen saturation, oximetry 90 % Caitlyn Escobar blood pressure, cuff size large An miles Escobar height E&M 68 [in_i] Caitlyn Escobar Body Mass Index (Ratio) 41.50 kg/m2 Mary Perez MD blood pressure, cuff size large Alma lundberg [place] blood pressure, diastolic 72 mm[Hg] Alma lundberg [place] blood pressure, systolic 140 mm[Hg] Brian diaz [place] oxygen saturation, oximetry 96 % Sallie Reynolds respiratory rate E&M 16 /min Nichole Reynolds pulse rate 100 /min Sallie stewart weight E&M 273 [lb_av] Sallie stewart height E&M 68 [in_i] Sallie stewart Body Mass Index (Ratio) 40.96 kg/m2 Mary Perez MD blood pressure, diastolic 60 mm[Hg] Nestor hannaKathleenlizzette Whittington blood pressure, systolic 112 mm[Hg] eDb Whittington oxygen saturation, oximetry 96 % Jose R Whittington respiratory rate E&M 16 /min Suzie Whittington pulse rate 100 /min Jose R John juli weight E&M 269.4 [lb_av] Jose R villegason height E&M 68 [in_i] Jose R John juvejuan daniel Body Mass Index (Ratio) 41.35 kg/m2 Shankar Malagon MD respiratory rate E&M 16 /min Fiona Lopez blood pressure, cuff size regular Cy renard Lopez blood pressure, diastolic 78 mm[Hg] Cy renard Lopez blood pressure, systolic 140 mm[Hg] Irasema raymond Lopez oxygen saturation, oximetry 95 % Fiona Lopez pulse rate 99 /min Fiona Campbel l weight E&M 272 [lb_av] Fiona Campbel l height E&M 68 [in_i] Fiona Campbel l Body Mass Index (Ratio) 39.53 kg/m2 Mary Perez MD blood pressure, diastolic 98 mm[Hg] Cy renard Lopez blood pressure, systolic 159 mm[Hg] Irasema raymond Lopez pulse rate 115 /min Fiona yi blood pressure, cuff size regular Cy renard Lopez respiratory rate E&M 20 /min Fiona Lopez oxygen saturation, oximetry 94 % Fiona Lopez weight E&M 260 [lb_av] Fiona yi height E&M 68 [in_i] Fiona yi Body Mass Index (Ratio) 39.68 kg/m2 Mary Perez MD blood pressure, diastolic 76 mm[Hg] Dequan Prather blood pressure, systolic 136 mm[Hg] Cruz Prather weight E&M 261 [lb_av] Steven Prather oxygen saturation, oximetry 94 % Steven Prather pulse rate, standing 104 /min Steven Prather blood pressure, resting Yes [facility] height E&M 68 [in_i] [facility] Body Mass Index (Ratio) 38.46 kg/m2 Mary Perez MD blood pressure, diastolic 80 mm[Hg] Da bo Sky blood pressure, systolic 138 mm[Hg] Dac ia Sky oxygen saturation, oximetry 94 % Meka Sky respiratory rate E&M 18 /min Meka V oss pulse rate 100 /min Meka Sky weight E&M 253 [lb_av] Meka Sky height E&M 68 [in_i] Meka Sky Body Mass Index (Ratio) 38.31 kg/m2 Mary Perez MD blood pressure, diastolic 70 mm[Hg] Ki lleen Preston blood pressure, systolic 118 mm[Hg] Fadumo suarez Preston oxygen saturation, oximetry 95 % Herminia Preston respiratory rate E&M 16 /[facility] 101 [facility] E&M 252 [lb_av] [facility]&M 68 [in_i] [facility] Body Mass Index (Ratio) 37.55 kg/m2 Mary Perez MD blood pressure, cuff size large Ke rri Rola blood pressure, diastolic 80 mm[Hg] Ke rri Rola blood pressure, systolic 136 mm[Hg] Manolo Canela oxygen saturation, oximetry 96 % Juliana Canela respiratory rate E&M 20 /min Juliana koch pulse rate 99 /min Juliana Conway er weight E&M 247 [lb_av] Juliana Conway er height E&M 68 [in_i] Juliana Conway er Body Mass Index (Ratio) 37.40 kg/m2 Mary Perez MD blood pressure, cuff size large Ke rri Waldemarueneoswaldo blood pressure, diastolic 90 mm[Hg] Ke rri Gruenenfconorer blood pressure, systolic 152 mm[Hg] Manolo Canela oxygen saturation, oximetry 92 % Juliana Rola respiratory rate E&M 20 /min Juliana G juliaenenfeldbeverly pulse rate 96 /min Juliana Sherylnfe lder weight E&M 246 [lb_av] Juliana Zoraida er height E&M 68 [in_i] Juliana Conway cary Body Mass Index (Ratio) 37.25 kg/m2 Mary Perez MD blood pressure, diastolic 80 mm[Hg] Robe Mai blood pressure, systolic 143 mm[Hg] Vijay soliman Mai oxygen saturation, oximetry 97 % Tomasa Mai blood pressure, cuff size regular Robe Mai weight E&M 245 [lb_av] Tomasa Mai height E&M 68 [in_i] Tomasa Mai Body Mass Index (Ratio) 37.28 kg/m2 Mary Perez MD blood pressure, diastolic 90 mm[Hg] Nestor Whittington blood pressure, systolic 155 mm[Hg] Deb Whittington respiratory rate E&M 18 /min Suzie Whittington pulse rate 108 /min Jose R bustos weight E&M 245.2 [lb_av] Jose R chandler height E&M 68 [in_i] Jose R bustos ALLERGIES No Known Drug Allergies RESULTS Date Observation Value Provider Reference Range Interpretation Location 0 calcium, serum 9.2 mg/dL [facility] 8.6-10.3 Normal 0 carbon dioxide, venous blood 25 mmol/L [facility] 20-31 Normal 0 chloride, serum 102 mmol/L [facility] 98-110 Normal 0 potassium, serum 4.5 mmol/L [facility] 3.5-5.3 Normal 0 sodium, serum 135 mmol/L [facility] 135-146 Normal 0 urea nitrogen/creati nine ratio, serum NOT APPLICABLE (calc) [facility] 6- 0 Estimated Glomerular Filtration Rate (calc) 120 mL/min/{1.73_m 2} [facility] > OR = 60 Normal 0 creatinine, serum 0.75 mg/dL [facility] 0.70-1.33 Normal 2017/12/2 0 urea nitrogen, blood 8 mg/dL [facility] 7-25 Normal 0 blood glucose, random 113 mg/dL [facility] 65-99 High HISTORY OF MEDICATION USE Medication Status Instructions Dates Provider Indications Com shelley Cardizem CD 120 mg capsule,extended release 24hr active Take 1 capsule by mouth once a day DUE FOR FOLLOW UP Juliana Canela diltiazem HCl (Cardizem CD) 240 mg capsule,extended release 24hr active Take 1 capsule by mouth once a day DUE FOR FOLLOW UP Juliana Waldemarueankita diltiazem HCl (Cardizem CD) 240 mg capsule,extended release 24hr completed Take 1 capsule by mouth once daily - Juliana Grueankita diltiazem HCl (Cardizem CD) 120 mg capsule,extended release 24hr completed Take 1 capsule by mouth once daily - Marcos Sanon Cartia XT 240 mg capsule,extended release 24hr active Take 1 capsule by mouth once daily Crystal Martinez Cardizem CD 120 mg capsule,extended release 24hr completed Take 1 capsule by mouth once a day - Juliana Canela spironolactone 50 mg tablet active Take 1 tablet by mouth once daily Karen Altamiranohiloree losartan 100 mg tablet active Take 1 tablet by mouth once daily Juliana Canela Cardizem CD 120 mg capsule,extended release 24hr completed 1 capsule daily - Diane Kitchen metformin 500 mg tablet active 1 tablet by mouth twice a day Jose R Whittington omeprazole 20 mg capsule,delayed release(DR/EC) active 1 tablet by mouth once a day Jose R Whittignton CARTIA XT 120 MG ORAL CAPSULE EXTENDED RELEASE 24 HOUR completed TAKE 1 CAPSULE BY MOUTH ONCE DAILY (ALONG WITH 240 MG CAPSULE FOR TOTAL DOSE OF 360 MG) - Jose R Whittington ALDACTONE 100 MG ORAL TABLET completed 1/2 TAB DAILY - Bebe PANIAGUA NICOTINE 21 MG/24HR TRANSDERMAL PATCH 24 HOUR completed change once a day - Herminia Preston spironolactone 50 mg tablet completed Take 1 tablet by mouth once a day - Andres Martinez GABAPENTIN 300 MG ORAL CAPSULE completed take one pill twic ea day - Jose R Whittington albuterol sulfate 2.5 mg/3 mL (0.083 %) solution for nebulization active as directed Jose R Whittington IPRATROPIUM-ALBUT JENN 0.5-2.5 (3) MG/3ML INHALATION SOLUTION completed as directed - Jose R Whittington INCRUSE ELLIPTA 62.5 MCG/INH INHALATION AEROSOL POWDER BREATH ACTIVATED completed once daily - JoseR Whittington MONTELUKAST SODIUM 10 MG ORAL TABLET completed once daily - Juliana Canela Cardizem CD 240 mg capsule,extended release 24hr completed Take 1 capsule by mouth once a day - Crystal Martinez bupropion HCl (smoking deter) 150 mg tablet extended release 12 hr active tablet by mouth once a day Jose R Whittington aspirin 81 mg tablet,delayed release (DR/EC) active 1 tablet by mouth once a day Jose R Whittington OMEPRAZOLE 40 MG ORAL CAPSULE DELAYED RELEASE completed once daily - Juliana Canela tamsulosin 0.4 mg capsule active capsule by mouth once a day Jose R Whittington RANITIDINE HCL 300 MG ORAL TABLET completed ONE TAB DAILY - Jose R Whittington losartan 100 mg tablet completed Take 1 tablet by mouth once a day - Bhanu Brothers SOCIAL HISTORY Date Observation Value Provider social history reviewed E&M magalys coronadoed - no changes required Bakari Perez MD number of years as a smoker 20 a Caitlyn Shawn smoking history, tot al pack/day 0.5 Caitlyn Escobar cigarette use yes Caitlynjacquie Escobar smoking status Former smoker Caitlyn Cachorro s alcohol use, average drinks per day social Bakari Perez MD alcohol use yes Bakari Perez MD social history E&M Marital Statu s: Lauren cisnerosen: 0 O ccupation: Retired Smoking History: P atient is a former smoker. Bakari Perez MD social history reviewed E&M revi ewed - no changes required Bakari Perez MD number of years as a smoker 20 a Sallie Reynolds smoking history, tot al pack/day 0.5 Sallie Reynolds cigarette use yes Sallie Yost arlyn smoking status Former smoker Sallie hdez alcohol use, average drinks per day social Bakari Perez MD alcohol use yes Bakari Perez MD social history E&M Marital Statu s: Lauren cisnerosen: 0 O ccupation: Retired Smoking History: P atient is a former smoker. Bakari Perez MD social history reviewed E&M revi ewed - no changes required Bakari Perez MD number of years as a smoker 20 a Jose R Whittington smoking history, tot al pack/day 0.5 Jose R Pk cigarette use yes Jose R Orosco geraldine smoking status Former smoker Jose R Chang social history E&M Marital Statu s: C edwindren: 0 O ccupation: Retired Smoking History: P atient is a former smoker. René Malagon MD social history reviewed E&M revi ewed - no changes required René Malagon MD number of years as a smoker 20 a Fiona Lopez smoking history, tot al pack/day 0.5 Fiona Lopez cigarette use yes Fiona valdovinos smoking status Former smoker Fiona bravo social history E&M Patient reyna ntly smokes every day. Smoking History: Umm orozco is a former smoker. Bakari Perez MD social history reviewed E&M revi ewed - no changes required Bakari Perez MD number of years as a smoker 20 a Fiona Lopez smoking history, tot al pack/day 0.5 Fiona Lopez cigarette use yes Fiona Zarate bonifacio smoking status Former smoker Fiona bravo social history E&M Patient reyna ntly smokes every day. Smoking History: Umm orozco is a former smoker. Steven Prather social history reviewed E&M revi ewed - no changes required Steven Prather number of years as a smoker 20 a Tonsha Paredes smoking history, tot al pack/day 0.5 Tonsha Paredes cigarette use yes Tonsha Paredes smoking status Former smoker Tonsha Paredes social history E&M Patient reyna ntly smokes every day. Smoking History: Umm orozco is a former smoker. Bakari Perez MD social history reviewed E&M revi ewed - no changes required Bakari Perez MD alcohol use, average drinks per day social Meka Sky alcohol use yes Meka Sky number of years as a smoker 20 a Meka Sky smoking history, tot al pack/day 0.5 Meka Sky cigarette use yes Meka Sky smoking status Former smoker Meka Sky social history E&M Patient reyna ntly smokes every day. Smoking History: Umm orozco is a former smoker. Bakari Perez MD social history reviewed E&M revi ewed - no changes required Bakari Perez MD alcohol use, average drinks per day social Herminia Preston alcohol use yes Altotino Preston number of years as a smoker 20 a Herminia Preston smoking history, tot al pack/day 0.5 Herminia Preston cigarette use yes Herminia Littleam smoking status Former smoker Herminia Little am social history E&M Patient reyna morocho smokes every day. Smoking History: Umm orozco is a former smoker. Bakari Perez MD social history reviewed E&M revi ewed - no changes required Bakari Perez MD alcohol use, average drinks per day social Juliana Canela alcohol use yes Juliana townsend number of years as a smoker 20 a Juliana Canela smoking history, tot al pack/day 0.5 Juliana Canela cigarette use yes Juliana tinajero smoking status Former smoker Juliana chacon social history reviewed E&M revi ewed - no changes required Bakari Perez MD alcohol use, average drinks per day social Juliana Canela smoking/tobacco cess ation, patient education and counseling yes Juliana Canela alcohol use yes Juliana townsend number of years as a smoker 20 a Juliana Canela smoking history, tot al pack/day 0.5 Juliana Canela cigarette use yes Juliana tinajero smoking status current every day smoker K feliciajulianna Canela social history reviewed E&M revi ewed - no changes required Bakari Perez MD alcohol use, average drinks per day social Bakari Perez MD alcohol use yes Bakari Perez MD number of grandchildren Bakari Perez MD U edith Perez MD social history E&M Patient reyna morocho smokes every day. Smoking History: P atngoc currently smokes every day. P atient has been counseled to quit. Bakari Perez MD smoking/tobacco cess ation, patient education and counseling yes Bakari Perez MD social history reviewed E&M revi ewed - no changes required Bakari Perez MD number of years as a smoker 20 a Jose R Whittington smoking history, tot al pack/day 0.5 Jose R Whittington cigarette use yes Jose R chandler smoking status current every day smoker U edith Perez MD FAMILY HISTORY Family Member Condition Mother Family History of Hy pertension: Father Family History of Co ronary Artery Disease: Father Family History of Di abetes: Father Family History of CV A or Stroke: INSURANCE PROVIDERS Payer name Policy type / Coverage type [facility] ID [employer]ICA[employer] (2) Medicaid [id number] ADVANCE DIRECTIVES Name Date DISCUSSED - NO DECISION MADE TREATMENT PLAN Date Name Performer [id number],S, Bakari Perez MD [id number],S, B P today: 145/83 P rior BP: 140/72 (03/12/2022) Labs Reviewed: C reat: 0.75 (09/04/2017) Bakari Perez MD [id number],SBakari MD [id number],S,Per pcp Bakari Perez MD [id number],SBakari MD [id number],C, B P today: 140/72 P rior BP: 112/60 (01/06/2021) Labs Reviewed: C reat: 0.75 (09/04/2017) Bakari Perez MD Cardiology Bakari Perez MD Cardiology: B P today: 145/83 P rior BP: 140/72 (03/12/2022) Labs Reviewed: C reat: 0.75 (09/04/2017) Bakari Perez MD Cardiology Bakari Perez MD Cardiology:Per pcp Bakari Perez MD Cardiology Bakari Perez MD Cardiology: B P today: 140/72 P rior BP: 112/60 (01/06/2021) Labs Reviewed: C reat: 0.75 (09/04/2017) Bakari Perez MD Cardiology:Patient h as quit smoking Bakari Perez MD Cardiology:Newly felipa gnosed His updated medication list for this problem includes: Metformin Hcl 500 Mg Oral Tablet (Metformin hcl) ..... 1 tab twice daily Aspirin Adult Low Dose 81 Mg Oral Tablet Delayed Release (Aspirin) ..... One tab by mouth daily Losartan Potassium 100 Mg Oral Tablet (Losartan potassium) ..... Take 1 tablet by mouth once daily Bakari Perez MD Cardiology:On inhale rs Bakari Perez MD Cardiology:The patie nt is using CPAP on a regular basis. The patient has been benefiting from therapy and should continue use. Bakari Perez MD Cardiology: B P today: 112/60 P rior BP: 140/78 (07/07/2020) Labs Reviewed: C reat: 0.75 (09/04/2017) Bakari Perez MD Cardiology Bakari Perez MD Cardiology follow up René torres MD Cardiology follow up René torres MD Cardiology follow up René torres MD Cardiology follow up René torres MD Cardiology follow up Bakari landeros MD Cardiology follow up :Has quit 1 1/2 years Bakari Perez MD Cardiology follow up : B P today: 159/98 P rior BP: 136/76 (12/17/2019) Labs Reviewed: C reat: 0.75 (09/04/2017) Bakari Perez MD Cardiology follow up Bakari landeros MD TeleHealth Steven Prather TeleHealth: B P today: 136/76 P rior BP: 138/80 (11/07/2018) Labs Reviewed: C reat: 0.75 (09/04/2017) Steven Prather TeleHealth:Atypical. Previous stress test was normal in 2017. Steven Pratehr TeleHealth:Has quit smoking Brennan Prather Cardiology follow up :he had a stress test in February 2017 that was normal and in the absence of any new sx he is clear for his plantar fascitis surgery and is low risk. Bakari Perez MD Cardiology follow up : B P today: 138/80 P rior BP: 118/70 (05/30/2018) Labs Reviewed: C reat: 0.75 (09/04/2017) Bakari Perez MD Cardiology follow up:no recurren ce Bakari Perez MD Cardiology Bakari Perez MD Cardiology Bakari Perez MD Cardiology:will chec k orthostatics. No orthostatic changes but SBP was 100, so will change Losartan-HCTZ to Losartan. B P today: 118/70 P rior BP: 136/80 (01/30/2018) Labs Reviewed: C reat: 0.75 (09/04/2017) Bakari Perez MD Cardiology Follow up :Ivan Lawson is a 57 Years Old Male who was seen in the office today. Bakari Perez MD Cardiology Follow up Bakari landeros MD Cardiology Follow up : B P today: 136/80 P rior BP: 152/90 (08/01/2017) Labs Reviewed: C reat: 0.75 (09/04/2017) Bakari Perez MD Cardiology Follow up Bakari landeros MD Cardiology Follow up Bakari landeros MD Cardiology Follow up :Will try switching amlodipine to cardizem 300mg daily. BP today: 152/90 P rior BP: 143/80 (03/11/2017) Bakari Perez MD Cardiology Follow up :The Patient was reencouraged to stop smoking. Bakari Perez MD Cardiology Follow up Bakari landeros MD Cardiology: B P today: 143/80 P rior BP: 155/90 (02/01/2017) Bakari Perez MD Cardiology:The Patie nt was reencouraged to stop smoking. Bakari Perez MD Cardiology:Negative stress. Chest pain most likely noncardiac. Will follow up with him in 6 months. Bakari Perez MD Cardiology: B P today: 155/90 Bakari Perez MD Cardiology:The Patient was reenc ouraged to stop smoking. Bakari Perez MD Cardiology Bakari Perez MD Cardiology:Atypical chest pains. Will check an echo and nuclear stress test. Bakari Perez MD Date Name Holter Monitor 24 Hr Complete Echo BASIC METABOLIC PANE L W/EGFR STR - Nuclear Complete Echo HISTORY OF PROCEDURES Procedure Date Procedure Name Provider Procedure Notes S tatus EKG Bakari Perez MD completed EKG Bakari Perez MD completed EKG Bakari Perez MD completed SNOMED-CT: [id number] Physical Exam, Performed: Pulse Exam of Foot Bakari Perez MD completed SNOMED-CT: 649998110 [id number] Current Medications Documented Bakari Perez MD completed SNOMED-CT: [id number] Physical Exam, Performed: Pulse Exam of Foot Bakari Perez MD completed Stress EKG Ariana Gray MD completed Regadenoson, 4 units Bakari Perez MD completed Cardiolite, 2 units Bakari Perez MD completed SPECT Images Ariana Gray MD complet ed SNOMED-CT: [id number] Physical Exam, Performed: Pulse Exam of Foot Bakari Perez MD completed EKG Bakari Perez MD completed SNOMED-CT: 109049838 [id number] Current Medications Documented Bakari Perez MD completed
== END 2024-11-25 09:23 | disposition home or self-care (01) ==
PROVIDERS: PCP Emergency Medicine; Visit Provider Internal Medicine Critical Care Medicine
DX: Z12.2 Encounter for screening for malignant neoplasm of respiratory organs (principal); Z87.891 Personal history of nicotine dependence
CPT/HCPCS: 71271